=== PATIENT | female | born 1940 | race Caucasian/White ===

== ENCOUNTER → 2017-01-28 | Outpatient (REF) | payer OTHER ==
[~2017-01-28] MED LIST: ASPI1TAB PO; ATOR1TAB19 PO; BACT800T5 PO; BUSP5TA PO; COUM2.5T17 PO; DIFL150T PO; DULO1CAP3 PO; LORA1TAB12 PO; METF500T13 PO; NEXI40CA PO; PRAV80TA PO; RANI150C PO; RELAFEN PO; TRAM50TA2 PO; TRAZ50TA11 PO; TYLE167L PO; VITA1CAP40 PO; VITA20008 PO
[2017-01-28 16:56] LABS: ANION GAP 9 MEQ/L (8-16); BLOOD UREA NITROGEN 16 MG/DL (7-18); CALCIUM LEVEL 8.7 MG/DL (8.8-10.2); CARBON DIOXIDE LEVEL 26 MEQ/L (21-32); CHLORIDE LEVEL 104 MEQ/L (98-107); CREATININE FOR GFR 0.72 MG/DL (0.55-1.02); GLOMERULAR FILTRATION RATE > 60.0 (>39); GLUCOSE, FASTING 104 MG/DL (83-110); POTASSIUM SERUM 4.1 MEQ/L (3.5-5.1); SODIUM LEVEL 139 MEQ/L (136-145); TOTAL PROTEIN 7.3 GM/DL (6.4-8.2)
[2017-01-29 11:57] LABS: ALBUMIN % 53.4 % (55.8-66.1); GAMMA GLOBULIN % 15.8 % (11.1-18.8)
== END ==
LOC: M SFHCPLAZ 13:42
DX: M54.42 Lumbago with sciatica, left side (principal); E11.9 Type 2 diabetes mellitus without complications
CPT/HCPCS: 36415; 80048; 82043; 83036; 84165; 84166; 85652; 86140; G0463

== ENCOUNTER → 2017-05-05 | Outpatient (REF) | payer OTHER | LOC: M SFHCPLAZ 10:57 | DX: Z00.00 Encounter for general adult medical examination without abnormal findings (principal); B02.9 Zoster without complications; Z79.899 Other long term (current) drug therapy | CPT/HCPCS: 36415; 80061; 82043; 83036; G0463 ==

== ENCOUNTER → 2017-06-01 | Outpatient (CLI) | payer OTHER ==
[2017-06-01 11:03] LABS: MEAN CORPUSCULAR HGB CONC 32.5 g/dl (32.0-36.5); MEAN CORPUSCULAR VOLUME 92.3 fl (80.0-96.0); RED CELL DISTRIBUTION WIDTH 13.6 % (11.5-14.5); WHITE BLOOD COUNT 9.9 10^3/uL (4.0-10.0)
[2017-06-01 11:06] LABS: CALCIUM OXALATE CRYSTALS SMALL
[2017-06-01 11:32] LABS: ALBUMIN 3.8 GM/DL (3.2-5.2); ALBUMIN/GLOBULIN RATIO 0.97 (1.00-1.93); ALKALINE PHOSPHATASE 53 U/L (45-117); ALT/SGPT 19 U/L (12-78); ANION GAP 7 MEQ/L (8-16); AST/SGOT 17 U/L (15-37); BILIRUBIN,TOTAL 0.2 MG/DL (0.2-1.0); BLOOD UREA NITROGEN 17 MG/DL (7-18); CALCIUM LEVEL 10.2 MG/DL (8.8-10.2); CARBON DIOXIDE LEVEL 28 MEQ/L (21-32); CHLORIDE LEVEL 104 MEQ/L (98-107); CREATININE FOR GFR 0.68 MG/DL (0.55-1.02); GLOMERULAR FILTRATION RATE > 60.0 (>39); GLUCOSE, FASTING 108 MG/DL (83-110); POTASSIUM SERUM 4.4 MEQ/L (3.5-5.1); SODIUM LEVEL 139 MEQ/L (136-145); TOTAL PROTEIN 7.7 GM/DL (6.4-8.2)
[2017-06-01 11:33] LABS: INR 0.93
--- NOTE | 2017-06-01 13:46 | ECGEPIP ---
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
--- NOTE | 2017-06-01 14:23 | REP ---
Chest two views HISTORY: Left hip arthritis Comparison: 02/01/2014 A calcified granuloma is present in the left lower lobe. The right lung is clear. The heart is normal in size. The pulmonary vasculature is normal in appearance. The bony structure is intact. IMPRESSION: No acute disease. Signed by Miles Wilson MD 06/01/2017 02:14 P
== END ==
LOC: M ADMPAT 09:20
PROVIDERS: ATTEND Orthopaedic Surgery
DX: M16.12 Unilateral primary osteoarthritis, left hip (principal); Z79.01 Long term (current) use of anticoagulants

== ENCOUNTER 2017-06-14 05:45 | Inpatient (IN) | payer OTHER ==
[2017-06-01 09:45] VITALS: BP 156/74
--- NOTE | 2017-06-09 12:38 | HPE ---
DATE OF ADMISSION: 06/14/2017 HISTORY OF PRESENT ILLNESS: This is a pleasant female with continuing symptomatic left hip osteoarthritis. The patient has consented for a left total hip arthroplasty per Dr. Arnold Scanlon. Medical optimization per Dr. Costa. I did review her note with optimization, and x-rays showed advanced osteoarthritis. ALLERGIES: SURGICAL TAPE causes some sort of skin excoriation. CURRENT MEDICATION LIST: - Cymbalta 20 mg - cyclobenzaprine HCl 5 mg MEDICAL PROBLEM LIST: Includes left hip osteoarthritis. Obesity. Anxiety. Recent diagnosis of hypertension, which is going to be followed up by Dr. Costa, noted in her note. SURGICAL HISTORY: Tubal ligation. FAMILY HISTORY: Is pertinent for arthritis, hypertension. SOCIAL HISTORY: She is a former smoker. Denies ethanol intake or illicit drugs. REVIEW OF SYSTEMS: She denies chest pain, shortness of breath, dyspnea on exertion, fever, chills, malaise, upper respiratory or urinary tract symptoms. PHYSICAL EXAMINATION: Height 5 feet 5 inches, weight 252, temperature 98.6, blood pressure 120/70, pulse 64, respiration 16. She is a pleasant obese female, in no acute distress. She is alert and oriented times three. Mood and affect are appropriate. She arrives in a wheelchair with her helping. Left hip range of motion is limited and irritable through internal and external range of motion. Bilateral lower extremities are benign, noninfectious-looking, with no breaks. Bowel soft, nontender times four. Chest rises symmetrically. Regular rate and rhythm. Lungs clear to auscultation. Neck supple. Negative jugular venous distention (JVD) or bruits. Normocephalic. LABORATORIES: Were reviewed. She had heavy susceptible Staphylococcus aureus and, therefore, was provided a bactroban ointment and Hibiclens wash prescription with instructions. Urine culture negative. Remaining laboratories look grossly within normal limits. Anion gap 7, albumin-globulin ratio 0.97, ESR 62, GFR greater than 60. I did not have access to her chest x-ray and electrocardiogram (EKG) today, but once again her clearance note was reviewed, and she was deemed to be moderate risk for procedure, per Dr. Georgette Muro, with a planned followup in 1 week for elevated blood pressure (BP). Consent is updated. IMPRESSION: 1. Symptomatic left hip osteoarthritis. 2. The patient consented for a left total hip arthroplasty per Dr. Arnold Scanlon. 3. Medical optimization per Dr. Georgette Muro. 4. On-call to operating room (OR), 2 grams intravenous (IV) Kefzol in OR. 5. Sequential compression device (SCD) and thromboembolic deterrents (TEDs) in OR. 6. The patient is prescribed bactroban and Hibiclens prophylaxis per heavy susceptible Staphylococcus aureus on nasal culture. MTDD
[2017-06-14] VITALS (8 sets, daily range): BP systolic 147–176; BP diastolic 79–98; O2SAT 96
[~2017-06-14] VITALS: Ht 165.1 cm; Wt 96.2 kg
[~2017-06-14 05:45] MED LIST changes: -COUM2.5T17 PO; -TRAM50TA2 PO
[2017-06-14] MEDS ORDERED: LR 1,000 ML IV SCH ×2 (06:00→10:45)
[2017-06-14] MEDS ORDERED: LIDOCAINE 1% MDV 20ML VIAL SQ PRN (06:15)
[2017-06-14] MEDS ORDERED: LR 1,000 ML IV ONE (06:15)
[2017-06-14] MEDS ORDERED: TRANEXAMIC ACID 100 MG/ML 10ML VIAL As Ordered ONE (06:18)
[2017-06-14] MEDS ORDERED: BUPIVACAINE HCL 0.25% 30 ML VIAL As Ordered ONE (06:19)
[2017-06-14] MEDS ORDERED: ceFAZolin 1GM INJ (J0690) As Ordered ONE (06:19)
[2017-06-14] MEDS ORDERED: EPINEPHrine INJ 1 MG/ML 1ML AMP As Ordered ONE (06:19)
[2017-06-14] MEDS ORDERED: fentaNYL 100 MCG/2 ML INJECTION (J3010) As Ordered ONE (07:04)
[2017-06-14] MEDS ORDERED: ONDANSETRON 4MG/2ML VIAL (J2405) As Ordered ONE (07:04)
[2017-06-14] MEDS ORDERED: LIDOCAINE 2% INJ 100 MG/5 ML SDV (FOR ANES.) As Ordered ONE (07:04)
[2017-06-14] MEDS ORDERED: ROCURONIUM BROMIDE 50 MG/5 ML VIAL/SYRINGE As Ordered ONE (07:04)
[2017-06-14] MEDS ORDERED: PROPOFOL 200 MG/20 ML VIAL As Ordered ONE (07:04)
[2017-06-14] MEDS ORDERED: dexameTHASONE 4 MG/ML 1ML VIAL (J1100) As Ordered ONE (07:04)
[2017-06-14] MEDS ORDERED: PHENYLephrine HCL 500 MCG/5 ML (100MCG/ML) SYRINGE (J2370) As Ordered ONE ×2 (07:04→09:16)
[2017-06-14] MEDS ORDERED: MIDAZOLAM INJ 2 MG/2 ML VIAL (J2250) As Ordered ONE (07:05)
--- NOTE | 2017-06-14 08:28 | IPN ---
DATE: 06/14/2017 The patient is seen and examined. She wished to go ahead with a left total hip arthroplasty. She understands the nature of this, the risks of bleeding, infection, damage to nerves, vessels, persistent pain, wear loosening, dislocation, leg length inequality, blood clots, medical problems, among others.
[2017-06-14] MEDS: DULoxetine 30 MG CAP (CYMBALTA) PO SCH (09:00)
--- NOTE | 2017-06-14 10:27 | RO ---
DATE OF PROCEDURE: 06/14/2017 PREOPERATIVE DIAGNOSIS: Left hip osteoarthritis. POSTOPERATIVE DIAGNOSIS: Left hip osteoarthritis. PROCEDURE: Left total hip arthroplasty using a Theodosia standard size 5 stem and a +5 36 ball and a 52 cup. SURGEON: Arnold Scanlon MD MANAGER ACADEMIC: Mike Stapleton PA-C ANESTHESIA: Spinal ESTIMATED BLOOD LOSS (EBL): Less than 200. COMPLICATION: None. INDICATION: A 76-year-old morbidly obese woman with severe left hip arthritis that has been refractory to conservative management. She wished to go ahead with surgical treatment. She understood the nature of the procedure, the risks of bleeding, infection, damage to nerves, vessels, persistent pain, wear loosening, dislocation, leg length inequality, blood clots, medical problems, , among others. DESCRIPTION OF PROCEDURE: The patient taken to the operating room and placed in supine position after spinal anesthesia was induced. We then turned her in the right lateral decubitus position and placed her on the Girish positioner. All areas were padded appropriately. The left hip was prepped and draped in the usual sterile fashion. Time-out was performed. I then created a longitudinal incision over the lateral aspect of the hip. She had significant subcutaneous fatty tissue until I was able to get down to the fascia vanna. The incision was a little longer than typical because of her obesity. I then incised the fascia vanna and exposed the abductors. The anterior 40% or so of the abductors were dissected off the anterior aspect of the femur as I dissected along the femoral neck, splitting the labrum. I gradually externally rotated the femur as I dissected around until it was freed up down to the lesser trochanter. After two or three attempts, we were able to get the hip dislocated, but this was fairly challenging. She did have severe arthritis. I then used the canal initiating reamer followed by the intramedullary canal finding reamer followed by the lateralizing reamer and then cut the neck off about three-quarters of a fingerbreadth up from the lesser trochanter. The head was removed. I then prepared the acetabulum, removing any soft tissue from around the acetabulum. It was noted that she had significant anterior inferior osteophytes. I then sequentially reamed up to a size 51, which had good bleeding bone. I was able to medialized it down to about the floor. Good bleeding bone was noted. I then irrigated copiously and then selected the 52 cup, which was impacted in place in the appropriate amount of anteversion and horizontal tilt. Excellent position and excellent seating was noted. Mcleod hole eliminator was placed, and this was done after I confirmed that the cup was well seated. The polyethylene was then inserted. impacted in place, size 52 x 36, and the osteophytes were then removed with an osteotome and a rongeur. I then prepared the femur with broaches and sequentially broached up to a size 5, which I was able to countersink slightly, so I used the calcar planer. I then trialed off this, and it felt like the +5 was the most appropriate for stability and soft tissue tension. I put the hip through a range of motion, and excellent stability was noted. There was minimal shuck in full extension. I had irrigated multiple times and again irrigated at this point I had irrigated prior to cup placement. I irrigated the canal after removing the trial components and then inserted the size 5 Theodosia stem, impacted it down. Excellent fit was noted, and it was very solid. I dried the taper, placed the +5 36 ball, impacted this in place, and then reduced the hip with the marketing assistant's help, and put the hip through a range of motion. Again, excellent stability and soft tissue tension was noted. There was no dislocation with extension, external rotation, flexion, internal rotation, although her thigh did impinge on her pannus so I was not able to flex her up to fully 90 degrees due to her obesity. I irrigated again, used the tranexamic acid (TXA) solution, and repaired the minimus with #1 Vicryl suture, the abductor with #1 Vicryl suture with several good purchases and a couple through the bone. Irrigated. Repaired the fascia vanna with interrupted #1 Vicryl sutures, followed by running Stratafix suture starting in the midportion, and we each worked in opposite directions. I also placed a Stratafix #0 in the subcutaneous tissue to close down some of the space. and this help reapproximate the fatty tissue. The subcutaneous was closed with #2-0 Vicryl, the skin with sean, and a sterile dressing was applied. She was taken to the recovery room in stable condition. There were no known complications. The plan will be routine postoperative for hip replacement. The marketing assistant was instrumental in holding retractors and reducing and dislocating the hip and assisting in wound closure. This was coded as an unusually difficult procedure because the patient had morbid obesity, had significant subcutaneous fat which made the exposure much more difficult and made it much more difficult to reduce and dislocate the hip, and overall placing the acetabulum, wound closure, etc. was more time consuming and more challenging.
[2017-06-14] MEDS ORDERED: MORPHINE 1MG/ML IN 0.9% NACL 100ML IV BAG As Ordered ONE (10:29)
[2017-06-14] MEDS ORDERED: ONDANSETRON 4MG/2ML VIAL (J2405) IV PRN ×2 (10:45)
[2017-06-14] MEDS ORDERED: NALBUPHINE HCL 10 MG/ML AMP (J2300) IV PRN (10:45)
[2017-06-14] MEDS ORDERED: MORPHINE 1MG/ML IN 0.9% NACL 100ML IV BAG IV PRN (10:45)
[2017-06-14] MEDS ORDERED: PERCOCET 5MG/325MG TAB PO PRN (10:45)
[2017-06-14] MEDS ORDERED: NALOXONE INJ 0.4 MG/1 ML VIAL (J2310) IV PRN (10:45)
[2017-06-14] MEDS ORDERED: FLEET ENEMA PR PRN (10:45)
[2017-06-14] MEDS ORDERED: EPIDURAL/PCA KEYS XX PRN (10:45)
[2017-06-14] MEDS ORDERED: diphenhydrAMINE INJ 50MG/ML VIAL (J1200) IV PRN (10:45)
[2017-06-14] MEDS ORDERED: fentaNYL 100 MCG/2 ML INJECTION (J3010) IV PRN (10:45)
[2017-06-14] MEDS ORDERED: ACETAMINOPHEN TAB 650MG DOSE (2X325MG) PO PRN (10:45)
[2017-06-14] MEDS: LR 1,000 ML IV SCH ×2 (13:05→17:04)
[2017-06-14] MEDS ORDERED: WARFARIN SOD 5 MG TAB PO ONE (17:00)
[2017-06-14] MEDS ORDERED: DEXTROSE 50% 50 ML SYRINGE IV PRN (20:45)
[2017-06-14] MEDS ORDERED: GLUCAGON FOR INJ 1 MG VIAL (J1610) SC PRN (20:45)
[2017-06-14] MEDS ORDERED: GLUCOSE 4 GM CHEW TABLET PO PRN (20:45)
[2017-06-14] MEDS: HumaLOG INSULIN (NovoLOG) PER UNIT SC SCH (21:00)
[2017-06-14] MEDS: RAMELTEON 8 MG TAB (ROZEREM) PO SCH (21:00)
[2017-06-14] MEDS: PRAVASTATIN 20 MG TAB PO SCH (21:31)
[2017-06-15 02:00] VITALS: BP 141/81
[2017-06-15 06:00] VITALS: BP 143/80
[2017-06-15 06:50] LABS: MEAN CORPUSCULAR HEMOGLOBIN 30.1 pg (27.0-33.0); MEAN CORPUSCULAR VOLUME 94.1 fl (80.0-96.0); PLATELET COUNT, AUTOMATED 288 10^3/uL (150-450); RED CELL DISTRIBUTION WIDTH 13.1 % (11.5-14.5); WHITE BLOOD COUNT 13.9 10^3/uL (4.0-10.0)
[2017-06-15 07:09] LABS: INR 1.13
[2017-06-15] MEDS: MIRALAX *UNIT DOSE* 17GM PACKET PO SCH (08:06)
[2017-06-15] MEDS: SENOKOT S TAB PO SCH ×2 (08:06→20:53)
[2017-06-15] MEDS: HumaLOG INSULIN (NovoLOG) PER UNIT SC SCH ×4 (08:06→20:56)
[2017-06-15] MEDS: MOM 30ML SUSPENSION UDC PO SCH (08:06)
[2017-06-15] MEDS: DULoxetine 30 MG CAP (CYMBALTA) PO SCH (08:06)
[2017-06-15] MEDS: PERCOCET 5MG/325MG TAB PO PRN ×3 (08:07→20:55)
[2017-06-15] MEDS: ONDANSETRON 4 MG TAB (S0181) PO PRN ×2 (08:19→12:30)
--- NOTE | 2017-06-15 10:46 | REP ---
LEFT HIP, TWO VIEWS: Two views of the left hip are performed. Total hip prosthesis is noted in good position. Structures are well aligned and intact. Signed by Clifton Cummings MD 06/16/2017 04:24 P
[2017-06-15 13:32] VITALS: O2SAT 95
--- NOTE | 2017-06-15 13:49 | IPN ---
DATE OF SERVICE: 06/15/2017 Ms. Youssef is feeling well this morning. She has a number of visitors. She is not complaining of any chest pain, shortness of breath. Is tolerating a diet. Has been nauseous but did receive Zofran with good effect. Temperature is 97.3, pulse 94, respiratory rate 13, blood pressure 143/80, 97% on 2 liters. Intake and output (I and O) notable for a positive fluid balance of 2000. Body mass index 35.3. Is awake, appropriately interactive, pleasantly conversant. Neck supple. Breathing is symmetrical. I-E ratio is 1:3. Heart is distant sounding. Normal S1, S2. Abdomen soft, doughy, nontender. White cell count 13.9, hemoglobin 10.7, fasting glucose of 145. My assessment is as follows: This is a 76-year-old status post left total hip replacement. The plan is as follows: 1. Orthopedic. Diet, activity, deep venous thrombosis (DVT) prophylaxis, discharge pain medications per orthopedics. 2. The patient has a history of hypertension, which is reasonably well controlled for the current setting. 3. The patient has a history of anxiety. Continued on duloxetine. 4. The patient has a history of hyperlipidemia. On statins. 5. The patient has a history of diabetes. On metformin. During the course of her hospital stay, will be placed on insulin.
[2017-06-15] MEDS ORDERED: WARFARIN SOD 5 MG TAB PO ONE (17:00)
[2017-06-15] MEDS: PRAVASTATIN 20 MG TAB PO SCH (20:53)
[2017-06-15] MEDS: RAMELTEON 8 MG TAB (ROZEREM) PO SCH (20:56)
[2017-06-15 22:00] VITALS: BP 94/58
[2017-06-16] MEDS: PERCOCET 5MG/325MG TAB PO PRN ×4 (01:11→14:07)
[2017-06-16 06:00] VITALS: BP 101/71
[2017-06-16 06:56] LABS: MEAN CORPUSCULAR HEMOGLOBIN 29.7 pg (27.0-33.0); MEAN CORPUSCULAR HGB CONC 31.1 g/dl (32.0-36.5); MEAN CORPUSCULAR VOLUME 95.5 fl (80.0-96.0); PLATELET COUNT, AUTOMATED 235 10^3/uL (150-450); RED CELL DISTRIBUTION WIDTH 13.2 % (11.5-14.5)
[2017-06-16 07:10] LABS: INR 1.34
[2017-06-16 07:15] LABS: ANION GAP 2 MEQ/L (8-16); BLOOD UREA NITROGEN 12 MG/DL (7-18); CALCIUM LEVEL 8.5 MG/DL (8.8-10.2); CARBON DIOXIDE LEVEL 35 MEQ/L (21-32); CHLORIDE LEVEL 99 MEQ/L (98-107); CREATININE FOR GFR 0.68 MG/DL (0.55-1.02); GLOMERULAR FILTRATION RATE > 60.0 (>39); GLUCOSE, FASTING 149 MG/DL (83-110); SODIUM LEVEL 136 MEQ/L (136-145)
[2017-06-16] MEDS: DULoxetine 30 MG CAP (CYMBALTA) PO SCH (08:59)
[2017-06-16] MEDS: MOM 30ML SUSPENSION UDC PO SCH (08:59)
[2017-06-16] MEDS: MIRALAX *UNIT DOSE* 17GM PACKET PO SCH (08:59)
[2017-06-16] MEDS: SENOKOT S TAB PO SCH ×2 (08:59→19:46)
[2017-06-16] MEDS: HumaLOG INSULIN (NovoLOG) PER UNIT SC SCH ×4 (09:00→22:00)
[2017-06-16] MEDS ORDERED: WARFARIN SOD 4 MG TAB PO ONE (17:00)
[2017-06-16] MEDS ORDERED: traMADol 50 MG TAB PO ONE (17:15)
[2017-06-16] MEDS ORDERED: traMADol 50 MG TAB PO SCH ×2 (17:30→21:00)
--- NOTE | 2017-06-16 19:43 | IPN ---
DATE: 06/16/2017 Ms. Youssef has had some uncontrolled pain overnight. This morning she is somewhat somnolent. Her family is concerned that with the use of two Percocet pills she becomes too tired and will not be able to do physical therapy today. Temperature is 98.4, pulse 82, respirations 18, blood pressure 101/71, 95% on 2 liters. Intake and output notable for positive fluid status of 400. No bowel movements noted. She is awake when aroused easily. Mucous membranes moist. Neck supple, thick, Breathing is symmetrical. Inspiratory to expiratory (I-to-E) ratio is 1:3. No wheezes, rales, or rhonchi. Heart is distant sounding. Normal S1, S2. Radial pulses 2+. Abdomen soft. Hypoactive bowel sounds. Nontender. White cell count 12, hemoglobin 9.8, platelets of 235. BUN 12, creatinine 0.68. ASSESSMENT: This is a 76-year-old status post left total hip replacement. PLAN: 1. Orthopedic. Diet, activity, deep vein thrombosis (DVT) prophylaxis, discharge, gastrointestinal (GI) regimen, and pain medications per orthopedics. In this instance though, I discussed the use of two Percocets with the orthopedic team, and I have decreased on the patient to a maximum of one Percocet at a time, which hopefully will accomplish dual goals of pain management and limiting sedation. 2. Patient has hypertension, which is reasonably well controlled for the setting. 3. Patient has history of anxiety, on duloxetine. 4. Patient has hyperlipidemia, on statins, which are continued in the perioperative period. 5. Patient has a history of diabetes and is on insulin. Can be returned to metformin at the time of discharge.
[2017-06-16] MEDS: RAMELTEON 8 MG TAB (ROZEREM) PO SCH (19:46)
[2017-06-16] MEDS: PRAVASTATIN 20 MG TAB PO SCH (19:46)
[2017-06-16] MEDS: traMADol 50 MG TAB PO PRN (19:48)
[2017-06-16 21:00] VITALS: O2SAT 95
[2017-06-16 22:00] VITALS: BP 121/63
[2017-06-17] MEDS: traMADol 50 MG TAB PO PRN ×3 (00:27→12:17)
[2017-06-17 06:00] VITALS: BP 139/94
[2017-06-17 07:04] LABS: INR 1.26
[2017-06-17] MEDS: MOM 30ML SUSPENSION UDC PO SCH (08:16)
[2017-06-17] MEDS: MIRALAX *UNIT DOSE* 17GM PACKET PO SCH (08:16)
[2017-06-17] MEDS: HumaLOG INSULIN (NovoLOG) PER UNIT SC SCH ×4 (08:16→21:00)
[2017-06-17] MEDS: DULoxetine 30 MG CAP (CYMBALTA) PO SCH (08:17)
[2017-06-17] MEDS: SENOKOT S TAB PO SCH ×2 (08:17→22:32)
[2017-06-17] MEDS ORDERED: COUM2.5T17 PO (09:15)
[2017-06-17] MEDS ORDERED: TRAM50TA2 PO (09:15)
[2017-06-17 14:00] VITALS: BP 145/70
[2017-06-17] MEDS: ACETAMINOPHEN 500 MG TAB PO SCH ×3 (16:32→22:32)
[2017-06-17] MEDS ORDERED: WARFARIN SOD 7.5 MG TAB PO ONE (17:00)
[2017-06-17] MEDS: RAMELTEON 8 MG TAB (ROZEREM) PO SCH (21:00)
[2017-06-17 22:00] VITALS: BP 147/66
[2017-06-17] MEDS: PRAVASTATIN 20 MG TAB PO SCH (22:30)
--- NOTE | 2017-06-18 05:44 | IPN ---
DATE: 06/17/2017 SUBJECTIVE: Ms. Youssef is much more awake and interactive today. When I come in to evaluate her, she is sitting in a chair and her daughter is in the bed. No complaints of chest pain. No shortness of breath. OBJECTIVE: VITAL SIGNS: Temperature is 96.7, pulse 94, respiratory rate 18, blood pressure 139/94, 91% on two liters. INTAKE AND OUTPUT: Notable for negative fluid status of minus 660. GENERAL: She is awake, appropriately interactive. LUNGS: Breathing is symmetrical. I to E ratio is 1:3. No wheezes, rales, or rhonchi. No accessory muscle use. Speaking in complete sentences. HEART: Regular rate and rhythm. Radial pulses 2+. Capillary refill is less than two seconds. ABDOMEN: Soft, somewhat distended. Hypoactive bowel sounds. LABORATORY DATA: White cell count 12, hemoglobin 9.8, platelets 235. BUN 12, creatinine 0.68. ASSESSMENT: This is a 76-year-old status post left total hip replacement. PLAN: 1. Orthopedic, diet, deep venous thrombosis (DVT) prophylaxis, pain management and gastrointestinal (GI) regimen per orthopedics. 2. The patient has hypertension which is reasonably well controlled in the current setting. 3. The patient has anxiety on duloxetine. 4. The patient has hyperlipidemia on statin. 5. The patient has diabetes, currently on insulin. Fingersticks are reasonably well controlled for the current setting. Will be transitioned to metformin at the time of discharge.
[2017-06-18 06:00] VITALS: BP 138/99
[2017-06-18 07:42] LABS: INR 1.45
[2017-06-18] MEDS: SENOKOT S TAB PO SCH (08:35)
[2017-06-18] MEDS: DULoxetine 30 MG CAP (CYMBALTA) PO SCH (08:35)
[2017-06-18] MEDS: ACETAMINOPHEN 500 MG TAB PO SCH (08:35)
[2017-06-18] MEDS: MOM 30ML SUSPENSION UDC PO SCH (08:35)
[2017-06-18] MEDS: MIRALAX *UNIT DOSE* 17GM PACKET PO SCH (08:35)
[2017-06-18] MEDS: HumaLOG INSULIN (NovoLOG) PER UNIT SC SCH ×2 (08:35→12:00)
--- NOTE | 2017-06-21 08:22 | DSES ---
DATE OF ADMISSION: 06/14/2017 DATE OF DISCHARGE: 06/18/2017 HISTORY OF PRESENT ILLNESS: Is a pleasant female with continuing symptomatic left knee osteoarthritis. She consented for a left total knee arthroplasty per Dr. Arnold Sacnlon. Medical optimization was performed by Dr. Costa. X-rays were consistent with advanced osteoarthritis. OPERATION PERFORMED: Left total hip arthroplasty. HOSPITAL COURSE: The patient uneventfully underwent left total hip arthroplasty on under spinal anesthesia and was returned to recovery comfortable. Hospital team felt the patient ready to be discharged on 06/18/2017 with the following instructions: Weightbearing as tolerated left lower extremity with a walker, Coumadin and PATIENCE stockings times 30 days, diet is regular, Percocet as needed for pain, Optifoam dressing change in 4 days time. Followup in clinic for wound check, staple removal 12-14 days. The patient is encouraged to contact the office sooner with increased pain, redness, drainage, bleeding, numbness down his lower extremity, fever greater than 101 or further concerns. NAMITA
== END 2017-06-18 13:30 | disposition home health service (06) | DRG 470 ==
LOC: M OR 05:45 → M MS5PR 13:05
PROVIDERS: ADMIT Orthopaedic Surgery; ATTEND Orthopaedic Surgery
PROC: 0SRB0JA Replacement of Left Hip Joint with Synthetic Substitute, Uncemented, Open Approach (ICD-10-PCS; principal; 2017-06-14 07:30)
DX: M16.12 Unilateral primary osteoarthritis, left hip (principal); I10 Essential (primary) hypertension; Z79.899 Other long term (current) drug therapy; E66.9 Obesity, unspecified; F41.9 Anxiety disorder, unspecified; Z87.891 Personal history of nicotine dependence; E78.5 Hyperlipidemia, unspecified; E11.9 Type 2 diabetes mellitus without complications; Z79.4 Long term (current) use of insulin

== ENCOUNTER → 2017-06-21 | Outpatient (REF) | payer OTHER ==
[~2017-06-21] MED LIST changes: +COUM2.5T17 PO; +TRAM50TA2 PO
[2017-06-21 14:00] LABS: INR 1.68
== END ==
LOC: M SHH 13:24
PROVIDERS: ATTEND Nurse Practitioner Family
DX: Z51.81 Encounter for therapeutic drug level monitoring (principal); Z79.01 Long term (current) use of anticoagulants

== ENCOUNTER → 2017-07-01 | Outpatient (REF) | payer OTHER ==
[2017-07-01 15:29] LABS: INR 1.67
== END ==
LOC: M SHH 15:08
PROVIDERS: ATTEND Nurse Practitioner Family
DX: Z51.81 Encounter for therapeutic drug level monitoring (principal); Z79.01 Long term (current) use of anticoagulants

== ENCOUNTER → 2017-07-08 | Outpatient (REF) | payer OTHER ==
[2017-07-08 16:24] LABS: INR 1.96
== END ==
LOC: M SHH 15:49
PROVIDERS: ATTEND Nurse Practitioner Family
DX: Z51.81 Encounter for therapeutic drug level monitoring (principal); Z79.01 Long term (current) use of anticoagulants

== ENCOUNTER → 2017-07-12 | Outpatient (REF) | payer OTHER ==
[2017-07-12 12:54] LABS: INR 1.7
== END ==
LOC: M SHH 12:03
PROVIDERS: ATTEND Nurse Practitioner Family
DX: Z79.01 Long term (current) use of anticoagulants (principal)

== ENCOUNTER → 2017-12-25 | Outpatient (REF) | payer OTHER ==
[2017-12-25 20:02] LABS: APPEARANCE, URINE CLOUDY (CLEAR); BACTERIA, URINE AUTO 2+ (NEGATIVE); BILIRUBIN, URINE AUTO NEGATIVE (NEGATIVE); BLOOD, URINE BLOOD 1+ (NEGATIVE); COLOR, URINE AMBER (YELLOW); GLUCOSE, URINE (UA) AUTO NEGATIVE (NEGATIVE); KETONE, URINE AUTO NEGATIVE (NEGATIVE); LEUKOCYTE ESTERASE, URINE AUTO 2+ (NEGATIVE); MUCUS, URINE SMALL (NEGATIVE); NITRITE, URINE AUTO POSITIVE (NEGATIVE); PROTEIN, URINE AUTO NEGATIVE (NEGATIVE); RBC, URINE AUTO 2 /HPF (0-3); SPECIFIC GRAVITY URINE AUTO 1.025 (1.002-1.035); SQUAMOUS EPITHELIAL CELL UR AU 6 /HPF (0-6); UROBILINOGEN, URINE AUTO 0.2 mg/dL (0.0-2.0); WBC, URINE AUTO 44 /HPF (0-3)
== END ==
LOC: M LAB REF 15:23
DX: R30.0 Dysuria (principal)
CPT/HCPCS: 81001

== ENCOUNTER → 2018-06-23 | Outpatient (REF) | payer OTHER | LOC: M SFHCPLAZ 14:47 | DX: Z00.00 Encounter for general adult medical examination without abnormal findings (principal); L74.9 Eccrine sweat disorder, unspecified ==

== ENCOUNTER → 2018-07-04 | Outpatient (REF) | payer OTHER ==
[2018-07-04 12:04] LABS: BASO # 0.1 10^3/uL (0.0-0.2); BASO % 0.8 % (0.0-1.0); EOS # 0.4 10^3/uL (0.0-0.50); EOS % 4.5 % (0.0-3.0); HEMATOCRIT 41.1 % (36.0-47.0); HEMOGLOBIN 13.2 g/dl (12.0-15.5); IMMATURE GRANULOCYTE % 0.2 % (0-3.0); LYMPH # 2.4 10^3/uL (1.5-4.5); LYMPH % 27.5 % (24.0-44.0); MEAN CORPUSCULAR HEMOGLOBIN 29.1 pg (27.0-33.0); MEAN CORPUSCULAR HGB CONC 32.1 g/dl (32.0-36.5); MEAN CORPUSCULAR VOLUME 90.5 fl (80.0-96.0); MONO # 0.8 10^3/uL (0.0-0.8); MONO % 8.7 % (0.0-5.0); NEUTROPHILS # 5.1 10^3/uL (1.8-7.7); NEUTROPHILS % 58.3 % (36.0-66.0); PLATELET COUNT, AUTOMATED 338 10^3/uL (150-450); RED BLOOD COUNT 4.54 10^6/uL (4.00-5.40); RED CELL DISTRIBUTION WIDTH 12.9 % (11.5-14.5); WHITE BLOOD COUNT 8.8 10^3/uL (4.0-10.0)
[2018-07-04 12:52] LABS: MALB URINE SIEMENS 58.4 MG/L; MAU/CREAT RATIO 24.4 MCG/MG (0.0-30.0)
[2018-07-04 13:14] LABS: ALBUMIN 3.6 GM/DL (3.2-5.2); ALBUMIN/GLOBULIN RATIO 0.92 (1.00-1.93); ALKALINE PHOSPHATASE 61 U/L (45-117); ALT/SGPT 26 U/L (12-78); ANION GAP 10 MEQ/L (8-16); AST/SGOT 20 U/L (7-37); BILIRUBIN,TOTAL 0.3 MG/DL (0.2-1.0); BLOOD UREA NITROGEN 14 MG/DL (7-18); CARBON DIOXIDE LEVEL 27 MEQ/L (21-32); CHLORIDE LEVEL 105 MEQ/L (98-107); CHOLESTEROL LEVEL 165 MG/DL (<200); CHOLESTEROL RISK RATIO 2.619 (<5); CREATININE FOR GFR 0.76 MG/DL (0.55-1.30); GLOMERULAR FILTRATION RATE > 60.0 (>39); GLUCOSE, FASTING 111 MG/DL (70-100); HDL CHOLESTEROL 63 MG/DL (>40); LDL CHOLESTEROL 74 MG/DL (<100); NON-HDL-C 102 MG/DL; POTASSIUM SERUM 4.2 MEQ/L (3.5-5.1); SODIUM LEVEL 142 MEQ/L (136-145); TOTAL PROTEIN 7.5 GM/DL (6.4-8.2); TRIGLYCERIDES LEVEL 139 MG/DL (<150)
[2018-07-04 14:33] LABS: ESTIMATED AVERAGE GLUCOSE 146 MG/DL (60-110); HEMOGLOBIN A1c 6.7 %
== END ==
LOC: M SFHCPLAZ 09:51
DX: Z00.00 Encounter for general adult medical examination without abnormal findings (principal); L74.9 Eccrine sweat disorder, unspecified; E11.9 Type 2 diabetes mellitus without complications; E66.01 Morbid (severe) obesity due to excess calories; Z68.39 Body mass index [BMI] 39.0-39.9, adult
CPT/HCPCS: 84443

== ENCOUNTER → 2018-07-11 | Outpatient (CLI) | payer OTHER | LOC: M WHC 13:36 | DX: Z12.31 Encounter for screening mammogram for malignant neoplasm of breast (principal) | CPT/HCPCS: 77067 ==

== ENCOUNTER → 2018-09-22 | Outpatient (REF) | payer OTHER ==
[~2018-09-22] MED LIST changes: +TRAZ-160 PO; -TRAZ50TA11 PO; -VITA1CAP40 PO; +VITA50005 PO
[2018-09-22 15:45] LABS: APPEARANCE, URINE CLOUDY (CLEAR); BACTERIA, URINE AUTO 1+ (NEGATIVE); BILIRUBIN, URINE AUTO NEGATIVE (NEGATIVE); BLOOD, URINE BLOOD 3+ (NEGATIVE); CALCIUM OXALATE CRYSTALS MODERATE; COLOR, URINE YELLOW (YELLOW); GLUCOSE, URINE (UA) AUTO NEGATIVE (NEGATIVE); KETONE, URINE AUTO NEGATIVE (NEGATIVE); LEUKOCYTE ESTERASE, URINE AUTO 3+ (NEGATIVE); MUCUS, URINE SMALL (NEGATIVE); NITRITE, URINE AUTO POSITIVE (NEGATIVE); PROTEIN, URINE AUTO 1+ mg/dL (NEGATIVE); RBC, URINE AUTO 167 /HPF (0-3); SPECIFIC GRAVITY URINE AUTO 1.024 (1.002-1.035); SQUAMOUS EPITHELIAL CELL UR AU 9 /HPF (0-6); UROBILINOGEN, URINE AUTO 0.2 mg/dL (0.0-2.0); WBC, URINE AUTO TNTC /HPF (0-3)
== END ==
LOC: M LAB REF 15:12
PROVIDERS: ATTEND Physician Assistant
DX: N39.0 Urinary tract infection, site not specified (principal)

== ENCOUNTER 2019-06-08 13:18 | Inpatient (IN) | payer MEDICARE, OTHER ==
[~2019-06-08] VITALS: Ht 167.6 cm; Wt 110.7 kg
[~2019-06-08 13:18] MED LIST changes: -ASPI1TAB PO; +ASPI81TA26 PO; -DULO1CAP3 PO; +DULO1CAP6 PO; -TRAZ-160 PO; +TRAZ-252 PO
[2019-06-08] MEDS ORDERED: CYCL5TAB PO (13:45)
[2019-06-08] MEDS ORDERED: IPRATROPIUM 0.5MG/ALBUTEROL 2.5MG INH SOL UD 3ML (DUONEB)(J7620) NEB ONE (14:15)
[2019-06-08 14:42] LABS: HEMATOCRIT 35.5 % (36.0-47.0); HEMOGLOBIN 11.5 g/dl (12.0-15.5); MEAN CORPUSCULAR HGB CONC 32.4 g/dl (32.0-36.5); MEAN CORPUSCULAR VOLUME 89.6 fl (80.0-96.0); PLATELET COUNT, AUTOMATED 203 10^3/uL (150-450); RED BLOOD COUNT 3.96 10^6/uL (4.00-5.40); WHITE BLOOD COUNT 12.2 10^3/uL (4.0-10.0)
[2019-06-08 15:01] LABS: ALBUMIN 2.6 GM/DL (3.2-5.2); ALT/SGPT 22 U/L (12-78); BILIRUBIN,DIRECT 0.2 MG/DL (0.0-0.2); BILIRUBIN,TOTAL 0.5 MG/DL (0.2-1.0); BLOOD UREA NITROGEN 49 MG/DL (7-18); CALCIUM LEVEL 8.8 MG/DL (8.8-10.2); CARBON DIOXIDE LEVEL 25 MEQ/L (21-32); CHLORIDE LEVEL 99 MEQ/L (98-107); CREATININE FOR GFR 2.41 MG/DL (0.55-1.30); GLOMERULAR FILTRATION RATE 20.8 (>39); GLUCOSE, FASTING 115 MG/DL (70-100); SODIUM LEVEL 131 MEQ/L (136-145); TOTAL PROTEIN 6.8 GM/DL (6.4-8.2)
[2019-06-08] MEDS ORDERED: NS 1,000 ML IV SCH ×2 (15:11→17:00)
[2019-06-08] MEDS ORDERED: methylPREDNISolone INJ 125 MG/2 ML VIAL (J2930) IV ONE (15:15)
[2019-06-08 15:25] LABS: ATYPICAL LYMPH 2 % (0-5); EOSINOPHILS 4 % (0-3); LYMPHOCYTES 11 % (16-44); MONOCYTES 5 % (0-5); NEUTROPHILS 74 % (28-66)
[2019-06-08 15:27] LABS: PLATELET ESTIMATE NORMAL (NORMAL)
[2019-06-08] MEDS ORDERED: ONDANSETRON 4MG/2ML VIAL (J2405) IV ONE (15:30)
[2019-06-08] MEDS ORDERED: MORPHINE 2 MG/ML 1ML VIAL (J2270) IV ONE (15:30)
[2019-06-08 15:31] LABS: INR 1.23; PROTHROMBIN TIME 15.2 SECONDS (11.8-14.0)
[2019-06-08 15:45] LABS: CK-MB VALUE MASS 1.5 NG/ML (<3.6); CPK CREATINE PHOSPHOKINASE 66 U/L (26-192); MB/CK RELATIVE INDEX 2.27 (< OR =4); TROPONIN I < 0.02 NG/ML (< 0.10)
[2019-06-08 15:52] LABS: ABG BASE EXCESS -2.2 (-2.0-2.0); ABG HCO3 21.6 MEQ/L (22.0-26.0); ABG O2 SATURATION 94.1 % (95.0-99.0); ABG PARTIAL PRESSURE CO2 34.2 mmHg (35.0-45.0); ABG PARTIAL PRESSURE O2 68.6 mmHg (75.0-100.0); ABG STANDARD HCO3 22.6 MEQ/L (22.0-26.0); ABG TOTAL CO2 22.7 MEQ/L (23.0-31.0); ABG pH (ARTERIAL) 7.419 UNITS (7.350-7.450)
--- NOTE | 2019-06-08 15:53 | REP ---
CT lumbar spine: 06/08/2019. Indication: Lumbar spine trauma. Comparison: None. Technique: Unenhanced axial CT images of the lumbar spine were obtained with coronal and sagittal reconstructions provided. Findings: There is no acute fracture, subluxation or dislocation. There is settling of the lumbar discs with vacuum disc phenomenon throughout. There is minimal anterolisthesis of L4 on L5 secondary to facet arthrosis. Please see dedicated CT of the abdomen pelvis for description of paraspinal soft tissue findings. Impression: No acute post traumatic injuries of the osseous lumbar spine. Multilevel degenerative sequelae. Grade 1 anterolisthesis of L4 on L5. Electronically Signed by Thanh Urrutia DO 06/08/2019 03:44 P
--- NOTE | 2019-06-08 16:22 | REP ---
CT abdomen and pelvis without IV or oral contrast: History: Injury in a fall. No comparison CT study. CT findings: Digital preliminary negative turner apprentice radiograph shows a normal bowel gas pattern. The lung bases show a granulomatous calcification in the left lower lobe and some minimal bibasilar fibrosis. There is another granulomatous calcification in the right middle lobe. The liver and the spleen are normal in size and homogeneous in texture. No definite abnormality in the gallbladder. No abnormality in the pancreas. No adrenal lesion is seen. There is a spherical lesion projecting anteriorly from the lower pole of the left kidney measuring 2.7 cm in greatest diameter. This shows relatively high attenuation and I cannot exclude a renal mass. No hydronephrosis or intrarenal calculus is noted on the left. On the right, however, the kidney shows moderate swelling and there is a obstructive calculus in the proximal ureter. The calculus measures 12 mm in greatest diameter and there is moderate hydronephrosis above this. There are two intrarenal calculi in the lower pole collecting system of the right kidney which are fairly large as well measuring 10 and 7 mm respectively. There is perinephric and amadou ureteral stranding. No distal ureteral calculus is observed. Urinary bladder is completely empty at the time of scanning but intact. No uterine or ovarian abnormality is seen. No left-sided hydronephrosis. There is left colonic diverticulosis without CT evidence of diverticulitis. No abdominal wall defect is seen. No bowel obstruction is seen. Impression: Acute obstructive uropathy right kidney with moderate hydronephrosis due to a 12 mm obstructive calculus in the proximal ureter. There are two large calculi within the right kidney collecting system as well. Perinephric and periureteral stranding and right renal enlargement are seen associated with this. Also noted is a 2.7 cm possible mass versus complex cyst in the lower pole left kidney. Recommend renal sonography or CT scanning post contrast for further evaluation. There is left colonic diverticulosis. Electronically Signed by Narinder Briones MD 06/08/2019 06:29 P
[2019-06-08 16:36] LABS: INFLUENZA A AMPLIFICATION NEGATIVE (NEGATIVE); INFLUENZA B AMPLIFICATION NEGATIVE (NEGATIVE)
[2019-06-08] MEDS ORDERED: CEFEPIME HCL 2 GM in D5W MINI-BAG PLUS 50 ML IV SCH (17:00)
[2019-06-08] MEDS ORDERED: VITA50005 PO (17:11)
[2019-06-08] MEDS ORDERED: ASPI81TA85 PO (17:11)
[2019-06-08] MEDS ORDERED: ACET-683 PO (17:11)
[2019-06-08] MEDS ORDERED: COQ1200C3 PO (17:11)
[2019-06-08] MEDS ORDERED: CYCL10TA PO (17:11)
[2019-06-08] MEDS ORDERED: D 101000 PO (17:11)
--- NOTE | 2019-06-08 17:17 | HPEPDOC ---
[facility] Medical History & Physical Date of Admission Jun 08, 2019 Date of Service: Jun 08, 2019 Attending Physician: MARYANNE VELAZQUEZ MD History and Physical CHIEF COMPLAINT: Dyspnea, back pain HISTORY OF PRESENT ILLNESS: 78-year-old female with past medical history of diabetes, hyperlipidemia, chronic back pain due to spinal stenosis presents to the emergency room for worsening back pain radiating to her abdomen on the right side. He reports pain started about 4-5 days ago, no inciting factors, no alleviating or aggravating factors. Patient has been taking jvsh-pmj-boorxmo pain medication for about 2 years now since her issue began with the spinal stenosis. She reportedly takes Tylenol and ibuprofen, doesn't know how much of each, but takes 3 tabs of pain medication 3 times a day; she has been doing that for almost 2 years now. She reports her pain was at baseline up until 4 days ago when this started. She also reports associated dyspnea along with fatigue and malaise. She has polyuria at baseline, is incontinent, uses depends. She denies any change to her urinary habits. In the ED, she is found to have acute obstructive uropathy with a 12 mm stone in the proximal ureter causing moderate hydronephrosis in the right kidney along with elevated creatinine of 2.3. She denies any chest pain, vomiting or diarrhea. 10 point review of system was negative except for above PAST MEDICAL HISTORY: 1. Diabetes mellitus. 2. , Hyperlipidemia. 3. Spinal stenosis. PAST SURGICAL HISTORY: 1. Tubal ligation. 2. Left hip replacement. SOCIAL HISTORY: Ex-smoker, smoked 0.5-1 pack per day for over 30 years. Rarely drank alcohol, none for many years FAMILY HISTORY: Father with severe heart disease Mother with brain cancer ALLERGIES: Please see below. HOME MEDICATIONS: Please see below. PHYSICAL EXAMINATION: VITAL SIGNS: Please see below. GENERAL: No distress HEENT: Normocephalic, atraumatic, moist mucous membranes NECK: Supple CARDIOVASCULAR EXAMINATION: S1, S2, no murmurs RESPIRATORY EXAMINATION: Diminished, poor air movement, distant, scattered wheezing appreciated ABDOMINAL EXAMINATION: Soft, mild tenderness to palpation, nondistended, positive bowel sounds EXTREMITIES: Range of motion intact, trace lower extremity edema bilaterally SKIN: No rash NEUROLOGICAL EXAMINATION: Alert and oriented 3, no focal deficits PSYCHIATRIC EXAMINATION: Calm and cooperative LABORATORY DATA: See below. IMAGING: CT abdomen with acute obstructive uropathy, 12 mm stone in the proximal ureter causing moderate hydronephrosis of the right kidney. MICROBIOLOGY: Please see below. ASSESSMENT: 78-year-old female with past. No history of diabetes and chronic back pain who takes Tylenol and ibuprofen [id number]-gsw-lutiurc, presents with acutely worsening back pain radiating to the right flank, found to have acute obstructive uropathy and acute renal failure. . PLAN: 1. Acute renal failure. Likely multifactorial from acute obstructive uropathy, Tylenol use, poor by mouth intake, medications Continue IV hydration with normal saline 125 mL per hour. Urine studies ordered. Obstructive uropathy: Urology consulted Dr. French. 2. UTI UA concerning, patient incontinent at baseline, wears depends. Urine and blood cultures pending. Start cefepime 3. Diabetes mellitus. Hold metformin, slightly slow insulin with finger sticks every before meals and at bedtime 4. Hyperlipidemia. Continue pravastatin. Patient likely has undiagnosed COPD, given history of smoking and current clinical examination, reports having a rescue inhaler at home. Based on current clinical examination will start patient on IV steroids, DuoNeb's and supplemental oxygen as needed to maintain O2 sats of 90%. DVT prophylaxis: Subcutaneous heparin. GI prophylaxis: Not needed Vital Signs Vital Signs Date Time Temp Pulse Resp B/P (MAP) Pulse Ox O2 Delivery O2 Flow Rate FiO2 06/08/19 16:30 103 135/63 (87) 06/08/19 16:15 93 06/08/19 16:00 Room Air 06/08/19 15:55 22 06/08/19 13:23 98.5 Laboratory Data Labs 24H Laboratory Tests 2 06/08/19 14:03: Nucleated Red Blood Cells % (auto) 0.0, Neutrophils 74H, Band Neutrophils 4, Lymphocytes (Manual) 11L, Monocytes (Manual) 5, Eosinophils (Manual) 4H, Atypical Lymphocytes 2, Platelet Estimate NORMAL, Anion Gap 7L, Glomerular Filtration Rate 20.8L, Calcium Level 8.8, Total Bilirubin 0.5, Direct Bilirubin 0.2, Aspartate Amino Transf (AST/SGOT) 20, Alanine Aminotransferase (ALT/SGPT) 22, Alkaline Phosphatase 113, Total Creatine Kinase 66, Creatine Kinase MB 1.5, Creatine Kinase MB Relative Index 2.27, Troponin I < 0.02, Total Protein 6.8, Albumin 2.6L, Albumin/Globulin Ratio 0.62L 06/08/19 14:06: Prothrombin Time 15.2H, Prothromb Time International Ratio 1.23, Urine Color YE LLOW, Urine Appearance CLOUDYH, Urine pH 5.0, Urine Specific [place] 1.017, Urine Protein 2+H, Urine Glucose (UA) NEGATIVE, Urine Ketones NEGATIVE, Urine Blood 3+H, Urine Nitrite NEGATIVE, Urine Bilirubin NEGATIVE, Urine Urobilinogen 0.2, Urine Leukocyte Esterase 2+H, Urine WBC (Auto) 159H, Urine RBC (Auto) 152H, Urine Hyaline Casts (Auto) 0, Urine Bacteria (Auto) 2+H, Urine Squamous Epithelial Cells 1, Urine Amorphous Sediment SMALLH, Urine Sperm (Auto) , Lactic Acid Level 1.8 06/08/19 15:42: Blood Gas Bicarbonate Standard 22.6, Arterial Blood pH 7.419, Arterial Blood Pa rtial Pressure CO2 34.2L, Arterial Blood Partial Pressure O2 68.6L, Arterial Blood Total CO2 22.7L, Arterial Blood HCO3 21.6L, Arterial Blood Base Excess - 2.2L, Arterial Blood Oxygen Saturation 94.1L 06/08/19 15:59: Influenza Type A (RT-PCR) NEGATIVE, Influenza Type B (RT-PCR) NEGATIVE CBC/BMP Laboratory Tests 06/08/19 14:03 Microbiology Microbiology 06/08/19 Blood Culture, Received Pending 06/08/19 Urine Culture, Received Pending 06/08/19 Blood Culture, Received Pending Home Medications Scheduled Cholecalciferol (Vitamin D3) 2,000 Unit Tab, 50,000 UNIT PO QWEEK WEDNESDAY Duloxetine Hcl (Duloxetine HCl) 60 Mg Cap, 60 MG PO DAILY Metformin HCl (Metformin HCl) 500 Mg Tab, 500 MG PO BID Pravastatin Sodium (Pravachol) 80 Mg Tab, 80 MG PO QHS Scheduled PRN Acetaminophen (Tylenol) 500 Mg/15 Ml Liq, 650 MG PO Q4HP PRN for PAIN OR FEVER Cyclobenzaprine HCl (Cyclobenzaprine HCl) 5 Mg Tablet, 5 MG PO for PAIN Allergies Coded Allergies: No Known Allergies (Unverified , 06/01/17) A-FIB/CHADSVASC A-FIB History Current/History of A-Fib/PAF?: No MARYANNE VELAZQUEZ MD Jun 08, 2019 17:17
[2019-06-08] MEDS ORDERED: CEFEPIME HCL 1 GM in D5W MINI-BAG PLUS 50 ML IV SCH (19:00)
--- NOTE | 2019-06-08 19:14 | CR.PDOC ---
General Date of Consultation: Jun 08, 2019 Consultation REASON FOR CONSULTATION/CHIEF COMPLAINT: Right ureteral calculus HISTORY OF PRESENT ILLNESS: 78-year-old female with a 5 day history of right lower quadrant abdominal pain and right flank pain. Patient describes the pain as severe. She denies nausea or vomiting. She denies fever or chills. She denies a history of stone disease. She denies dysuria. She denies gross hematuria. She does report a history of urinary tract infections in the past. CT scan was reviewed and patient had a 12 mm right proximal ureteral stone with hydronephrosis. 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 ALLERGIES: Please see below. HOME MEDICATIONS: Please see below. PAST MEDICAL HISTORY: 1. Diabetes mellitus. 2. COPD. 3. Spinal stenosis PAST SURGICAL HISTORY: 1. Left hip replacement 2. Tubal ligation SOCIAL HISTORY: Tobacco use: Nonsmoker REVIEW OF SYSTEMS: CONSTITUTIONAL: Denies recent weight loss. HEENT: Denies headache. CARDIOVASCULAR: Denies chest pain. RESPIRATORY: Denies shortness of breath. GENITOURINARY: See HPI. MUSCULOSKELETAL: Denies joint pain. GASTROINTESTINAL: Denies nausea or vomiting, diarrhea. SKIN: Denies rashes. NEUROLOGICAL: Denies neurological symptoms. ENDOCRINE: History diabetes. HEMATOLOGIC/LYMPHATIC: Denies bleeding disorders. PHYSICAL EXAMINATION: VITAL SIGNS: Please see below. GENERAL APPEARANCE: Patient is lying comfortably on a stretcher in no apparent distress. HEENT: Unremarkable. RESPIRATORY: No respiratory distress. CARDIOVASCULAR: Minimal peripheral edema. ABDOMEN: Obese nontender with no CVA tenderness. LABORATORY DATA: Please see below. WBC 12.2 Creatinine 2.4 Urinalysis positive for pyuria ASSESSMENT/PLAN: 1. Patient likely has a urinary tract infection with a large right proximal ureteral stone. 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 Patient has an elevated creatinine which may be secondary to dehydration and her urinary tract infection as well as her obstructed right kidney. Patient is currently afebrile and does not appear to be septic. Suggest IV hydration with IV antibiotics. Patient will be reassessed in the morning for possible right stent placement. Vital Signs/I&O Vital Signs Date Time Temp Pulse Resp B/P (MAP) Pulse Ox O2 Delivery O2 Flow Rate FiO2 06/08/19 17:15 99 134/93 (107) 94 Room Air 06/08/19 15:55 22 06/08/19 13:23 98.5 Laboratory Data Labs 24H Laboratory Tests 2 06/08/19 14:03: Nucleated Red Blood Cells % (auto) 0.0, Neutrophils 74H, Band Neutrophils 4, Lymphocytes (Manual) 11L, Monocytes (Manual) 5, Eosinophils (Manual) 4H, Atypical Lymphocytes 2, Platelet Estimate NORMAL, Anion Gap 7L, Glomerular Filtration Rate 20.8L, Calcium Level 8.8, Total Bilirubin 0.5, Direct Bilirubin 0.2, Aspartate Amino Transf (AST/SGOT) 20, Alanine Aminotransferase (ALT/SGPT) 22, Alkaline Phosphatase 113, Total Creatine Kinase 66, Creatine Kinase MB 1.5, Creatine Kinase MB Relative Index 2.27, Troponin I < 0.02, Total Protein 6.8, Albumin 2.6L, Albumin/Globulin Ratio 0.62L 06/08/19 14:06: Prothrombin Time 15.2H, Prothromb Time International Ratio 1.23, Urine Color YELLOW, Urine Appearance CLOUDYH, Urine pH 5.0, Urine Specific [place] 1.017, Urine Protein 2+H, Urine Glucose (UA) NEGATIVE, Urine Ketones NEGATIVE, Urine Blood 3+H, Urine Nitrite NEGATIVE, Urine Bilirubin NEGATIVE, Urine Urobilinogen 0.2, Urine Leukocyte Esterase 2+H, Urine WBC (Auto) 159H, Urine RBC (Auto) 152H, Urine Hyaline Casts (Auto) 0, Urine Bacteria (Auto) 2+H, Urine Squamous Epithelial Cells 1, Urine Amorphous Sediment SMALLH, Urine Sperm (Auto) , Lactic Acid Level 1.8 06/08/19 15:42: Blood Gas Bicarbonate Standard 22.6, Arterial Blood pH 7.419, Arterial Blood Partial Pressure CO2 34.2L, Arterial Blood Partial Pressure O2 68.6L, Arterial Blood Total CO2 22.7L, Arterial Blood HCO3 21.6L, Arterial Blood Base Excess - 2.2L, Arterial Blood Oxygen Saturation 94.1L 06/08/19 15:59: Influenza Type A (RT-PCR) NEGATIVE, Influenza Type B (RT-PCR) NEGATIVE 06/08/19 18:34: Bedside Glucose (Misc Panel) 161H CBC/BMP Laboratory Tests 06/08/19 14:03 Microbiology Microbiology 06/08/19 Blood Culture, Received Pending 06/08/19 Urine Culture, Received Pending 06/08/19 Blood Culture, Received Pending Allergies Coded Allergies: No Known Allergies (Unverified , 06/01/17) Home Medications Scheduled Aspirin (Aspir 81) 81 Mg Tablet.dr, 81 MG PO DAILY, (Reported) Cholecalciferol (Vitamin D3) (Vitamin D3) 1,000 Unit Capsule, 1,000 UNIT PO DAILY, (Reported) Duloxetine Hcl (Duloxetine HCl) 60 Mg Cap, 60 MG PO DAILY, (Reported) Ergocalciferol (Vitamin D2) (Vitamin D2) 50,000 Unit Capsule, 50,000 UNIT PO 1XWK, (Reported) Wednesday Metformin HCl (Metformin HCl) 500 Mg Tab, 500 MG PO BID, (Reported) TOLD BY PCP TO STOP TAKING Pravastatin Sodium (Pravachol) 80 Mg Tab, 80 MG PO QHS, (Reported) Ubidecarenone (Co Q10) 200 Mg Capsule, 200 MG PO DAILY, (Reported) Scheduled PRN Acetaminophen (Acetaminophen) 500 Mg Tablet, 1,500 MG PO Q8H PRN for PAIN, (Reported) Cyclobenzaprine HCl (Cyclobenzaprine HCl) 10 Mg Tablet, 10 MG PO BID PRN for MUSCLE SPASMS, (Reported) Priyank French MD Jun 08, 2019 19:14
[2019-06-08] MEDS: CEFEPIME HCL 2 GM in D5W MINI-BAG PLUS 50 ML IV SCH (19:15)
[2019-06-08] MEDS ORDERED: DEXTROSE 50% 50 ML SYRINGE IV PRN (20:15)
[2019-06-08] MEDS ORDERED: GLUCAGON FOR INJ 1 MG VIAL (J1610) SC PRN (20:15)
[2019-06-08] MEDS ORDERED: GLUCOSE 4 GM CHEW TABLET PO PRN (20:15)
[2019-06-08] MEDS: IPRATROPIUM 0.5MG/ALBUTEROL 2.5MG INH SOL UD 3ML (DUONEB)(J7620) NEB SCH (20:36)
[2019-06-08] MEDS: MORPHINE 4 MG/ML 1ML VIAL/SYRINGE (J2270) IV PRN (20:55)
[2019-06-08] MEDS ORDERED: HumaLOG INSULIN (NovoLOG) PER UNIT SC SCH (21:00)
[2019-06-08 21:20] VITALS: BP 165/79
--- NOTE | 2019-06-08 21:58 | REP ---
Portable chest x-ray: Single view. History: Dyspnea and cough. Comparison study: June 01, 2017. Findings: Monitoring electrodes are seen. The lungs are well inflated and clear. There is a granulomatous calcification in the left base and there appear to be granulomas calcific residuals in the infrahilar region on the right. These are unchanged from the 2014 prior study. No new infiltrate is seen. Pleural angles are sharp. Impression: Old granulomatous calcifications. No acute disease. Electronically Signed by Narinder Briones MD 06/09/2019 07:48 A
[2019-06-08] MEDS: HEPARIN SOD (PORCINE) 5000 UNITS/ML VIAL SC SCH (22:50)
[2019-06-09] MEDS: methylPREDNISolone INJ 40 MG/1 ML VIAL (J2920) IV SCH ×2 (00:04→08:01)
[2019-06-09] MEDS: IPRATROPIUM 0.5MG/ALBUTEROL 2.5MG INH SOL UD 3ML (DUONEB)(J7620) NEB SCH ×4 (02:06→20:00)
[2019-06-09 06:00] VITALS: BP 137/67
[2019-06-09] MEDS: HEPARIN SOD (PORCINE) 5000 UNITS/ML VIAL SC SCH ×3 (06:07→21:19)
[2019-06-09] MEDS: HumaLOG INSULIN (NovoLOG) PER UNIT SC SCH ×4 (06:07→22:50)
[2019-06-09 06:38] LABS: HEMATOCRIT 33.6 % (36.0-47.0); HEMOGLOBIN 10.9 g/dl (12.0-15.5); MEAN CORPUSCULAR HEMOGLOBIN 29.7 pg (27.0-33.0); MEAN CORPUSCULAR HGB CONC 32.4 g/dl (32.0-36.5); MEAN CORPUSCULAR VOLUME 91.6 fl (80.0-96.0); PLATELET COUNT, AUTOMATED 206 10^3/uL (150-450); RED BLOOD COUNT 3.67 10^6/uL (4.00-5.40); WHITE BLOOD COUNT 7.9 10^3/uL (4.0-10.0)
[2019-06-09 07:12] LABS: ALBUMIN 2.2 GM/DL (3.2-5.2); BILIRUBIN,TOTAL 0.6 MG/DL (0.2-1.0); CALCIUM LEVEL 8.5 MG/DL (8.8-10.2); CREATININE FOR GFR 2.23 MG/DL (0.55-1.30); GLOMERULAR FILTRATION RATE 22.7 (>39); MAGNESIUM LEVEL 2.1 MG/DL (1.8-2.4); POTASSIUM SERUM 4.3 MEQ/L (3.5-5.1); TOTAL PROTEIN 7.1 GM/DL (6.4-8.2)
[2019-06-09] MEDS ORDERED: HumaLOG INSULIN (NovoLOG) PER UNIT SC SCH (07:30)
--- NOTE | 2019-06-09 07:33 | IPNPDOC ---
Date Seen The patient was seen on 06/09/19. Progress Note SUBJECTIVE: Patient without complaints. Denies pain or colic. OBJECTIVE PHYSICAL EXAMINATION: Abdomen: soft non tender, no CVA-tenderness LABORATORY DATA, IMAGING STUDIES, MICROBIOLOGY: Please see below. WBC 7.9 creatinine 2.23 ASSESSMENT AND PLAN: Patient with large right proximal ureteral stone. Pain under control, creatinine remains elevated from baseline. Will schedule for right double J stent. Please clear patient medically for procedure. Informed consent obtained. Material risks and complications discussed. VS, I&O, 24H, Fishbone Vital Signs/I&O Vital Signs Date Time Temp Pulse Resp B/P (MAP) Pulse Ox O2 Delivery O2 Flow Rate FiO2 06/09/19 06:00 96.8 77 18 137/67 (90) 98 Room Air I&O- Last 24 Hours up to 6 AM 06/09/19 06:00 Intake Total 510 ml Output Total 500 ml Balance 10 ml Laboratory Data 24H LABS Laboratory Tests 2 06/08/19 14:03: Nucleated Red Blood Cells % (auto) 0.0, Neutrophils 74H, Band Neutrophils 4, Lymphocytes (Manual) 11L, Monocytes (Manual) 5, Eosinophils (Manual) 4H, Atypical Lymphocytes 2, Platelet Estimate NORMAL, Anion Gap 7L, Glomerular Filtration Rate 20.8L, Calcium Level 8.8, Total Bilirubin 0.5, Direct Bilirubin 0.2, Aspartate Amino Transf (AST/SGOT) 20, Alanine Aminotransferase (ALT/SGPT) 22, Alkaline Phosphatase 113, Total Creatine Kinase 66, Creatine Kinase MB 1.5, Creatine Kinase MB Relative Index 2.27, Troponin I < 0.02, Total Protein 6.8, Albumin 2.6L, Albumin/Globulin Ratio 0.62L 06/08/19 14:06: Prothrombin Time 15.2H, Prothromb Time International Ratio 1.23, Urine Color YELLOW, Urine Appearance CLOUDYH, Urine pH 5.0, Urine Specific [place] 1.017, Urine Protein 2+H, Urine Glucose (UA) NEGATIVE, Urine Ketones NEGATIVE, Urine Blood 3+H, Urine Nitrite NEGATIVE, Urine Bilirubin NEGATIVE, Urine Urobilinogen 0.2, Urine Leukocyte Esterase 2+H, Urine WBC (Auto) 159H, Urine RBC (Auto) 152H, Urine Hyaline Casts (Auto) 0, Urine Bacteria (Auto) 2+H, Urine Squamous Epithelial Cells 1, Urine Amorphous Sediment SMALLH, Urine Sperm (Auto) , Lactic Acid Level 1.8 06/08/19 15:42: Blood Gas Bicarbonate Standard 22.6, Arterial Blood pH 7.419, Arterial Blood Partial Pressure CO2 34.2L, Arterial Blood Partial Pressure O2 68.6L, Arterial Blood Total CO2 22.7L, Arterial Blood HCO3 21.6L, Arterial Blood Base Excess - 2.2L, Arterial Blood Oxygen Saturation 94.1L 06/08/19 15:59: Influenza Type A (RT-PCR) NEGATIVE, Influenza Type B (RT-PCR) NEGATIVE 06/08/19 18:34: Bedside Glucose (Misc Panel) 161H 06/08/19 21:37: Bedside Glucose (Misc Panel) 258H 06/09/19 05:49: Bedside Glucose (Misc Panel) 234H 06/09/19 05:58: Nucleated Red Blood Cells % (auto) 0.0, Anion Gap 7L, Glomerular Filtration Rate 22.7L, Calcium Level 8.5L, Magnesium Level 2.1, Total Bilirubin 0.6, Aspartate Amino Transf (AST/SGOT) 14, Alanine Aminotransferase (ALT/SGPT) 18, Alkaline Phosphatase 95, Total Protein 7.1, Albumin 2.2L, Albumin/Globulin Ratio 0.45L CBC/BMP Laboratory Tests 06/08/19 14:03 06/09/19 05:58 Microbiology Microbiology 06/08/19 Blood Culture, Received Pending 06/08/19 Urine Culture, Received Pending 06/08/19 Blood Culture, Received Pending Priyank French MD Jun 09, 2019 07:33
[2019-06-09] MEDS: NS 1,000 ML IV SCH ×3 (09:25→21:19)
--- NOTE | 2019-06-09 12:29 | IPNPDOC ---
Date Seen The patient was seen on 06/09/19. Progress Note HISTORY OF PRESENT ILLNESS: 78-year-old female with past medical history of diabetes, hyperlipidemia, chronic back pain due to spinal stenosis presents to the emergency room for worsening back pain radiating to her abdomen on the right side. He reports pain started about 4-5 days ago, no inciting factors, no alleviating or aggravating factors. Patient has been taking iels-udi-nagcait pain medication for about 2 years now since her issue began with the spinal stenosis. She reportedly takes Tylenol and ibuprofen, doesn't know how much of each, but takes 3 tabs of pain medication 3 times a day; she has been doing that for almost 2 years now. She reports her pain was at baseline up until 4 days ago when this started. She also reports associated dyspnea along with fatigue and malaise. She has polyuria at baseline, is incontinent, uses depends. She denies any change to her urinary habits. In the ED, she is found to have acute obstructive uropathy with a 12 mm stone in the proximal ureter causing moderate hydronephrosis in the right kidney along with elevated creatinine of 2.3. She denies any chest pain, vomiting or diarrhea. 06/09/2019 Patient reports significant improvement in dyspnea and pain, currently without any complaints. Patient denies any history of [place] or significant cardiac disease, has never had a stress test in the past, can't recall if ever had an echocardiogram in the past. She denies any shortness of breath, chest pain, vomiting, diarrhea or constipation at this time. Long discussion with family and patient regarding risks and benefits of the procedure along with postop complications, especially cardiac; explained to the patient and family that she is out of her to high risk for this procedure due to her medical history and current physical condition. Patient and family understand and are willing to proceed with the procedure. 10 point review of system was negative except for above PHYSICAL EXAMINATION: VITAL SIGNS: Please see below. GENERAL: No distress HEENT: Normocephalic, atraumatic, moist mucous membranes NECK: Supple CARDIOVASCULAR EXAMINATION: S1, S2, no murmurs RESPIRATORY EXAMINATION: Clear to auscultation, no wheezing ABDOMINAL EXAMINATION: Soft, mild tenderness to palpation of right flank, nondistended, positive bowel sounds EXTREMITIES: Range of motion intact, trace lower extremity edema bilaterally SKIN: No rash NEUROLOGICAL EXAMINATION: Alert and oriented 3, no focal deficits PSYCHIATRIC EXAMINATION: Calm and cooperative LABORATORY DATA: See below. IMAGING: CT abdomen with acute obstructive uropathy, 12 mm stone in the proximal ureter causing moderate hydronephrosis of the right kidney. MICROBIOLOGY: Please see below. ASSESSMENT: 78-year-old female with past. No history of diabetes and chronic back pain who takes Tylenol and ibuprofen [id number]-[id number], presents with acutely worsening back pain radiating to the right flank, found to have acute obstructive uropathy and acute renal failure. . PLAN: 1. Acute renal failure. Likely multifactorial from acute obstructive uropathy, Motrin use, poor by mouth intake, medications Continue IV hydration with normal saline 125 mL per hour. Urology evaluation appreciated, plan for double-J stent placement today, preop workup including BNP, EKG, and TTE ordered. BNP elevated, EKG without acute abnormalities, discussed echocardiogram results with caregivers non medical, normal EF, grade 1 diastolic dysfunction, no valvular abnormalities. No wall motion abnormalities were noted. Patient is at moderate risk for this intermediate risk procedure for postoperative complications, will check EKG in PACU and daily troponins for the next 3 days. Patient and family aware of risks and benefits of the procedure and are willing to proceed. 2. UTI UA concerning, patient incontinent at baseline, wears depends. Urine and blood cultures pending. Continue cefepime 3. Diabetes mellitus. Hold metformin, sliding scale insulin with finger sticks every before meals and at bedtime 4. Hyperlipidemia. Continue pravastatin. DVT prophylaxis: Subcutaneous heparin. GI prophylaxis: Not needed VS, I&O, 24H, Fishbone Vital Signs/I&O Vital Signs Date Time Temp Pulse Resp B/P (MAP) Pulse Ox O2 Delivery O2 Flow Rate FiO2 06/09/19 06:00 96.8 77 18 137/67 (90) 98 Room Air I&O- Last 24 Hours up to 6 AM 06/09/19 05:59 Intake Total 510 ml Output Total 500 ml Balance 10 ml Laboratory Data 24H LABS Laboratory Tests 2 06/08/19 14:03: Nucleated Red Blood Cells % (auto) 0.0, Neutrophils 74H, Band Neutrophils 4, Lym phocytes (Manual) 11L, Monocytes (Manual) 5, Eosinophils (Manual) 4H, Atypical Lymphocytes 2, Platelet Estimate NORMAL, Anion Gap 7L, Glomerular Filtration Rate 20.8L, Calcium Level 8.8, Total Bilirubin 0.5, Direct Bilirubin 0.2, Aspartate Amino Transf (AST/SGOT) 20, Alanine Aminotransferase (ALT/SGPT) 22, Alkaline Phosphatase 113, Total Creatine Kinase 66, Creatine Kinase MB 1.5, Creatine Kinase MB Relative Index 2.27, Troponin I < 0.02, Total Protein 6.8, Albumin 2.6L, Albumin/Globulin Ratio 0.62L 06/08/19 14:06: Prothrombin Time 15.2H, Prothromb Time International Ratio 1.23, Urine Color YELLOW, Urine Appearance CLOUDYH, Urine pH 5.0, Urine Specific [place] 1.017, Ur ine Protein 2+H, Urine Glucose (UA) NEGATIVE, Urine Ketones NEGATIVE, Urine Blood 3+H, Urine Nitrite NEGATIVE, Urine Bilirubin NEGATIVE, Urine Urobilinogen 0.2, Urine Leukocyte Esterase 2+H, Urine WBC (Auto) 159H, Urine RBC (Auto) 152H, Urine Hyaline Casts (Auto) 0, Urine Bacteria (Auto) 2+H, Urine Squamous Epithelial Cells 1, Urine Amorphous Sediment SMALLH, Urine Sperm (Auto) , Lactic Acid Level 1.8 06/08/19 15:42: Blood Gas Bicarbonate Standard 22.6, Arterial Blood pH 7.419, Arterial Blood Partial Pressure CO2 34.2L, Arterial Blood Partial Pressure O2 68.6L, Arterial B lood Total CO2 22.7L, Arterial Blood HCO3 21.6L, Arterial Blood Base Excess - 2.2L, Arterial Blood Oxygen Saturation 94.1L 06/08/19 15:59: Influenza Type A (RT-PCR) NEGATIVE, Influenza Type B (RT-PCR) NEGATIVE 06/08/19 18:34: Bedside Glucose (Misc Panel) 161H 06/08/19 21:37: Bedside Glucose (Misc Panel) 258H 06/09/19 05:49: Bedside Glucose (Misc Panel) 234H 06/09/19 05:58: Nucleated Red Blood Cells % (auto) 0.0, Anion Gap 7L, Glomerular Filtration Rate 22.7L, Calcium Level 8.5L, Magnesium Level 2.1, Total Bilirubin 0.6, Aspartate Amino Transf (AST/SGOT) 14, Alanine Aminotransferase (ALT/SGPT) 18, Alkaline Phosphatase 95, VI-Atu-H-Type Natriuretic Peptide 967H, Total Protein 7.1, Albumin 2.2L, Albumin/Globulin Ratio 0.45L 06/09/19 11:23: Bedside Glucose (Misc Panel) 203H CBC/BMP Laboratory Tests 06/08/19 14:03 06/09/19 05:58 Microbiology Microbiology 06/08/19 Blood Culture, Received Pending 06/08/19 Urine Culture, Received Pending 06/08/19 Blood Culture, Received Pending MARYANNE VELAZQUEZ MD Jun 09, 2019 12:29
[2019-06-09] MEDS ORDERED: PROPOFOL 200 MG/20 ML VIAL As Ordered ONE ×2 (12:42→14:30)
[2019-06-09] MEDS ORDERED: ONDANSETRON 4MG/2ML VIAL (J2405) As Ordered ONE (12:42)
[2019-06-09] MEDS ORDERED: LIDOCAINE 2% INJ 100 MG/5 ML SDV (FOR ANES.) As Ordered ONE (12:42)
[2019-06-09] MEDS ORDERED: fentaNYL 100 MCG/2 ML INJECTION (J3010) As Ordered ONE (12:43)
--- NOTE | 2019-06-09 12:49 | ECGEPIP ---
[facility] Test Date: 2019-06-09 Pat Name: CANDIE CHIANG Department: Room: [place] [address] Gender: Female [facility] Manager: KERRY : 1940 Requested By: MARYANNE Arevalo Order Number: [id number] Reading MD: Halie Candelaria Measurements Intervals [place] Rate: 85 P: 42 SD: 139 QRS: 23 QRSD: 102 T: 15 QT: 342 QTc: 407 Interpretive Statements SINUS RHYTHM NONSPECIFIC T-WAVE ABNORMALITY SIMILAR TO 06/08/19 Electronically Signed on 06-09-2019 12:49:22 EDT by Halie Candelaria
[2019-06-09 13:20] VITALS: BP 133/65
[2019-06-09] MEDS ORDERED: CONRAY-60 60% 50ML VIAL (Q9961) As Ordered ONE (13:31)
[2019-06-09] MEDS ORDERED: KETAMINE HCL 200 MG/20 ML VIAL As Ordered ONE (14:19)
--- NOTE | 2019-06-09 14:49 | ROOPDOC ---
[facility] Report Of Operation Report of Operation DATE OF PROCEDURE: 06/09/19 PREPROCEDURE DIAGNOSES: Right ureteral calculus. POSTPROCEDURE DIAGNOSES: Same, right pyelonephritis. PROCEDURE: Cystoscopy, right retrograde pyelogram, right double-J stent. SURGEON: Priyank French MD ANESTHESIA: MAC. ESTIMATED BLOOD LOSS: Approximately less than 20 mL. COMPLICATIONS: None. REMARKS: Drains: 6 Turkmen double-J stent, right renal urine culture. PROCEDURE NOTE: Patient was brought to the operating room and following administration of IV sedation was placed in the dorsal lithotomy position prepped and draped in usual sterile fashion. A 22 Turkmen cystoscope was inserted. Bladder showed evidence of cystitis. The right ureteral orifice was normal. A 0.038 guidewire was inserted into right ureteral orifice. A open-ended catheter was inserted over the wire to the mid ureter. The wires removed and retrograde pyelogram was performed. An obstructing stone was present in the proximal ureter and no dye could be seen proximal to the stone. The right kidney was ptotic. The wire was inserted into the catheter and manipulated beyond the stone into the renal pelvis. The open-ended catheter was advanced to the renal pelvis and the wire was removed. A purulent hydronephrotic drip was present. Urine was obtained for culture. Retrograde pyelogram was performed confirming a hydronephrotic ptotic kidney. The wire was replaced and the open-ended catheter was removed. A 6 Turkmen double-J stent was inserted under direct vision using fluoroscopy guidance. Once good position was confirmed the wires removed leaving the stent in place. Cystoscope was removed. A 16 Turkmen Gomes catheter was placed. Patient tolerated procedure well returned to recovery room in [employer] condition. Priyank French MD Jun 09, 2019 14:49
[2019-06-09] MEDS ORDERED: LR 1,000 ML IV SCH (15:00)
[2019-06-09] MEDS ORDERED: ONDANSETRON 4MG/2ML VIAL (J2405) IV PRN (15:00)
[2019-06-09] MEDS ORDERED: fentaNYL 100 MCG/2 ML INJECTION (J3010) IV PRN (15:00)
--- NOTE | 2019-06-09 15:13 | REP ---
Retrograde pyelogram: History: Cystoscopy, right stent. Fluoroscopy time is 81 seconds. Findings: A single last image hold fluoroscopically obtained spot radiograph of the abdomen shows an irregular area of contrast injection associated with the ureteral cannulation. No laterality markers are visible. Electronically Signed by Narinder Briones MD 06/09/2019 07:46 P
[2019-06-09 15:30] VITALS: BP 145/68
[2019-06-09] MEDS: MORPHINE 4 MG/ML 1ML VIAL/SYRINGE (J2270) IV PRN (16:11)
--- NOTE | 2019-06-09 17:18 | ECHO ---
DATE OF PROCEDURE: 06/09/2019 REFERRING PHYSICIAN: Sabrina Garrison MD INDICATION: Dyspnea. HEIGHT: 66 inches WEIGHT: 111 kg 2D MEASUREMENTS: Left atrium: 4.5 cm Aortic root: 2.8 cm Ventricular septum: 1.12 cm Posterior wall: 1.09 cm Left ventricle diastole: 5.0 cm Inferior vena cava: 2.2 cm DOPPLER MEASUREMENTS: Aortic valve velocity: 182 cm/s LVOT velocity: 113 cm/s LVOT VTI: 27.0 cm Mitral E velocity: 73.5 cm/s Mitral A velocity: 110 cm/s Mitral deceleration time: 197 ms Very mild tricuspid regurgitation. Estimated right ventricle systolic pressure 33 - 38 mmHg assuming a right atrial pressure of 5 - 10 mmHg. Pulmonary acceleration time 148 ms. MITRAL ANNULAR TISSUE DOPPLER: E prime septal: 5.55 cm/s E prime lateral: 9.46 cm/s DESCRIPTION: Rhythm was sinus. Image quality was fair. No pericardial effusion. This is a 2D, M-mode, color flow Doppler and pulse wave Doppler examination that included mitral annular tissue Doppler. CONCLUSIONS: 1. Normal left ventricle internal dimensions and wall thickness. Normal regional left ventricle (LV) wall motion and wall thickening. Normal LV systolic function. Left ventricular ejection fraction (LVEF) 60% by visual estimate. Grade 1 LV diastolic dysfunction. 2. Mild left atrial dilatation. 3. Suggestive of mild elevation of estimated right ventricle systolic pressure. Normal right ventricle size and systolic function. 4. Otherwise normal appearing echocardiogram Doppler findings.
[2019-06-09] MEDS: CEFEPIME HCL 2 GM in D5W MINI-BAG PLUS 50 ML IV SCH (17:48)
--- NOTE | 2019-06-09 19:34 | ECGEPIP ---
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
[2019-06-09 22:00] VITALS: BP 168/74
[2019-06-10] MEDS: IPRATROPIUM 0.5MG/ALBUTEROL 2.5MG INH SOL UD 3ML (DUONEB)(J7620) NEB SCH ×4 (01:30→19:32)
[2019-06-10 06:00] VITALS: BP 176/73
[2019-06-10] MEDS: HEPARIN SOD (PORCINE) 5000 UNITS/ML VIAL SC SCH ×3 (06:52→21:32)
--- NOTE | 2019-06-10 06:56 | ECGEPIP ---
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
[2019-06-10 07:23] LABS: HEMATOCRIT 32.1 % (36.0-47.0); HEMOGLOBIN 10.2 g/dl (12.0-15.5); MEAN CORPUSCULAR HEMOGLOBIN 29.7 pg (27.0-33.0); MEAN CORPUSCULAR HGB CONC 31.8 g/dl (32.0-36.5); MEAN CORPUSCULAR VOLUME 93.3 fl (80.0-96.0); PLATELET COUNT, AUTOMATED 201 10^3/uL (150-450); RED BLOOD COUNT 3.44 10^6/uL (4.00-5.40); WHITE BLOOD COUNT 7.9 10^3/uL (4.0-10.0)
[2019-06-10 08:05] LABS: ALBUMIN 2.1 GM/DL (3.2-5.2); ALT/SGPT 22 U/L (12-78); BILIRUBIN,TOTAL 0.2 MG/DL (0.2-1.0); BLOOD UREA NITROGEN 66 MG/DL (7-18); CALCIUM LEVEL 8.3 MG/DL (8.8-10.2); CARBON DIOXIDE LEVEL 20 MEQ/L (21-32); CHLORIDE LEVEL 108 MEQ/L (98-107); CREATININE FOR GFR 2.13 MG/DL (0.55-1.30); GLUCOSE, FASTING 204 MG/DL (70-100); MAGNESIUM LEVEL 2.4 MG/DL (1.8-2.4); PHOSPHORUS LEVEL 3.8 MG/DL (2.5-4.9); POTASSIUM SERUM 4.4 MEQ/L (3.5-5.1); SODIUM LEVEL 136 MEQ/L (136-145); TOTAL PROTEIN 6.6 GM/DL (6.4-8.2); TROPONIN I < 0.02 NG/ML (< 0.10)
[2019-06-10] MEDS: HumaLOG INSULIN (NovoLOG) PER UNIT SC SCH ×4 (09:52→21:00)
--- NOTE | 2019-06-10 10:06 | REP ---
Portable chest x-ray: AP semi-erect view. History: Concern for pulmonary congestion. Comparison chest x-ray: June 08, 2019. Findings: EKG monitoring electrodes are seen. The lungs are symmetrically aerated and free of infiltrate. There is a granulomatous calcification in the left base. Pleural angles are sharp. Pulmonary vasculature is slightly cephalized on this semiupright AP view. There is no evidence of interstitial edema. Impression: Slight cephalization of the vasculature, AP semi-erect chest. Otherwise no acute disease. Electronically Signed by Narinder Briones MD 06/10/2019 09:57 A
--- NOTE | 2019-06-10 12:01 | IPNPDOC ---
Subjective Review oF Systems Chief Complaint The patient is a 78-year-old female admitted with a reason for visit of Diabetes Mellitus. Events since Last Encounter Feeling better. No temps General: Denies: ROS Unobtainable, Chills, Night Sweats, Fatigue, Malaise, Normal Appetite, Other Symptoms Constitutional: Denies: Fever, Chills, Sweats, Weakness, Malaise, Other Cardiovascular: Denies Chest Pain, Denies Palpitations, Denies Orthopnea, Denies Paroxysmal Noc. Dyspnea, Denies Edema, Denies Lt Headedness, Denies Other Symptoms Objective Physical Examination General Exam: Alert, Cooperative, No Acute Distress Chest Exam: Normal air movement ABDOMEN EXAM: Soft Vital Signs/I&O Vital Signs Date Time Temp Pulse Resp B/P (MAP) Pulse Ox O2 Delivery O2 Flow Rate FiO2 06/10/19 06:00 97.7 60 17 176/73 (107) 90 Nasal Cannula 2.0 I&O- Last 24 Hours up to 6 AM 06/10/19 06:00 Intake Total 2644 ml Output Total 1225 ml Balance 1419 ml Laboratory Data Labs 24H Laboratory Tests 2 06/09/19 16:54: Bedside Glucose (Misc Panel) 171H 06/09/19 20:45: Bedside Glucose (Misc Panel) 191H 06/10/19 00:28: Bedside Glucose (Misc Panel) 186H 06/10/19 06:57: Bedside Glucose (Misc Panel) 199H 06/10/19 07:02: Nucleated Red Blood Cells % (auto) 0.3H, Anion Gap 8, Glomerular Filtration Rate 24.0L, Calcium Level 8.3L, Phosphorus Level 3.8, Magnesium Level 2.4, Total Bilirubin 0.2#, Aspartate Amino Transf (AST/SGOT) 17, Alanine Aminotransferase (ALT/SGPT) 22, Alkaline Phosphatase 77, Troponin I < 0.02, Total Protein 6.6, Albumin 2.1L, Albumin/Globulin Ratio 0.47L 06/10/19 11:14: Bedside Glucose (Misc Panel) 204H CBC/BMP Laboratory Tests 06/10/19 07:02 FSBS Laboratory Tests Test 06/09/19 16:54 06/09/19 20:45 06/10/19 00:28 06/10/19 06:57 Range/Units Bedside Glucose (Misc Panel) 171 191 186 199 83-110 MG/DL Test 06/10/19 11:14 Range/Units Bedside Glucose (Misc Panel) 204 83-110 MG/DL Microbiology Microbiology 06/10/19 Blood Culture, Received Pending 06/09/19 Urine Culture, Received Pending 06/08/19 Blood Culture - Preliminary, Resulted 06/08/19 Urine Culture - Final, Complete Escherichia Coli 06/08/19 Blood Culture - Preliminary, Resulted No growth after 24 hours . All specim... Assessment/Plan Date Seen The patient was seen on 06/10/19. Patient Summary A: R ureteral stone with blum-sensitive e.coli sepsis - improving post stenting P: Cont IV abx. Eventual outpt management of stone when infection treated. Following Plan/VTE VTE Prophylaxis Ordered?: Yes VTE Exclusion Mechanical Proph: N/A:VTE Prophy Ordered Plan Diet: Continue Current Activity: Continue Current Anticipated Discharge: Home ASTER RODRIGUEZ MD Jun 10, 2019 12:01
[2019-06-10 14:00] VITALS: BP 152/71
[2019-06-10] MEDS ORDERED: CYCLOBENZAPRINE 10 MG TAB PO PRN (15:15)
[2019-06-10] MEDS: DULoxetine 30 MG CAP (CYMBALTA) PO SCH (16:16)
--- NOTE | 2019-06-10 16:45 | IPNPDOC ---
Date Seen The patient was seen on 06/10/19. Progress Note HISTORY OF PRESENT ILLNESS: 78-year-old female with past medical history of diabetes, hyperlipidemia, chronic back pain due to spinal stenosis presents to the emergency room for worsening back pain radiating to her abdomen on the right side. He reports pain started about 4-5 days ago, no inciting factors, no alleviating or aggravating factors. Patient has been taking [id number] pain medication for about 2 years now since her issue began with the spinal stenosis. She reportedly takes Tylenol and ibuprofen, doesn't know how much of each, but takes 3 tabs of pain medication 3 times a day; she has been doing that for almost 2 years now. She reports her pain was at baseline up until 4 days ago when this started. She also reports associated dyspnea along with fatigue and malaise. She has polyuria at baseline, is incontinent, uses depends. She denies any change to her urinary habits. In the ED, she is found to have acute obstructive uropathy with a 12 mm stone in the proximal ureter causing moderate hydronephrosis in the right kidney along with elevated creatinine of 2.3. She denies any chest pain, vomiting or diarrhea. 06/09/2019 Patient reports significant improvement in dyspnea and pain, currently without any complaints. Patient denies any history of [place] or significant cardiac disease, has never had a stress test in the past, can't recall if ever had an echocardiogram in the past. She denies any shortness of breath, chest pain, vomiting, diarrhea or constipation at this time. Long discussion with family and patient regarding risks and benefits of the procedure along with postop complications, especially cardiac; explained to the patient and family that she is out of her to high risk for this procedure due to her medical history and current physical condition. Patient and family understand and are willing to proceed with the procedure. 06/10/2019 Status post double-J stent placement yesterday. She reports significant improvement in abdominal/flank pain, Gomes draining urine with pus. She continues to have cough with clear sputum production; she has no additional complaints at this time. She is tolerating her diet, has not been evaluated by physical therapy. She denies any chest pain, vomiting, abdominal pain or diarrhea. 10 point review of system was negative except for above PHYSICAL EXAMINATION: VITAL SIGNS: Please see below. GENERAL: No distress HEENT: Normocephalic, atraumatic, moist mucous membranes NECK: Supple CARDIOVASCULAR EXAMINATION: S1, S2, no murmurs RESPIRATORY EXAMINATION: Clear to auscultation, no wheezing ABDOMINAL EXAMINATION: Soft, mild tenderness to palpation of right flank, nondistended, positive bowel sounds EXTREMITIES: Range of motion intact, trace lower extremity edema bilaterally SKIN: No rash NEUROLOGICAL EXAMINATION: Alert and oriented 3, no focal deficits PSYCHIATRIC EXAMINATION: Calm and cooperative LABORATORY DATA: See below. IMAGING: CT abdomen with acute obstructive uropathy, 12 mm stone in the proximal ureter causing moderate hydronephrosis of the right kidney. MICROBIOLOGY: Please see below. ASSESSMENT: 78-year-old female with past. No history of diabetes and chronic back pain who takes Tylenol and ibuprofen [id number], presents with acutely worsening back pain radiating to the right flank, found to have acute obstructive uropathy and acute renal failure. . PLAN: 1. Acute renal failure. Due to acute obstructive uropathy, status post double-J stent placement, possible ATN. Discontinue IV fluids, will continue to monitor renal function. Stone management in the outpatient setting as per urology, continue Gomes. PT eval 2. Pyelonephritis Urine cultures growing Escherichia coli, blood cultures growing gram-negative rods, sensitivities pending. Repeat blood cultures ordered, continue cefepime for now. 3. Diabetes mellitus. Hold metformin, sliding scale insulin with finger sticks every before meals and at bedtime 4. Hyperlipidemia. Continue pravastatin. DVT prophylaxis: Subcutaneous heparin. GI prophylaxis: Not needed VS, I&O, 24H, Fishbone Vital Signs/I&O Vital Signs Date Time Temp Pulse Resp B/P (MAP) Pulse Ox O2 Delivery O2 Flow Rate FiO2 06/10/19 14:00 97.7 68 18 152/71 (98) 94 Nasal Cannula 2.0 I&O- Last 24 Hours up to 6 AM 06/10/19 06:00 Intake Total 2644 ml Output Total 1225 ml Balance 1419 ml Laboratory Data 24H LABS Laboratory Tests 2 06/09/19 16:54: Bedside Glucose (Misc Panel) 171H 06/09/19 20:45: Bedside Glucose (Misc Panel) 191H 06/10/19 00:28: Bedside Glucose (Misc Panel) 186H 06/10/19 06:57: Bedside Glucose (Misc Panel) 199H 06/10/19 07:02: Nucleated Red Blood Cells % (auto) 0.3H, Anion Gap 8, Glomerular Filtration Rate 24.0L, Calcium Level 8.3L, Phosphorus Level 3.8, Magnesium Level 2.4, Total Bilirubin 0.2#, Aspartate Amino Transf (AST/SGOT) 17, Alanine Aminotransferase (ALT/SGPT) 22, Alkaline Phosphatase 77, Troponin I < 0.02, Total Protein 6.6, Albumin 2.1L, Albumin/Globulin Ratio 0.47L 06/10/19 11:14: Bedside Glucose (Misc Panel) 204H CBC/BMP Laboratory Tests 06/10/19 07:02 Microbiology Microbiology 06/10/19 Blood Culture, Received Pending 06/09/19 Urine Culture, Received Pending 06/08/19 Blood Culture - Preliminary, Resulted 06/08/19 Urine Culture - Final, Complete Escherichia Coli 06/08/19 Blood Culture - Preliminary, Resulted No Growth after 48 hours. All Specime... MARYANNE VELAZQUEZ MD Jun 10, 2019 16:45
[2019-06-10] MEDS: CEFEPIME HCL 2 GM in D5W MINI-BAG PLUS 50 ML IV SCH (18:32)
[2019-06-10] MEDS: MORPHINE 4 MG/ML 1ML VIAL/SYRINGE (J2270) IV PRN (20:17)
[2019-06-10] MEDS: PRAVASTATIN 20 MG TAB PO SCH (21:29)
[2019-06-10 22:00] VITALS: BP 122/73
[2019-06-11] MEDS: IPRATROPIUM 0.5MG/ALBUTEROL 2.5MG INH SOL UD 3ML (DUONEB)(J7620) NEB SCH ×3 (02:00→20:46)
[2019-06-11] MEDS: HEPARIN SOD (PORCINE) 5000 UNITS/ML VIAL SC SCH ×3 (06:21→22:00)
[2019-06-11 06:22] LABS: HEMATOCRIT 34.1 % (36.0-47.0); MEAN CORPUSCULAR HEMOGLOBIN 29.7 pg (27.0-33.0); MEAN CORPUSCULAR HGB CONC 32.3 g/dl (32.0-36.5); MEAN CORPUSCULAR VOLUME 92.2 fl (80.0-96.0); PLATELET COUNT, AUTOMATED 238 10^3/uL (150-450); WHITE BLOOD COUNT 10.4 10^3/uL (4.0-10.0)
[2019-06-11 06:55] LABS: ALBUMIN 2.2 GM/DL (3.2-5.2); ALT/SGPT 23 U/L (12-78); BILIRUBIN,TOTAL 0.3 MG/DL (0.2-1.0); BLOOD UREA NITROGEN 64 MG/DL (7-18); CALCIUM LEVEL 8.7 MG/DL (8.8-10.2); CARBON DIOXIDE LEVEL 24 MEQ/L (21-32); CHLORIDE LEVEL 109 MEQ/L (98-107); CREATININE FOR GFR 1.96 MG/DL (0.55-1.30); GLOMERULAR FILTRATION RATE 26.4 (>39); GLUCOSE, FASTING 142 MG/DL (70-100); MAGNESIUM LEVEL 2.3 MG/DL (1.8-2.4); PHOSPHORUS LEVEL 3.1 MG/DL (2.5-4.9); POTASSIUM SERUM 4.1 MEQ/L (3.5-5.1); SODIUM LEVEL 140 MEQ/L (136-145); TOTAL PROTEIN 6.9 GM/DL (6.4-8.2); TROPONIN I < 0.02 NG/ML (< 0.10)
[2019-06-11] MEDS: HumaLOG INSULIN (NovoLOG) PER UNIT SC SCH ×4 (07:30→21:00)
[2019-06-11] MEDS: DULoxetine 30 MG CAP (CYMBALTA) PO SCH (10:08)
[2019-06-11] MEDS: CO-ENZYME Q10 50 MG CAP PO SCH (10:09)
[2019-06-11] MEDS: ASPIRIN 81 MG ENTERIC TAB PO SCH (10:09)
[2019-06-11] MEDS: LR 1,000 ML IV SCH ×2 (10:42→23:18)
[2019-06-11] MEDS: ceFAZolin SOD 1 GM in D5W MINI-BAG PLUS 50 ML IV SCH ×2 (10:42→17:20)
--- NOTE | 2019-06-11 10:53 | IPNPDOC ---
Date Seen The patient was seen on 06/11/19. Progress Note HISTORY OF PRESENT ILLNESS: 78-year-old female with past medical history of diabetes, hyperlipidemia, chronic back pain due to spinal stenosis presents to the emergency room for worsening back pain radiating to her abdomen on the right side. He reports pain started about 4-5 days ago, no inciting factors, no alleviating or aggravating factors. Patient has been taking [id number] pain medication for about 2 years now since her issue began with the spinal stenosis. She reportedly takes Tylenol and ibuprofen, doesn't know how much of each, but takes 3 tabs of pain medication 3 times a day; she has been doing that for almost 2 years now. She reports her pain was at baseline up until 4 days ago when this started. She also reports associated dyspnea along with fatigue and malaise. She has polyuria at baseline, is incontinent, uses depends. She denies any change to her urinary habits. In the ED, she is found to have acute obstructive uropathy with a 12 mm stone in the proximal ureter causing moderate hydronephrosis in the right kidney along with elevated creatinine of 2.3. She denies any chest pain, vomiting or diarrhea. 06/09/2019 Patient reports significant improvement in dyspnea and pain, currently without any complaints. Patient denies any history of [place] or significant cardiac disease, has never had a stress test in the past, can't recall if ever had an echocardiogram in the past. She denies any shortness of breath, chest pain, vomiting, diarrhea or constipation at this time. Long discussion with family and patient regarding risks and benefits of the procedure along with postop complications, especially cardiac; explained to the patient and family that she is out of her to high risk for this procedure due to her medical history and current physical condition. Patient and family understand and are willing to proceed with the procedure. 06/10/2019 Status post double-J stent placement yesterday. She reports significant improvement in abdominal/flank pain, Gomes draining urine with pus. She continues to have cough with clear sputum production; she has no additional complaints at this time. She is tolerating her diet, has not been evaluated by physical therapy. She denies any chest pain, vomiting, abdominal pain or diarrhea. 06/11/2019 Patient doing well, postop day 2, resting comfortably in bed, tolerating physical therapy evaluation. She reports significant improvement in right flank pain, no other complaints at this time. She denies any chest breath, chest pain, vomiting, abdominal pain, diarrhea. 10 point review of system was negative except for above PHYSICAL EXAMINATION: VITAL SIGNS: Please see below. GENERAL: No distress HEENT: Normocephalic, atraumatic, moist mucous membranes NECK: Supple CARDIOVASCULAR EXAMINATION: S1, S2, no murmurs RESPIRATORY EXAMINATION: Clear to auscultation, no wheezing ABDOMINAL EXAMINATION: Soft, mild tenderness to palpation of right flank, nondistended, positive bowel sounds EXTREMITIES: Range of motion intact, trace lower extremity edema bilaterally SKIN: No rash NEUROLOGICAL EXAMINATION: Alert and oriented 3, no focal deficits PSYCHIATRIC EXAMINATION: Calm and cooperative LABORATORY DATA: See below. IMAGING: CT abdomen with acute obstructive uropathy, 12 mm stone in the proximal ureter causing moderate hydronephrosis of the right kidney. MICROBIOLOGY: Please see below. ASSESSMENT: 78-year-old female with past. No history of diabetes and chronic back pain who takes Tylenol and ibuprofen [id number], presents with acutely worsening back pain radiating to the right flank, found to have acute obstructive uropathy and acute renal failure. . PLAN: 1. Acute renal failure. Due to acute obstructive uropathy, status post double-J stent placement, possible ATN. Start LR at 70 mL per hour, Gomes with good urine output, will monitor renal function. Stone management in the outpatient setting as per urology, continue Gomes. PT/OT eval pending, may require rehabilitation prior to discharge. 2. Pyelonephritis Intraoperative & blood cultures growing sensitive Escherichia coli, downgrade antibiotics to Ancef. Patient is medically stable, no signs of disseminated infection. 3. Diabetes mellitus. Hold metformin, sliding scale insulin with finger sticks every before meals and at bedtime 4. Hyperlipidemia. Continue pravastatin. DVT prophylaxis: Subcutaneous heparin. GI prophylaxis: Not needed VS, I&O, 24H, [place] Vital Signs/I&O Vital Signs Date Time Temp Pulse Resp B/P (MAP) Pulse Ox O2 Delivery O2 Flow Rate FiO2 06/10/19 22:00 97.1 78 18 122/73 (89) 96 Nasal Cannula 2.0 I&O- Last 24 Hours up to 6 AM 06/11/19 05:59 Intake Total 1774 ml Output Total 2100 ml Balance -326 ml Laboratory Data 24H LABS Laboratory Tests 2 06/10/19 11:14: Bedside Glucose (Misc Panel) 204H 06/10/19 16:51: Bedside Glucose (Misc Panel) 189H 06/10/19 21:16: Bedside Glucose (Misc Panel) 147H 06/11/19 05:58: Nucleated Red Blood Cells % (auto) 0.0, Anion Gap 7L, Glomerular Filtration Rate 26.4L, Calcium Level 8.7L, Phosphorus Level 3.1, Magnesium Level 2.3, Total Bilirubin 0.3, Aspartate Amino Transf (AST/SGOT) 19, Alanine Aminotransferase (ALT/SGPT) 23, Alkaline Phosphatase 79, Troponin I < 0.02, Total Protein 6.9, Albumin 2.2L, Albumin/Globulin Ratio 0.47L 06/11/19 06:19: Bedside Glucose (Misc Panel) 195H CBC/BMP Laboratory Tests 06/11/19 05:58 Microbiology Microbiology 06/10/19 Blood Culture - Preliminary, Resulted No growth after 24 hours . All specim... 06/09/19 Urine Culture - Final, Complete Escherichia Coli 06/08/19 Blood Culture - Final, Complete Escherichia Coli 06/08/19 Urine Culture - Final, Complete Escherichia Coli 06/08/19 Blood Culture - Preliminary, Resulted No Growth after 48 hours. All Specime... MARYANNE VELAZQUEZ MD Jun 11, 2019 10:53
--- NOTE | 2019-06-11 11:47 | IPNPDOC ---
Subjective Review oF Systems Chief Complaint The patient is a 78-year-old female admitted with a reason for visit of Diabetes Mellitus. Events since Last Encounter S: "I feel much better" General: Denies: ROS Unobtainable, Chills, Night Sweats, Fatigue, Malaise, Normal Appetite, Other Symptoms Constitutional: Denies: Fever, Chills, Sweats, Weakness, Malaise, Other Objective Physical Examination General Exam: Alert, Cooperative, No Acute Distress Chest Exam: Normal air movement Heart Exam: Positive: Rate Normal ABDOMEN EXAM: Normal bowel sounds, Soft Vital Signs/I&O Vital Signs Date Time Temp Pulse Resp B/P (MAP) Pulse Ox O2 Delivery O2 Flow Rate FiO2 06/10/19 22:00 97.1 78 18 122/73 (89) 96 Nasal Cannula 2.0 l I&O- Last 24 Hours up to 6 AM 06/11/19 06:00 Intake Total 910 ml Output Total 1750 ml Balance -840 ml Laboratory Data Labs 24H Laboratory Tests 2 06/10/19 16:51: Bedside Glucose (Misc Panel) 189H 06/10/19 21:16: Bedside Glucose (Misc Panel) 147H 06/11/19 05:58: Nucleated Red Blood Cells % (auto) 0.0, Anion Gap 7L, Glomerular Filtration Rate 26.4L, Calcium Level 8.7L, Phosphorus Level 3.1, Magnesium Level 2.3, Total Bilirubin 0.3, Aspartate Amino Transf (AST/SGOT) 19, Alanine Aminotransferase (ALT/SGPT) 23, Alkaline Phosphatase 79, Troponin I < 0.02, Total Protein 6.9, Albumin 2.2L, Albumin/Globulin Ratio 0.47L 06/11/19 06:19: Bedside Glucose (Misc Panel) 195H CBC/BMP Laboratory Tests 06/11/19 05:58 FSBS Laboratory Tests Test 06/10/19 16:51 06/10/19 21:16 06/11/19 06:19 Range/Units Bedside Glucose (Misc Panel) 189 147 195 83-110 MG/DL Microbiology Microbiology 06/10/19 Blood Culture - Preliminary, Resulted No growth after 24 hours . All specim... 06/09/19 Urine Culture - Final, Complete Escherichia Coli 06/08/19 Blood Culture - Final, Complete Escherichia Coli 06/08/19 Urine Culture - Final, Complete Escherichia Coli 06/08/19 Blood Culture - Preliminary, Resulted No Growth after 48 hours. All Specime... Assessment/Plan Date Seen The patient was seen on 06/11/19. Patient Summary A: E coli sepsis, s/p B stent placements; improving post renal azotemia Plan/VTE VTE Prophylaxis Ordered?: Yes VTE Exclusion Mechanical Proph: N/A:VTE Prophy Ordered Plan P: D/C tanner. Plan outpt ureteroscopic stone management after recovery from sepsis. Will need 1 week f/u in Urology clinic to arrange. Diet: Continue Current Activity: Continue Current Anticipated Discharge: Home ASTER RODRIGUEZ MD Jun 11, 2019 11:47
[2019-06-11 14:00] VITALS: BP 137/71
[2019-06-11] MEDS ORDERED: ONDANSETRON 4MG/2ML VIAL (J2405) IV PRN (19:45)
[2019-06-11] MEDS: PRAVASTATIN 20 MG TAB PO SCH (20:17)
[2019-06-11 22:00] VITALS: BP 135/85
[2019-06-12] MEDS: IPRATROPIUM 0.5MG/ALBUTEROL 2.5MG INH SOL UD 3ML (DUONEB)(J7620) NEB SCH ×4 (00:21→20:24)
[2019-06-12] MEDS: ceFAZolin SOD 1 GM in D5W MINI-BAG PLUS 50 ML IV SCH ×3 (00:30→18:03)
[2019-06-12] MEDS: LR 1,000 ML IV SCH (02:50)
[2019-06-12] MEDS: HEPARIN SOD (PORCINE) 5000 UNITS/ML VIAL SC SCH ×3 (05:57→21:25)
[2019-06-12 06:00] VITALS: BP 137/60
[2019-06-12 06:43] LABS: HEMATOCRIT 34.1 % (36.0-47.0); HEMOGLOBIN 10.9 g/dl (12.0-15.5); MEAN CORPUSCULAR HEMOGLOBIN 28.9 pg (27.0-33.0); MEAN CORPUSCULAR VOLUME 90.5 fl (80.0-96.0); PLATELET COUNT, AUTOMATED 282 10^3/uL (150-450); RED BLOOD COUNT 3.77 10^6/uL (4.00-5.40); WHITE BLOOD COUNT 11.5 10^3/uL (4.0-10.0)
[2019-06-12 07:06] LABS: BLOOD UREA NITROGEN 47 MG/DL (7-18); CALCIUM LEVEL 8.7 MG/DL (8.8-10.2); CARBON DIOXIDE LEVEL 25 MEQ/L (21-32); CHLORIDE LEVEL 109 MEQ/L (98-107); GLOMERULAR FILTRATION RATE 33.4 (>39); GLUCOSE, FASTING 107 MG/DL (70-100); PHOSPHORUS LEVEL 3.4 MG/DL (2.5-4.9); POTASSIUM SERUM 3.9 MEQ/L (3.5-5.1); SODIUM LEVEL 140 MEQ/L (136-145); TROPONIN I < 0.02 NG/ML (< 0.10)
[2019-06-12] MEDS: HumaLOG INSULIN (NovoLOG) PER UNIT SC SCH ×4 (10:28→21:00)
[2019-06-12] MEDS: DULoxetine 30 MG CAP (CYMBALTA) PO SCH (10:28)
[2019-06-12] MEDS: CO-ENZYME Q10 50 MG CAP PO SCH (10:29)
[2019-06-12] MEDS: ASPIRIN 81 MG ENTERIC TAB PO SCH (10:29)
[2019-06-12 14:00] VITALS: BP 128/83
--- NOTE | 2019-06-12 14:29 | IPNPDOC ---
Subjective Review oF Systems Chief Complaint The patient is a 78-year-old female admitted with a reason for visit of Diabetes Mellitus. Events since Last Encounter "I'm feeling better." General: Denies: ROS Unobtainable, Chills, Night Sweats, Fatigue, Malaise, Normal Appetite, Other Symptoms Constitutional: Denies: Fever, Chills, Sweats, Weakness, Malaise, Other Eyes: Denies: Pain, Vision change, Conjunctivae inflammation, Eyelid inflammation, Redness, Other Genitourinary: Reports: Other Symptoms (some back pain while voiding. This is on the right side); Denies: Dysuria, Frequency, Incontinence, Hematuria, Retention Objective Physical Examination General Exam: Alert, Cooperative, No Acute Distress Eye Exam: PERRLA ENT EXAM: Atraumatic Chest Exam: Normal air movement Heart Exam: Positive: Rate Normal ABDOMEN EXAM: Normal bowel sounds, Soft Vital Signs/I&O Vital Signs Date Time Temp Pulse Resp B/P (MAP) Pulse Ox O2 Delivery O2 Flow Rate FiO2 06/12/19 06:00 97.2 67 18 137/60 (85) 92 Room Air 06/10/19 22:00 2.0 I&O- Last 24 Hours up to 6 AM 06/12/19 05:59 Intake Total 1540 ml Output Total 1450 ml Balance 90 ml Laboratory Data Labs 24H Laboratory Tests 2 06/11/19 16:43: Bedside Glucose (Misc Panel) 109 06/11/19 19:17: Bedside Glucose (Misc Panel) 111H 06/11/19 20:19: Bedside Glucose (Misc Panel) 109 06/12/19 06:13: Nucleated Red Blood Cells % (auto) 0.0, Anion Gap 6L, Glomerular Filtration Rate 33.4L, Calcium Level 8.7L, Phosphorus Level 3.4, Magnesium Level 2.0, Troponin I < 0.02 06/12/19 11:32: Bedside Glucose (Misc Panel) 145H CBC/BMP Laboratory Tests 06/12/19 06:13 FSBS Laboratory Tests Test 06/11/19 16:43 06/11/19 19:17 06/11/19 20:19 06/12/19 11:32 Range/Units Bedside Glucose (Misc Panel) 109 111 109 145 83-110 MG/DL Microbiology Microbiology 06/10/19 Blood Culture - Preliminary, Resulted No Growth after 48 hours. All Specime... 06/09/19 Urine Culture - Final, Complete Escherichia Coli 06/08/19 Blood Culture - Final, Complete Escherichia Coli 06/08/19 Urine Culture - Final, Complete Escherichia Coli 06/08/19 Blood Culture - Preliminary, Resulted No Growth after 72 hours. All specime... Assessment/Plan Date Seen The patient was seen on 06/12/19. Patient Summary Cultures growing pansensitive Escherichia coli. Impression: Bilateral ureteral stones with Escherichia coli sepsis. Improving. Plan/VTE VTE Prophylaxis Ordered?: Yes VTE Exclusion Mechanical Proph: N/A:VTE Prophy Ordered Plan Plan: Home soon on appropriate antibiotic therapy with follow-up in one week to arrange ureteroscopic stone extractions. She is agreeable to this plan and her questions are answered. Diet: Continue Current Activity: Continue Current Anticipated Discharge: Home ASTER RODRIGUEZ MD Jun 12, 2019 14:29
--- NOTE | 2019-06-12 15:28 | IPNPDOC ---
Date Seen The patient was seen on 06/12/19. Progress Note HISTORY OF PRESENT ILLNESS: 78-year-old female with past medical history of diabetes, hyperlipidemia, chronic back pain due to spinal stenosis presents to the emergency room for worsening back pain radiating to her abdomen on the right side. He reports pain started about 4-5 days ago, no inciting factors, no alleviating or aggravating factors. Patient has been taking gdns-afr-khbjowi pain medication for about 2 years now since her issue began with the spinal stenosis. She reportedly takes Tylenol and ibuprofen, doesn't know how much of each, but takes 3 tabs of pain medication 3 times a day; she has been doing that for almost 2 years now. She reports her pain was at baseline up until 4 days ago when this started. She also reports associated dyspnea along with fatigue and malaise. She has polyuria at baseline, is incontinent, uses depends. She denies any change to her urinary habits. In the ED, she is found to have acute obstructive uropathy with a 12 mm stone in the proximal ureter causing moderate hydronephrosis in the right kidney along with elevated creatinine of 2.3. She denies any chest pain, vomiting or diarrhea. 06/09/2019 Patient reports significant improvement in dyspnea and pain, currently without any complaints. Patient denies any history of [place] or significant cardiac disease, has never had a stress test in the past, can't recall if ever had an echocardiogram in the past. She denies any shortness of breath, chest pain, vomiting, diarrhea or constipation at this time. Long discussion with family and patient regarding risks and benefits of the procedure along with postop complications, especially cardiac; explained to the patient and family that she is out of her to high risk for this procedure due to her medical history and current physical condition. Patient and family understand and are willing to proceed with the procedure. 06/10/2019 Status post double-J stent placement yesterday. She reports significant improvement in abdominal/flank pain, Gomes draining urine with pus. She continues to have cough with clear sputum production; she has no additional complaints at this time. She is tolerating her diet, has not been evaluated by physical therapy. She denies any chest pain, vomiting, abdominal pain or diarrhea. 06/11/2019 Patient doing well, postop day 2, resting comfortably in bed, tolerating physical therapy evaluation. She reports significant improvement in right flank pain, no other complaints at this time. She denies any chest breath, chest pain, vomiting, abdominal pain, diarrhea. 06/12/2019 No acute events overnight, reports significant improvement and flank pain, ambulating around the room without difficulty, tolerating diet. She denies any shortness of breath, chest pain, vomiting, abdominal pain, diarrhea. Gomes catheter was removed yesterday, no difficulties with urination. 10 point review of system was negative except for above PHYSICAL EXAMINATION: VITAL SIGNS: Please see below. GENERAL: No distress HEENT: Normocephalic, atraumatic, moist mucous membranes NECK: Supple CARDIOVASCULAR EXAMINATION: S1, S2, no murmurs RESPIRATORY EXAMINATION: Clear to auscultation, no wheezing ABDOMINAL EXAMINATION: Soft, mild tenderness to palpation of right flank, nondistended, positive bowel sounds EXTREMITIES: Range of motion intact, trace lower extremity edema bilaterally SKIN: No rash NEUROLOGICAL EXAMINATION: Alert and oriented 3, no focal deficits PSYCHIATRIC EXAMINATION: Calm and cooperative LABORATORY DATA: See below. IMAGING: CT abdomen with acute obstructive uropathy, 12 mm stone in the proximal ureter causing moderate hydronephrosis of the right kidney. MICROBIOLOGY: Please see below. ASSESSMENT: 78-year-old female with past. No history of diabetes and chronic back pain who takes Tylenol and ibuprofen [id number], presents with acutely worsening back pain radiating to the right flank, found to have acute obstructive uropathy and acute renal failure. . PLAN: 1. Acute renal failure. Due to acute obstructive uropathy, status post double-J stent placement, possible ATN. Ogmes catheter removed, renal function improving, discontinue IV fluids. Stone management in the outpatient setting as per urology, continue Gomes. PT/OT eval 2. Pyelonephritis Intraoperative & blood cultures growing sensitive Escherichia coli, downgrade antibiotics to Ancef. Patient is medically stable, no signs of disseminated infection. 3. Diabetes mellitus. Hold metformin, sliding scale insulin with finger sticks every before meals and at bedtime 4. Hyperlipidemia. Continue pravastatin. DVT prophylaxis: Subcutaneous heparin. GI prophylaxis: Not needed VS, I&O, 24H, Fishbone Vital Signs/I&O Vital Signs Date Time Temp Pulse Resp B/P (MAP) Pulse Ox O2 Delivery O2 Flow Rate FiO2 06/12/19 14:00 98.0 77 18 128/83 (98) 99 Room Air 06/10/19 22:00 2.0 I&O- Last 24 Hours up to 6 AM 06/12/19 05:59 Intake Total 1540 ml Output Total 1450 ml Balance 90 ml Laboratory Data 24H LABS Laboratory Tests 2 06/11/19 16:43: Bedside Glucose (Misc Panel) 109 06/11/19 19:17: Bedside Glucose (Misc Panel) 111H 06/11/19 20:19: Bedside Glucose (Misc Panel) 109 06/12/19 06:13: Nucleated Red Blood Cells % (auto) 0.0, Anion Gap 6L, Glomerular Filtration Rate 33.4L, Calcium Level 8.7L, Phosphorus Level 3.4, Magnesium Level 2.0, Troponin I < 0.02 06/12/19 11:32: Bedside Glucose (Misc Panel) 145H CBC/BMP Laboratory Tests 06/12/19 06:13 Microbiology Microbiology 06/10/19 Blood Culture - Preliminary, Resulted No Growth after 48 hours. All Specime... 06/09/19 Urine Culture - Final, Complete Escherichia Coli 06/08/19 Blood Culture - Final, Complete Escherichia Coli 06/08/19 Urine Culture - Final, Complete Escherichia Coli 06/08/19 Blood Culture - Preliminary, Resulted No Growth after 72 hours. All specime... MARYANNE VELAZQUEZ MD Jun 12, 2019 15:28
[2019-06-12 16:50] LABS: MAGNESIUM LEVEL 1.9 MG/DL (1.8-2.4); PHOSPHORUS LEVEL 3.2 MG/DL (2.5-4.9)
[2019-06-12] MEDS: PRAVASTATIN 20 MG TAB PO SCH (21:24)
[2019-06-12] MEDS: ACETAMINOPHEN 500 MG TAB PO PRN (21:24)
[2019-06-12 22:00] VITALS: BP 147/72
[2019-06-13] MEDS: ceFAZolin SOD 1 GM in D5W MINI-BAG PLUS 50 ML IV SCH ×2 (00:32→09:32)
[2019-06-13] MEDS: IPRATROPIUM 0.5MG/ALBUTEROL 2.5MG INH SOL UD 3ML (DUONEB)(J7620) NEB SCH ×2 (01:11→08:00)
[2019-06-13] MEDS: HEPARIN SOD (PORCINE) 5000 UNITS/ML VIAL SC SCH (05:11)
[2019-06-13 06:00] VITALS: BP 159/74
[2019-06-13 06:15] LABS: HEMATOCRIT 35.9 % (36.0-47.0); HEMOGLOBIN 11.5 g/dl (12.0-15.5); MEAN CORPUSCULAR HEMOGLOBIN 28.9 pg (27.0-33.0); MEAN CORPUSCULAR VOLUME 90.2 fl (80.0-96.0); PLATELET COUNT, AUTOMATED 338 10^3/uL (150-450); RED BLOOD COUNT 3.98 10^6/uL (4.00-5.40); WHITE BLOOD COUNT 13.6 10^3/uL (4.0-10.0)
[2019-06-13 06:36] LABS: CALCIUM LEVEL 8.9 MG/DL (8.8-10.2); CREATININE FOR GFR 1.43 MG/DL (0.55-1.30); POTASSIUM SERUM 3.8 MEQ/L (3.5-5.1)
[2019-06-13] MEDS: HumaLOG INSULIN (NovoLOG) PER UNIT SC SCH ×2 (07:30→13:39)
[2019-06-13] MEDS: ASPIRIN 81 MG ENTERIC TAB PO SCH (09:31)
[2019-06-13] MEDS: CO-ENZYME Q10 50 MG CAP PO SCH (09:31)
[2019-06-13] MEDS: DULoxetine 30 MG CAP (CYMBALTA) PO SCH (09:31)
[2019-06-13] MEDS: ACETAMINOPHEN 500 MG TAB PO PRN (09:32)
[2019-06-13] MEDS ORDERED: LEVO750T13 PO ×2 (12:16→12:17)
[2019-06-13] MEDS ORDERED: VENTAER INH (12:16)
--- NOTE | 2019-06-13 21:10 | DS.PDOC ---
Discharge Summary General Date of Admission Jun 08, 2019 at 16:52 Date of Discharge 06/13/19 Discharge Summary PROCEDURES PERFORMED DURING STAY: None ADMITTING DIAGNOSES: Acute renal failure. Pyelonephritis Diabetes mellitus Hyperlipidemia DISCHARGE DIAGNOSES: Acute renal failure. Pyelonephritis Diabetes mellitus Hyperlipidemia COMPLICATIONS/CHIEF COMPLAINT: Diabetes Mellitus. HISTORY OF PRESENT ILLNESS: Progress Note HISTORY OF PRESENT ILLNESS: 78-year-old female with past medical history of diab etes, hyperlipidemia, chronic back pain due to spinal stenosis presents to the emergency room for worsening back pain radiating to her abdomen on the right side. He reports pain started about 4-5 days ago, no inciting factors, no alleviating or aggravating factors. Patient has been taking tycu-nyd-okhfoon pain medication for about 2 years now since her issue began with the spinal stenosis. She reportedly takes Tylenol and ibuprofen, doesn't know how much of each, but takes 3 tabs of pain medication 3 times a day; she has been doing that for almost 2 years now. She reports her pain was at baseline up until 4 days ago when this started. She also reports associated dyspnea along with fatigue and malaise. She has polyuria at baseline, is incontinent, uses depends. She denies any change to her urinary habits. In the ED, she is found to have acute obstructive uropathy with a 12 mm stone in the proximal ureter causing moderate hydronephrosis in the right kidney along with elevated creatinine of 2.3. She denies any chest pain, vomiting or diarrhea. 06/09/2019 Patient reports significant improvement in dyspnea and pain, currently without any complaints. Patient denies any history of [place] or significant cardiac disease, has never had a stress test in the past, can't recall if ever had an ec hocardiogram in the past. She denies any shortness of breath, chest pain, vomiting, diarrhea or constipation at this time. Long discussion with family and patient regarding risks and benefits of the procedure along with postop complications, especially cardiac; explained to the patient and family that she is out of her to high risk for this procedure due to her medical history and current physical condition. Patient and family understand and are willing to proceed with the procedure. 06/10/2019 Status post double-J stent placement yesterday. She reports significant improvement in abdominal/flank pain, Gomes draining urine with pus. She continues to have cough with clear sputum production; she has no additional complaints at this time. She is tolerating her diet, has not been evaluated by physical therapy. She denies any chest pain, vomiting, abdominal pain or diarrhea. 06/11/2019 Patient doing well, postop day 2, resting comfortably in bed, tolerating physical therapy evaluation. She reports significant improvement in right flank pain, no other complaints at this time. She denies any chest breath, chest pain, vomiting, abdominal pain, diarrhea. 06/12/2019 No acute events overnight, reports significant improvement and flank pain, ambulating around the room without difficulty, tolerating diet. She denies any shortness of breath, chest pain, vomiting, abdominal pain, diarrhea. Gomes catheter was removed yesterday, no difficulties with urination. HOSPITAL COURSE:see above DISCHARGE MEDICATIONS: Please see below. ALLERGIES: Please see below. PHYSICAL EXAMINATION ON DISCHARGE: VITAL SIGNS: Please see below. GENERAL: No distress HEENT: Normocephalic, atraumatic, moist mucous membranes NECK: Supple CARDIOVASCULAR EXAMINATION: S1, S2, no murmurs RESPIRATORY EXAMINATION: Clear to auscultation, no wheezing ABDOMINAL EXAMINATION: Soft, mild tenderness to palpation of right flank, nondistended, positive bowel sounds EXTREMITIES: Range of motion intact, trace lower extremity edema bilaterally SKIN: No rash NEUROLOGICAL EXAMINATION: Alert and oriented 3, no focal deficits PSYCHIATRIC EXAMINATION: Calm and cooperative LABORATORY DATA: Please see below. IMAGING: CT abdomen and pelvis without IV or oral contrast: History: Injury in a fall. No comparison CT study. 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 The lung bases show a granulomatous calcification in the left lower lobe and some minimal bibasilar fibrosis. There is another granulomatous calcification in the right middle lobe. The liver and the spleen are normal in size and homogeneous in texture. No definite abnormality in the gallbladder. No abnormality in the pancreas. No adrenal lesion is seen. There is a spherical lesion projecting anteriorly from the lower pole of the left kidney measuring 2.7 cm in greatest diameter. This shows relatively high attenuation and I cannot exclude a renal mass. No hydronephrosis or intrarenal calculus is noted on the left. On the right, however, the kidney shows moderate swelling and there is a obstructive calculus in the proximal ureter. The calculus measures 12 mm in greatest diameter and there is moderate hydronephrosis above this. There are two intrarenal calculi in the lower pole collecting system of the right kidney which are fairly large as well measuring 10 and 7 mm respectively. There is perinephric and amadou ureteral stranding. No distal ureteral calculus is observed. Urinary bladder is completely empty at the time of scanning but intact. No uterine or ovarian abnormality is seen. No left-sided hydronephrosis. There is left colonic diverticulosis without CT evidence of diverticulitis. No abdominal wall defect is seen. No bowel obstruction is seen. Impression: Acute obstructive uropathy right kidney with moderate hydronephrosis due to a 12 mm obstructive calculus in the proximal ureter. There are two large calculi within the right kidney collecting system as well. Perinephric and periureteral stranding and right renal enlargement are seen associated with this. Also noted is a 2.7 cm possible mass versus complex cyst in the lower pole left kidney. Recommend renal sonography or CT scanning post contrast for further evaluation. There is left colonic diverticulosis. PROGNOSIS: favorable ACTIVITY: As tolerated DIET: Cardiac DISCHARGE PLAN: Follow-up with PCP and urologist DISPOSITION: 01 Home, Self-Care. DISCHARGE INSTRUCTIONS: Take prescribed medication. ITEMS TO FOLLOWUP ON ON OUTPATIENT: Take plenty of fluid DISCHARGE CONDITION: Stable TIME SPENT ON DISCHARGE: Greater than 20 minutes. Vital Signs/I&Os Vital Signs Date Time Temp Pulse Resp B/P (MAP) Pulse Ox O2 Delivery O2 Flow Rate FiO2 06/13/19 06:00 98.0 78 18 159/74 (102) 95 06/12/19 14:00 Room Air 06/10/19 22:00 2.0 I&O- Last 24 Hours up to 6 AM 06/13/19 06:00 Intake Total 1900 ml Output Total 1200 ml Balance 700 ml Laboratory Data Labs 24H Laboratory Tests 2 06/13/19 05:45: Nucleated Red Blood Cells % (auto) 0.0, Anion Gap 6L, Glomerular Filtration Rate 38.0L, Calcium Level 8.9 06/13/19 11:28: Bedside Glucose (Misc Panel) 162H CBC/BMP Laboratory Tests 06/13/19 05:45 FSBS Laboratory Tests Test 06/13/19 11:28 Range/Units Bedside Glucose (Misc Panel) 162 83-110 MG/DL Microbiology Microbiology 06/10/19 Blood Culture - Preliminary, Resulted No Growth after 72 hours. All specime... 06/09/19 Urine Culture - Final, Complete Escherichia Coli 06/08/19 Blood Culture - Final, Complete Escherichia Coli 06/08/19 Urine Culture - Final, Complete Escherichia Coli 06/08/19 Blood Culture - Final, Complete NO GROWTH AFTER 5 DAYS Discharge Medications Scheduled Aspirin (Aspir 81) 81 Mg Tablet.dr, 81 MG PO DAILY, (Reported) Cholecalciferol (Vitamin D3) (Vitamin D3) 1,000 Unit Capsule, 1,000 UNIT PO DAILY, (Reported) Duloxetine Hcl (Duloxetine HCl) 60 Mg Cap, 60 MG PO DAILY, (Reported) Ergocalciferol (Vitamin D2) (Vitamin D2) 50,000 Unit Capsule, 50,000 UNIT PO 1XWK, (Reported) Wednesday Levofloxacin (Levofloxacin) 750 Mg Tablet, 1 TAB PO DAILY Metformin HCl (Metformin HCl) 500 Mg Tab, 500 MG PO BID, (Reported) TOLD BY PCP TO STOP TAKING Pravastatin Sodium (Pravachol) 80 Mg Tab, 80 MG PO QHS, (Reported) Ubidecarenone (Co Q10) 200 Mg Capsule, 200 MG PO DAILY, (Reported) Scheduled PRN Acetaminophen (Acetaminophen) 500 Mg Tablet, 1,500 MG PO Q8H PRN for PAIN, (Reported) Albuterol Sulfate (Ventolin Hfa) 18 Gm Hfa.aer.ad, 2 PUFF INH Q4-6HP PRN for wheezing Cyclobenzaprine HCl (Cyclobenzaprine HCl) 10 Mg Tablet, 10 MG PO BID PRN for MUSCLE SPASMS, (Reported) Allergies Coded Allergies: No Known Allergies (Unverified , 06/09/19) ROHITH WILKINS DO Jun 13, 2019 21:10
== END 2019-06-13 12:49 | disposition home health service (06) | DRG 660 ==
LOC: M ED 13:18 → M ED INP 16:52 → M MSPAV 21:18
PROVIDERS: ADMIT Internal Medicine; ATTEND Internal Medicine
PROC: 0T738DZ Dilation of Right Kidney Pelvis with Intraluminal Device, Via Natural or Artificial Opening Endoscopic (ICD-10-PCS; principal; 2019-06-09 14:20)
DX: N10 Acute pyelonephritis (principal); N20.1 Calculus of ureter; N17.9 Acute kidney failure, unspecified; E11.9 Type 2 diabetes mellitus without complications; E78.5 Hyperlipidemia, unspecified; Z79.82 Long term (current) use of aspirin; Z79.899 Other long term (current) drug therapy; Z96.642 Presence of left artificial hip joint; Z87.891 Personal history of nicotine dependence; N30.90 Cystitis, unspecified without hematuria; I10 Essential (primary) hypertension; M19.90 Unspecified osteoarthritis, unspecified site; G47.00 Insomnia, unspecified; F32.9 Major depressive disorder, single episode, unspecified; E55.9 Vitamin D deficiency, unspecified

== ENCOUNTER → 2019-06-15 | Outpatient (REF) | payer MEDICARE ==
[~2019-06-15] MED LIST changes: +ACET-683 PO; +ASPI81TA85 PO; +COQ1200C3 PO; +CYCL10TA PO; +CYCL5TAB PO; +D 101000 PO; +LEVO750T13 PO; +VENTAER INH
[2019-06-15 17:07] LABS: ALBUMIN 2.8 GM/DL (3.2-5.2); BILIRUBIN,TOTAL 0.4 MG/DL (0.2-1.0); CALCIUM LEVEL 8.9 MG/DL (8.8-10.2); CREATININE FOR GFR 1.28 MG/DL (0.55-1.30); GLOMERULAR FILTRATION RATE 43.2 (>39); POTASSIUM SERUM 4.4 MEQ/L (3.5-5.1); TOTAL PROTEIN 6.9 GM/DL (6.4-8.2)
[2019-06-15 17:15] LABS: HEMATOCRIT 37.6 % (36.0-47.0); MEAN CORPUSCULAR HEMOGLOBIN 29.7 pg (27.0-33.0); MEAN CORPUSCULAR HGB CONC 31.9 g/dl (32.0-36.5); MEAN CORPUSCULAR VOLUME 93.1 fl (80.0-96.0); PLATELET COUNT, AUTOMATED 444 10^3/uL (150-450); RED BLOOD COUNT 4.04 10^6/uL (4.00-5.40); WHITE BLOOD COUNT 12.5 10^3/uL (4.0-10.0)
[2019-06-15 19:32] LABS: EOSINOPHILS 3 % (0-3); LYMPHOCYTES 19 % (16-44); METAMYELOCYTES 1 % (0-0); MONOCYTES 4 % (0-5); NEUTROPHILS 73 % (28-66)
[2019-06-15 19:33] LABS: PLATELET ESTIMATE NORMAL (NORMAL)
== END ==
LOC: M SFHCLERA 12:03
PROVIDERS: ATTEND Family Medicine
DX: N18.9 Chronic kidney disease, unspecified (principal)
CPT/HCPCS: 80053; 85025; 99496; G0463

== ENCOUNTER → 2019-06-22 | Outpatient (REF) | payer MEDICARE ==
[2019-06-22 17:03] LABS: ALBUMIN 3.4 GM/DL (3.2-5.2); BLOOD UREA NITROGEN 13 MG/DL (7-18); CALCIUM LEVEL 9.1 MG/DL (8.8-10.2); CARBON DIOXIDE LEVEL 33 MEQ/L (21-32); CHLORIDE LEVEL 103 MEQ/L (98-107); CREATININE FOR GFR 0.94 MG/DL (0.55-1.30); GLOMERULAR FILTRATION RATE > 60.0 (>39); GLUCOSE, FASTING 92 MG/DL (70-100); PHOSPHORUS LEVEL 3.5 MG/DL (2.5-4.9); POTASSIUM SERUM 4.4 MEQ/L (3.5-5.1); SODIUM LEVEL 141 MEQ/L (136-145)
[2019-06-22 17:46] LABS: HEMOGLOBIN A1c 6.6 %
== END ==
LOC: M SFHCLERA 11:30
PROVIDERS: ATTEND Family Medicine
DX: E11.9 Type 2 diabetes mellitus without complications (principal)
CPT/HCPCS: 80069; 83036; G0463

== ENCOUNTER → 2019-06-23 | Outpatient (CLI) | payer MEDICARE ==
[~2019-06-23] MED LIST changes: +ISOVUE-370 76% 100ML VIAL (Q9967) As Ordered ONE
--- NOTE | 2019-06-23 19:25 | REP ---
Clinical: Hydronephrosis and renal mass. Technique: Axial contrast enhanced images of the abdomen and pelvis using 100 ml Isovue 370 intravenous contrast material with images obtained in the corticomedullary phase of renal enhancement. Precontrast, arterial phase, and 5-minute delayed phase images of the abdomen were obtained along with coronal and sagittal re-formations. Findings: Right kidney demonstrates a ureteral stent in satisfactory position extending from the renal pelvis to the bladder and the previously noted hydronephrosis has resolved. Mild residual perinephric stranding is appreciated along with a 9 mm residual calculus at the level of the ureteropelvic junction (images 401:77 - 79). Left kidney includes a 2.4 cm round lesion along the anterior lower pole which demonstrates enhancement and is concerning for renal cell carcinoma unless proven otherwise. 2 mm nonobstructing left renal calculus is also identified without hydroureternephrosis or obstructing ureteral calculus. Liver, spleen, pancreas, gallbladder, and bilateral adrenal glands are normal. The enteric system demonstrates colonic and sigmoid diverticulosis without acute diverticulitis. Pelvis demonstrates normal bladder and age-appropriate uterus/adnexa. 1 cm fat containing periumbilical hernia identified. No ascites. No free air. No significant adenopathy. Abdominal aorta demonstrates atherosclerotic changes without aneurysm or dissection. Musculoskeletal structures demonstrate degenerative changes without focal abnormality. Left hip replacement noted. Small calcified granulomata at the lung bases. Impression: 1. Right kidney demonstrates ureteral stent in satisfactory position with decreased perinephric stranding and no residual hydronephrosis. A 9 mm calculus is identified at the ureteropelvic junction adjacent to the stent. 2. 2.4 cm left renal mass demonstrating enhancement should be considered as renal cell carcinoma unless proven otherwise. Consider ultrasound and/or MRI for further investigation if necessary. 2 mm nonobstructing left renal calculus also identified. 3. Sigmoid diverticulosis. Electronically Signed by Kristopher Marion MD 06/23/2019 07:16 P
== END ==
LOC: M RAD 16:24
PROVIDERS: ATTEND Nurse Practitioner Women's Health
DX: N13.2 Hydronephrosis with renal and ureteral calculous obstruction (principal)
CPT/HCPCS: 74178; Q9967

== ENCOUNTER → 2019-06-26 | Outpatient (REF) | payer MEDICARE ==
[~2019-06-26] MED LIST changes: -ISOVUE-370 76% 100ML VIAL (Q9967) As Ordered ONE
[2019-06-26 13:03] LABS: CHOLESTEROL RISK RATIO 3.087 (<5)
== END ==
LOC: M SFHCLERA 09:32
PROVIDERS: ATTEND Family Medicine
DX: E11.9 Type 2 diabetes mellitus without complications (principal)

== ENCOUNTER → 2019-07-03 | Outpatient (REF) | payer MEDICARE ==
[2019-07-03 17:38] LABS: APPEARANCE, URINE CLEAR (CLEAR); BACTERIA, URINE AUTO NEGATIVE (NEGATIVE); BILIRUBIN, URINE AUTO NEGATIVE (NEGATIVE); BLOOD, URINE BLOOD 2+ (NEGATIVE); COLOR, URINE YELLOW (YELLOW); GLUCOSE, URINE (UA) AUTO NEGATIVE (NEGATIVE); KETONE, URINE AUTO NEGATIVE (NEGATIVE); LEUKOCYTE ESTERASE, URINE AUTO 3+ (NEGATIVE); NITRITE, URINE AUTO NEGATIVE (NEGATIVE); PROTEIN, URINE AUTO 1+ mg/dL (NEGATIVE); RBC, URINE AUTO 2 /HPF (0-3); SQUAMOUS EPITHELIAL CELL UR AU 2 /HPF (0-6); UROBILINOGEN, URINE AUTO 0.2 mg/dL (0.0-2.0); WBC, URINE AUTO 28 /HPF (0-3)
== END ==
LOC: M SMT 16:39
PROVIDERS: ATTEND Nurse Practitioner Women's Health
DX: N39.0 Urinary tract infection, site not specified (principal)

== ENCOUNTER → 2019-07-05 | Outpatient (CLI) | payer MEDICARE ==
--- NOTE | 2019-07-05 14:47 | REP ---
Two-view chest: 07/05/2019. Indication: Cough. Dyspnea. Comparison: 06/10/2019. Findings: The lungs are clear. There is no pleural effusion or pneumothorax. Cardiac silhouette is unremarkable. Small left lower lobe nodule likely representing granuloma is stable. Impression: There is no evidence of acute cardiopulmonary process. Electronically Signed by Thanh Urrutia DO 07/05/2019 02:39 P
== END ==
LOC: M LRY 13:47
PROVIDERS: ATTEND Physician Assistant
DX: R91.8 Other nonspecific abnormal finding of lung field (principal); R05 Cough
CPT/HCPCS: 71046; 87804; 87880; G0463

== ENCOUNTER → 2019-07-16 | Outpatient (CLI) | payer MEDICARE ==
--- NOTE | 2019-07-20 09:45 | SLEEPCENT ---
DATE OF STUDY: 07/16/2019 ORDERED BY: Dr. Werner Nocturnal polysomnography was performed due to concern for the obstructive sleep apnea syndrome in this patient with a history of snoring and mood disorders. 8 hours and 42 minutes of data were reviewed. There were 336.5 minutes of sleep identified. Sleep latency was prolonged at 67.5 minutes. Rapid eye movement (REM) sleep was delayed at 131 minutes. Sleep architecture was fragmented. There was one REM cycle. Overall sleep efficiency was 65.6%. The patient's electrocardiogram showed a sinus rhythm with an average heart rate of 66 beats per minute. EEG showed normal waveforms for awake and sleep. There were 167 respiratory events identified of 10 seconds in duration or greater for an apnea-hypopnea index of 29.8. The events were obstructive, not exclusive to sleep stage nor body posture. Arousals from respiratory events occurred 15.2 times per hour, and oxygen desaturations were seen into the low 70s. There was also significant activity in the limb leads. Limb movement arousal index was 28.7. IMPRESSION: 1. Obstructive sleep apnea syndrome (G47.33). Apnea-hypopnea index 29.8. 2. Periodic limb movement disorder (G47.61). Limb movement arousal index of 28.7. RECOMMENDATIONS: The patient should be encouraged to return to the sleep disorder center for pressure therapy. In the interim, alcohol and sedative avoidance should be practiced and caution exercised during the operation of motor vehicles. Pending response pressure therapy, interventions to reduce the frequency arousal from limb activity may also be helpful.
== END ==
LOC: M SLEEP 20:00
PROVIDERS: ATTEND Internal Medicine Pulmonary Disease
DX: G47.33 Obstructive sleep apnea (adult) (pediatric) (principal); G47.61 Periodic limb movement disorder

== ENCOUNTER → 2019-07-27 | Outpatient (REF) | payer MEDICARE | LOC: M SMT 13:07 | PROVIDERS: ATTEND Nurse Practitioner Women's Health | DX: N39.0 Urinary tract infection, site not specified (principal) ==

== ENCOUNTER 2019-08-10 12:39 | Day surgery (SDC) | payer MEDICARE ==
[~2019-08-10] VITALS: Ht 167.6 cm; Wt 105.7 kg
[~2019-08-10 12:39] MED LIST changes: +IPRA0.00 INH; +LR 1,000 ML IV ONE; +LevoFLOXacin IV 500 MG in IV 1 EA IV ONE; +PRAV80TA2 PO; +VITA100066 PO
[2019-08-10] MEDS ORDERED: BREO1INH INH (14:08)
[2019-08-10] MEDS ORDERED: ONDANSETRON 4MG/2ML VIAL (J2405) As Ordered ONE ×2 (16:46→20:28)
[2019-08-10] MEDS ORDERED: fentaNYL 100 MCG/2 ML INJECTION (J3010) As Ordered ONE ×2 (16:46→19:23)
[2019-08-10] MEDS ORDERED: METOCLOPRAMIDE INJ 10MG/2ML VIAL (J2765) As Ordered ONE (16:46)
[2019-08-10] MEDS ORDERED: PROPOFOL 200 MG/20 ML VIAL As Ordered ONE (16:46)
[2019-08-10] MEDS ORDERED: LIDOCAINE 2% INJ 100 MG/5 ML SDV (FOR ANES.) As Ordered ONE (16:46)
[2019-08-10] MEDS ORDERED: dexameTHASONE 4 MG/ML 1ML VIAL (J1100) As Ordered ONE (16:46)
[2019-08-10] MEDS ORDERED: MIDAZOLAM INJ 2 MG/2 ML VIAL (J2250) As Ordered ONE (16:47)
[2019-08-10] MEDS ORDERED: CONRAY-60 60% 50ML VIAL (Q9961) As Ordered ONE (18:09)
[2019-08-10] MEDS ORDERED: ACETAMINOPHEN 1000MG 100ML IV BTL (OFIRMEV) (J0131 PER 10MG) As Ordered ONE (18:41)
[2019-08-10] MEDS ORDERED: fentaNYL 100 MCG/2 ML INJECTION (J3010) IV PRN (20:30)
[2019-08-10] MEDS ORDERED: LR 1,000 ML IV SCH (20:30)
[2019-08-10] MEDS ORDERED: ONDANSETRON 4MG/2ML VIAL (J2405) IV PRN (20:30)
[2019-08-10] MEDS ORDERED: METOCLOPRAMIDE INJ 10MG/2ML VIAL (J2765) IV PRN (20:30)
[2019-08-10] MEDS ORDERED: NORCO, ANEXSIA 5/325MG TABLET (HYDROcodone/ACETAMINOPHEN) PO PRN (20:30)
[2019-08-10] MEDS ORDERED: PERCOCET 5MG/325MG TAB PO PRN (20:45)
[2019-08-10 21:39] VITALS: BP 176/74
--- NOTE | 2019-08-11 08:24 | REP ---
Retrograde pyelogram: Two views. History: Nephrolithiasis. Comparison study June 09, 2019. Findings: A sequence of two last image hold fluoroscopically obtained spot radiographs of the abdomen document right ureteral cannulation, contrast injection, and double pigtail stent placement. 40 seconds of fluoroscopy time is reported. Electronically Signed by Narinder Briones MD 08/11/2019 08:15 A
--- NOTE | 2019-08-14 14:59 | RO ---
DATE OF PROCEDURE: 08/10/2019 PREPROCEDURE DIAGNOSES: Right kidney and ureteral stones. POSTPROCEDURE DIAGNOSES: Right kidney and ureteral stones, right ureteral stricture. PROCEDURE: Cystoscopy, Right Ureteroscopy with Laser Lithotripsy and Basket Extraction of Stones, Balloon Dilation of Right Ureteral Stricture, Right Retrograde Pyelogram with Intraoperative Interpretation of Images, Right Ureteral Stent Exchange. SURGEON: Dr. Qamar Stovall ELECTRICIAN YARD: None. ANESTHESIA: General. OPERATIVE INDICATIONS: This is a 79-year-old female who on recent CAT scan was found to have an obstructing approximately 1-cm proximal right ureteral stone, as well as a large stone inside the kidney. She had a right ureteral stent placed a few weeks ago. She is brought to the operating room today for treatment of her stones. DESCRIPTION OF PROCEDURE: The patient brought to the operating room, and general anesthesia was induced. Prophylactic antibiotics were infused. She was then placed in the dorsal lithotomy position and prepped and draped in the usual sterile fashion. There was a cystoscope inserted into the urethral meatus and advanced into the bladder. The previously-placed right ureteral stent was seen. It was grasped and withdrawn until the distal end was seen protruding from the urethral meatus. I advanced a guidewire up the right stent and then removed the stent intact. I then advanced the ureteral access sheath over the wire into the right collecting system. I went up the access sheath with a flexible ureteroscope, and within the proximal ureter, the 1-cm stone was seen. The stone was fragmented into smaller pieces using the 200 micron laser fiber, and then all the fragments were removed using a basket. I then tried to advance the ureteroscope into the right kidney; and of note, there appeared to be a stricture at the ureteropelvic junction (UPJ). A retrograde pyelogram was performed and was notable for moderate right hydronephrosis with no extravasation. I then advanced another wire into the kidney and then advanced a balloon over the wire. The balloon was then utilized to dilate the stricture. When I inflated the balloon, I left it inflated for at least a minute each time. Once I was done dilating the stricture, the balloon and the wire were removed, and I went back in with the ureteroscope, and the UPJ appeared to be more patent. I then advanced the ureteroscope into the kidney, and it was thoroughly examined. There appeared to be an approximately 8-9-mm stone inside the right kidney. The stone was fragmented into smaller pieces using a 200 micron laser fiber. I then examined the kidney thoroughly, and any large fragments were removed using a basket. Once satisfied that all of the stones had been removed, the retrograde pyelogram was performed. It was notable for moderate right hydronephrosis with no extravasation. I then retrieved the ureteroscope along with the access sheath and then utilized the previously-placed wire to advance a 7-Chinese x 22-32-cm double J ureteral stent up into the right collecting system. The wire was removed, and there were adequate curls of the stent in the right renal pelvis and in the bladder. The bladder was then emptied of all fluids. This marked the conclusion of the procedure. The patient was taken out of the dorsal lithotomy position, awakened from anesthesia, and transported to the recovery room in stable condition. ESTIMATED BLOOD LOSS: 5 mL. COMPLICATIONS: None. SPECIMENS: Kidney stone fragments. PLAN: The patient, of note, also has an enhancing mass on her left kidney. She will be undergoing a left robotic partial nephrectomy for that within a few weeks. Will likely remove her right ureteral stent at the time of that procedure. NAMITA
== END 2019-08-10 21:58 | disposition home or self-care (01) ==
LOC: M SDC 12:39
PROVIDERS: ATTEND Urology
DX: N20.2 Calculus of kidney with calculus of ureter (principal); N13.5 Crossing vessel and stricture of ureter without hydronephrosis; N28.89 Other specified disorders of kidney and ureter; E11.9 Type 2 diabetes mellitus without complications; F32.9 Major depressive disorder, single episode, unspecified; E78.5 Hyperlipidemia, unspecified; G47.9 Sleep disorder, unspecified; Z79.899 Other long term (current) drug therapy; Z79.51 Long term (current) use of inhaled steroids; Z96.642 Presence of left artificial hip joint; Z87.891 Personal history of nicotine dependence; Z91.048 Other nonmedicinal substance allergy status
CPT/HCPCS: 52345; 52356; 74420; 82360; 88300; C1769; C2617; J0131; J1100; J1956; J2250; J2405; J2765; J3010; Q9961

== ENCOUNTER → 2019-08-28 | Outpatient (REF) | payer MEDICARE ==
[~2019-08-28] MED LIST changes: +BREO1INH INH; -LR 1,000 ML IV ONE; -LevoFLOXacin IV 500 MG in IV 1 EA IV ONE
[2019-08-28 12:13] LABS: HEMATOCRIT 39.4 % (36.0-47.0); HEMOGLOBIN 12.7 g/dl (12.0-15.5); MEAN CORPUSCULAR HGB CONC 32.2 g/dl (32.0-36.5); PLATELET COUNT, AUTOMATED 322 10^3/uL (150-450); RED BLOOD COUNT 4.38 10^6/uL (4.00-5.40)
[2019-08-28 12:24] LABS: BLOOD UREA NITROGEN 12 MG/DL (7-18); CALCIUM LEVEL 9.5 MG/DL (8.8-10.2); CARBON DIOXIDE LEVEL 28 MEQ/L (21-32); CHLORIDE LEVEL 105 MEQ/L (98-107); GLOMERULAR FILTRATION RATE > 60.0 (>39); GLUCOSE, FASTING 118 MG/DL (70-100); POTASSIUM SERUM 3.8 MEQ/L (3.5-5.1); SODIUM LEVEL 142 MEQ/L (136-145)
[2019-08-28 12:39] LABS: INR 1.05; PROTHROMBIN TIME 13.4 SECONDS (11.8-14.0)
[2019-08-28 12:40] LABS: PARTIAL THROMBOPLASTIN TIME 29.5 SECONDS (25.0-38.4)
== END ==
LOC: M LABSMT 10:54
PROVIDERS: ATTEND Urology
DX: Z01.818 Encounter for other preprocedural examination (principal); N28.89 Other specified disorders of kidney and ureter

== ENCOUNTER 2019-09-05 05:55 | Inpatient (IN) | payer MEDICARE ==
[2019-09-05] VITALS (7 sets, daily range): BP systolic 117–176; BP diastolic 69–86
[~2019-09-05] VITALS: Ht 167.6 cm; Wt 104.8 kg
[~2019-09-05 05:55] MED LIST changes: -LORA1TAB12 PO; +LORA1TAB4 PO
[2019-09-05] MEDS ORDERED: ceFAZolin SOD 2 GM in IV 1 EA IV ONE (06:00)
[2019-09-05] MEDS ORDERED: LR 1,000 ML IV ONE (06:00)
[2019-09-05] MEDS ORDERED: ONDANSETRON 4MG/2ML VIAL (J2405) As Ordered ONE (07:01)
[2019-09-05] MEDS ORDERED: LIDOCAINE 2% INJ 100 MG/5 ML SDV (FOR ANES.) As Ordered ONE (07:01)
[2019-09-05] MEDS ORDERED: dexameTHASONE 4 MG/ML 1ML VIAL (J1100) As Ordered ONE (07:01)
[2019-09-05] MEDS ORDERED: propofoL 200 MG/20 ML VIAL As Ordered ONE ×2 (07:01→08:31)
[2019-09-05] MEDS ORDERED: ROCURONIUM BROMIDE 50 MG/5 ML VIAL As Ordered ONE ×3 (07:01→10:26)
[2019-09-05] MEDS ORDERED: fentaNYL 250 MCG/5 ML INJECTION (J3010) As Ordered ONE (07:06)
[2019-09-05] MEDS ORDERED: MIDAZOLAM INJ 2 MG/2 ML VIAL (J2250) As Ordered ONE (07:06)
[2019-09-05] MEDS ORDERED: LIDOCAINE 1% SDV INJ 30 ML VIAL As Ordered ONE (07:10)
[2019-09-05] MEDS ORDERED: BUPIVACAINE HCL 0.25% 30 ML VIAL As Ordered ONE (07:10)
[2019-09-05] MEDS ORDERED: ACETAMINOPHEN 1000MG 100ML IV BTL (OFIRMEV) (J0131 PER 10MG) As Ordered ONE (07:11)
[2019-09-05] MEDS ORDERED: LACRILUBE (AKWA TEARS) OPHTH OINT 3.5 GM As Ordered ONE (07:11)
[2019-09-05] MEDS ORDERED: NS 1,000 ML IV SCH (07:33)
[2019-09-05] MEDS ORDERED: ALBUTEROL 90 MCG/ACT 8GM HFA INHALER INH PRN (07:45)
[2019-09-05] MEDS ORDERED: LABETALOL HCL 100 MG/20 ML VIAL As Ordered ONE (08:31)
[2019-09-05] MEDS ORDERED: GLYCOPYRROLATE INJ 0.2 MG/ML 2 ML VIAL As Ordered ONE (08:39)
[2019-09-05] MEDS ORDERED: MANNITOL 25% 12.5 GM/50 ML VIAL (J2150) As Ordered ONE (08:44)
[2019-09-05] MEDS ORDERED: hydrALAZINE INJ 20 MG/ML VIAL As Ordered ONE (09:00)
[2019-09-05] MEDS ORDERED: SUGAMMADEX SODIUM 500 MG/5 ML VIAL (BRIDION) As Ordered ONE (09:50)
[2019-09-05] MEDS ORDERED: fentaNYL 100 MCG/2 ML INJECTION (J3010) As Ordered ONE (09:56)
[2019-09-05] MEDS ORDERED: PERCOCET 5MG/325MG TAB PO PRN (11:30)
[2019-09-05] MEDS ORDERED: METOCLOPRAMIDE INJ 10MG/2ML VIAL (J2765) IV PRN (11:30)
[2019-09-05] MEDS ORDERED: fentaNYL 100 MCG/2 ML INJECTION (J3010) IV PRN (11:30)
[2019-09-05] MEDS ORDERED: ONDANSETRON 4MG/2ML VIAL (J2405) IV PRN (11:30)
[2019-09-05] MEDS ORDERED: LR 1,000 ML IV SCH (11:30)
--- NOTE | 2019-09-05 12:09 | ROOPDOC ---
[facility] Report Of Operation Report of Operation DATE OF PROCEDURE: 09/05/19 PREPROCEDURE DIAGNOSES: Left Renal Neoplasm, Kidney Stones. POSTPROCEDURE DIAGNOSES: Left Renal Neoplasm, Kidney Stones. PROCEDURE: Left Robotic-assisted Laparoscopic Partial Nephrectomy with Intraoperative Ultrasound for Tumor Mapping, Cystoscopy, Removal of Right Ureteral Stent. SURGEON: Mellissa Gutierrez MD FILM TOUCH UP INSPECTOR: Aide Vigil NP ANESTHESIA: General OPERATIVE INDICATIONS: This is a 79 year old female with a 4cm enhancing solid left renal neoplasm concerning for malignancy. She also recently had a right ureteroscopy with laser lithotripsy for treatment of kidney stones. She was brought to the operating room today for removal of her left renal neoplasm and her right ureteral stent. DESCRIPTION OF PROCEDURE: The patient was brought to the operating room and general anesthesia was induced. Prophylactic antibiotics were infused. She was the prepped and draped in the usual sterile fashion in the supine position. A flexible cystoscope was inserted into the bladder and the previously placed right ureteral stent was seen. It was then grasped and withdrawn from the right collecting system intact. A Gomes catheter was then placed under sterile conditions. The patient was then placed in the right lateral decubitus position. All pressure points were appropriately padded and an axillary roll was placed. She was secured to the table with tape. The patient was then prepped and draped in the usual sterile fashion. The initial incision was for an 8mm port in line with the 11th rib along the lateral rectus margin. A Veress needle was then utilized to achieve the pneumoperitoneum. An 8mm port was then placed in through this incision and through which the camera was inserted. There were no injuries from Veress needle placement or initial trocar placement. The remaining ports were then placed under vision. The left hand robotic port was placed along the costal margin in line with the camera port. Two right hand robotic ports were placed with one just inferior to the camera port, and the other between the anterior-superior iliac spine and the umbilicus. A 12mm automobile mechanic assistant port was placed in between the camera port and the more cephalad right hand robotic port. The robot was then docked. We started by dissecting the left colon and the spleen off of Gerota's fascia. At this point the left gonadal vein was identified. This was followed cephalad until the left renal vein was encountered. This was carefully dissected and just inferior and posterior to the renal vein, the right renal artery was seen. It was then carefully dissected. Next I had our manager solar administer 12.5g of mannitol. Gerota's fascia was then opened and I defatted the kidney. On the inferior and anterior aspect of the kidney the tumor was seen. It was mostly exophytic. Ultrasound was then utilized to simone the boundaries of the mass. Next 2 bulldog clamps were placed on the renal artery. We then began resecting the mass. The mass was resected completely and it appeared that we had a good margin. Once the mass was removed, the renorrhaphy was performed first by ligating all vessels in the base of resection with a 2-0 vicryl suture using figure of eight stitches. The capsule of the kidney was then reapproximated using # 0 Vicryl suture with Weck clips to cinch down the suture. Once this was done the clamps were removed and hemostasis was excellent. The warm ischemia time was 28 minutes. Next Marissa was applied to the resection bed and the tumor was placed in an endocatch bag. A Rahul Deshpande drain was positioned just medial to the kidney. The robot was undocked after confirming hemostasis within the abdomen. The automobile mechanic assistant port was then extended at the skin level and then at the fascia. The specimen was then removed in the endocatch bag. A Tyler-Rogelio fascial closure device was used to place #0 Vicryl free ties through the fascia of the extraction site. All ports were then removed under direct vision and there was no bleeding from any of the port sites. At this point, all the incisions were thoroughly irrigated. The previously placed #0 Vicryl free ties were tied down. We then closed the skin of each site using a running #4-0 subcuticular Monocryl stitch. The Rahul Deshpande drain was secured to the skin usint #3-0 Ethilon suture. Local anesthetic was then applied to each incision and Dermabond was then applied and this marked the conclusion of the procedure. The patient was then taken out of the left lateral decubitus position, awakened from anesthesia and transported to the recovery room in stable condition. ESTIMATED BLOOD LOSS: 300 mL INTRAOPERATIVE COMPLICATIONS: None SPECIMENS: Left renal neoplasm WARM ISCHEMIA TIME: 28 minutes NORMAL LEFT RENAL PARENCHYMA SPARED: approximately 90% PLAN: The patient will be admitted to the hospital postoperatively and she will be discharged home once her renal function is stable and she is tolerating a regular diet. MELLISSA GUTIERREZ MD Sep 05, 2019 12:09
[2019-09-05 12:20] LABS: HEMATOCRIT 37.8 % (36.0-47.0); HEMOGLOBIN 11.5 g/dl (12.0-15.5); MEAN CORPUSCULAR HEMOGLOBIN 27.8 pg (27.0-33.0); MEAN CORPUSCULAR HGB CONC 30.4 g/dl (32.0-36.5); MEAN CORPUSCULAR VOLUME 91.5 fl (80.0-96.0); PLATELET COUNT, AUTOMATED 292 10^3/uL (150-450); RED BLOOD COUNT 4.13 10^6/uL (4.00-5.40); WHITE BLOOD COUNT 11.2 10^3/uL (4.0-10.0)
[2019-09-05 12:44] LABS: CALCIUM LEVEL 9.1 MG/DL (8.8-10.2); CREATININE FOR GFR 1.11 MG/DL (0.55-1.30); GLOMERULAR FILTRATION RATE 50.7 (>39); POTASSIUM SERUM 4.2 MEQ/L (3.5-5.1)
[2019-09-05] MEDS: PERCOCET 5MG/325MG TAB PO PRN ×3 (14:16→23:27)
[2019-09-05] MEDS: ceFAZolin SOD 1 GM in D5W MINI-BAG PLUS 50 ML IV SCH ×2 (18:28→23:30)
[2019-09-05] MEDS: DOCUSATE SODIUM 100 MG CAP PO SCH ×2 (18:28→20:03)
[2019-09-05] MEDS: DULoxetine 30 MG CAP (CYMBALTA) PO SCH (20:03)
[2019-09-05] MEDS: PRAVASTATIN 20 MG TAB PO SCH (20:03)
[2019-09-06 02:00] VITALS: BP 151/67
[2019-09-06] MEDS: MORPHINE 2 MG/ML 1ML VIAL (J2270) IV PRN ×3 (02:33→18:04)
[2019-09-06 06:00] VITALS: BP 147/81
[2019-09-06 07:05] LABS: HEMATOCRIT 34.1 % (36.0-47.0); HEMOGLOBIN 10.6 g/dl (12.0-15.5); MEAN CORPUSCULAR HEMOGLOBIN 28.6 pg (27.0-33.0); MEAN CORPUSCULAR HGB CONC 31.1 g/dl (32.0-36.5); MEAN CORPUSCULAR VOLUME 91.9 fl (80.0-96.0); PLATELET COUNT, AUTOMATED 304 10^3/uL (150-450); RED BLOOD COUNT 3.71 10^6/uL (4.00-5.40); WHITE BLOOD COUNT 11.1 10^3/uL (4.0-10.0)
[2019-09-06 07:28] LABS: CALCIUM LEVEL 8.3 MG/DL (8.8-10.2); CREATININE FOR GFR 1.2 MG/DL (0.55-1.30); GLOMERULAR FILTRATION RATE 46.4 (>39); POTASSIUM SERUM 4.2 MEQ/L (3.5-5.1)
[2019-09-06] MEDS: DOCUSATE SODIUM 100 MG CAP PO SCH ×2 (08:10→20:42)
[2019-09-06] MEDS: PERCOCET 5MG/325MG TAB PO PRN ×3 (08:10→20:42)
[2019-09-06 10:00] VITALS: BP 104/58
--- NOTE | 2019-09-06 10:18 | IPNPDOC ---
Subjective Review oF Systems Chief Complaint The patient is a 79-year-old female admitted with a reason for visit of Renal Mass, Kidney Stones. Events since Last Encounter No acute events o/n. Good pain control. No n/v. No f/c/ns. Objective Physical Examination General Exam: Alert, Cooperative, No Acute Distress ABDOMEN EXAM: Soft, Tenderness (mild), Other (incisions clean/dry/intact; ALE draining serous fluid) Skin Exam: Nl turgor and temperature Neuro Exam: Normal Speech Psych Exam: Mental status NL, Mood NL Other physical findings catheter draining clear urine Vital Signs/I&O Vital Signs Date Time Temp Pulse Resp B/P (MAP) Pulse Ox O2 Delivery O2 Flow Rate FiO2 09/06/19 08:20 1.0 09/06/19 08:10 16 09/06/19 06:00 97.9 75 147/81 (103) 94 Nasal Cannula I&O- Last 24 Hours up to 6 AM 09/06/19 06:00 Intake Total 3145 ml Output Total 2285 ml Balance 860 ml Laboratory Data Labs 24H Laboratory Tests 2 09/05/19 12:10: Nucleated Red Blood Cells % (auto) 0.0, Anion Gap 6L, Glomerular Filtration Rate 50.7, Calcium Level 9.1 09/06/19 06:48: Nucleated Red Blood Cells % (auto) 0.0, Anion Gap 8, Glomerular Filtration Rate 46.4, Calcium Level 8.3L CBC/BMP Laboratory Tests 09/05/19 12:10 09/06/19 06:48 Assessment/Plan Date Seen The patient was seen on 09/06/19. Patient Summary This is a 79 y/o F POD1 s/p L robotic partial nephrectomy, cystoscopy, and right ureteral stent removal. She is doing well. Good UOP. Hb stable at 10.6. Cr stable at 1.2. Plan/VTE VTE Prophylaxis Ordered?: Yes VTE Exclusion Mechanical Proph: N/A:VTE Prophy Ordered Plan/Urinary Catheter Urinary Catheter: D/C Gomes Plan - d/c catheter - d/c IVF - strict I/Os - percocet prn pain - cont home meds - ambulate - SCDs when in bed - incentive spirometry - wean O2 as tolerated - advance diet as tolerated - anticipate discharge home in 1-2 days MELLISSA GUTIERREZ MD Sep 06, 2019 10:18
[2019-09-06 14:00] VITALS: BP 110/56
[2019-09-06 18:00] VITALS: BP 123/74
[2019-09-06] MEDS: IPRATROPIUM 0.5MG/ALBUTEROL 2.5MG INH SOL UD 3ML (DUONEB)(J7620) NEB PRN (18:16)
[2019-09-06] MEDS: PRAVASTATIN 20 MG TAB PO SCH (20:40)
[2019-09-06] MEDS: DULoxetine 30 MG CAP (CYMBALTA) PO SCH (20:42)
[2019-09-06 22:00] VITALS: BP 157/92; O2SAT 93
[2019-09-07] VITALS (8 sets, daily range): BP systolic 119–180; BP diastolic 47–90; O2SAT 92
[2019-09-07] MEDS: IPRATROPIUM 0.5MG/ALBUTEROL 2.5MG INH SOL UD 3ML (DUONEB)(J7620) NEB PRN ×2 (02:09→15:32)
[2019-09-07] MEDS: PERCOCET 5MG/325MG TAB PO PRN ×2 (02:14→18:03)
[2019-09-07 06:01] LABS: HEMATOCRIT 33.3 % (36.0-47.0); MEAN CORPUSCULAR HEMOGLOBIN 27.8 pg (27.0-33.0); MEAN CORPUSCULAR VOLUME 92.5 fl (80.0-96.0); PLATELET COUNT, AUTOMATED 294 10^3/uL (150-450); WHITE BLOOD COUNT 9.6 10^3/uL (4.0-10.0)
[2019-09-07 06:30] LABS: CALCIUM LEVEL 8.9 MG/DL (8.8-10.2); CREATININE FOR GFR 1.18 MG/DL (0.55-1.30); GLOMERULAR FILTRATION RATE 47.3 (>39); POTASSIUM SERUM 3.5 MEQ/L (3.5-5.1)
--- NOTE | 2019-09-07 07:35 | IPNPDOC ---
Subjective Review oF Systems Chief Complaint The patient is a 79-year-old female admitted with a reason for visit of Renal Mass, Kidney Stones. Events since Last Encounter No acute events o/n. Pain improving. No n/v. Patient ambulated ok yesterday but O2 sats dropped a few times w/ ambulation. No chest pain. No f/c/ns. Objective Physical Examination General Exam: Alert, Cooperative, No Acute Distress ABDOMEN EXAM: Soft, Tenderness (mild), Other (incisions clean/dry/intact; ALE draining serous fluid) Skin Exam: Nl turgor and temperature Neuro Exam: Normal Speech Psych Exam: Mental status NL, Mood NL Vital Signs/I&O Vital Signs Date Time Temp Pulse Resp B/P (MAP) Pulse Ox O2 Delivery O2 Flow Rate FiO2 09/07/19 06:00 99.0 88 20 119/47 (71) 92 NIPPV (BIPAP/CPAP) 09/06/19 22:00 2.0 I&O- Last 24 Hours up to 6 AM 09/07/19 06:00 Intake Total 1790 ml Output Total 80 ml Balance 1710 ml Laboratory Data Labs 24H Laboratory Tests 2 09/07/19 05:38: Nucleated Red Blood Cells % (auto) 0.0, Anion Gap 6L, Glomerular Filtration Rate 47.3, Calcium Level 8.9 CBC/BMP Laboratory Tests 09/07/19 05:38 Assessment/Plan Date Seen The patient was seen on 09/07/19. Patient Summary his is a 79 y/o F POD2 s/p L robotic partial nephrectomy, cystoscopy, and right ureteral stent removal. 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 UOP has been good. Cr stable. Hb stable. Plan/VTE VTE Prophylaxis Ordered?: Yes VTE Exclusion Mechanical Proph: N/A:VTE Prophy Ordered Plan - percocet prn pain - cont home meds - cont to wean O2 as tolerated - PT eval - strict I/Os - SCDs when in bed - ambulate as tolerated - plan for d/c home once weaned off O2 and cleared by PT MELLISSA GUTIERREZ MD Sep 07, 2019 07:35
[2019-09-07] MEDS: DOCUSATE SODIUM 100 MG CAP PO SCH ×2 (08:29→21:55)
[2019-09-07] MEDS: ONDANSETRON 4MG/2ML VIAL (J2405) IV PRN ×2 (11:04→17:07)
[2019-09-07] MEDS: MORPHINE 2 MG/ML 1ML VIAL (J2270) IV PRN (11:19)
[2019-09-07] MEDS ORDERED: METOCLOPRAMIDE INJ 10MG/2ML VIAL (J2765) IV PRN (18:00)
[2019-09-07] MEDS: PRAVASTATIN 20 MG TAB PO SCH (21:55)
[2019-09-07] MEDS: DULoxetine 30 MG CAP (CYMBALTA) PO SCH (21:55)
[2019-09-08] VITALS (7 sets, daily range): BP systolic 135–152; BP diastolic 57–72; O2SAT 92
[2019-09-08] MEDS: IPRATROPIUM 0.5MG/ALBUTEROL 2.5MG INH SOL UD 3ML (DUONEB)(J7620) NEB PRN ×2 (00:25→07:51)
[2019-09-08 06:26] LABS: HEMATOCRIT 31.4 % (36.0-47.0); HEMOGLOBIN 9.7 g/dl (12.0-15.5); MEAN CORPUSCULAR HEMOGLOBIN 28.4 pg (27.0-33.0); MEAN CORPUSCULAR HGB CONC 30.9 g/dl (32.0-36.5); MEAN CORPUSCULAR VOLUME 92.1 fl (80.0-96.0); PLATELET COUNT, AUTOMATED 276 10^3/uL (150-450); RED BLOOD COUNT 3.41 10^6/uL (4.00-5.40); WHITE BLOOD COUNT 8.5 10^3/uL (4.0-10.0)
[2019-09-08 06:47] LABS: BLOOD UREA NITROGEN 9 MG/DL (7-18); CALCIUM LEVEL 8.8 MG/DL (8.8-10.2); CARBON DIOXIDE LEVEL 30 MEQ/L (21-32); CHLORIDE LEVEL 103 MEQ/L (98-107); CREATININE FOR GFR 0.92 MG/DL (0.55-1.30); GLOMERULAR FILTRATION RATE > 60.0 (>39); GLUCOSE, FASTING 123 MG/DL (70-100); POTASSIUM SERUM 3.3 MEQ/L (3.5-5.1); SODIUM LEVEL 139 MEQ/L (136-145)
[2019-09-08] MEDS: DOCUSATE SODIUM 100 MG CAP PO SCH ×2 (08:35→20:20)
[2019-09-08] MEDS: ACETAMINOPHEN TAB 650MG DOSE (2X325MG) PO PRN ×2 (08:36→13:54)
--- NOTE | 2019-09-08 09:08 | IPNPDOC ---
Subjective Review oF Systems Chief Complaint The patient is a 79-year-old female admitted with a reason for visit of Renal Mass, Kidney Stones. Events since Last Encounter No acute events o/n. Patient had a moderate amount of nausea yesterday after trying to ambulate. She feels much better today. Her pain is well controlled. Tolerating diet. No f/c/ns. Objective Physical Examination General Exam: Alert, Cooperative, No Acute Distress ABDOMEN EXAM: Soft, Tenderness (mild), Other (incisions clean/dry/intact; ALE draining serous fluid) Skin Exam: Nl turgor and temperature Neuro Exam: Normal Speech Psych Exam: Mental status NL, Mood NL Vital Signs/I&O Vital Signs Date Time Temp Pulse Resp B/P (MAP) Pulse Ox O2 Delivery O2 Flow Rate FiO2 09/08/19 06:00 98.2 90 21 151/66 (94) 95 Nasal Cannula 1.0 I&O- Last 24 Hours up to 6 AM 09/08/19 06:00 Intake Total 900 ml Output Total 990 ml Balance -90 ml Laboratory Data Labs 24H Laboratory Tests 2 09/08/19 06:05: Nucleated Red Blood Cells % (auto) 0.0, Anion Gap 6L, Glomerular Filtration Rate > 60.0, Calcium Level 8.8 CBC/BMP Laboratory Tests 09/08/19 06:05 Assessment/Plan Date Seen The patient was seen on 09/08/19. Patient Summary This is a 79 y/o F POD3 s/p L robotic partial nephrectomy, cystoscopy, and right ureteral stent removal. She is doing much better this morning. Hb stable. Cr 0.9. Good UOP. Minimal ALE output. Plan/VTE VTE Prophylaxis Ordered?: Yes VTE Exclusion Mechanical Proph: N/A:VTE Prophy Ordered Plan - d/c ALE - percocet prn pain - strict I/Os - continue home meds - SCDs when in bed - ambulate - PT - incentive spirometry - wean O2 - likely discharge home today MELLISSA GUTIERREZ MD Sep 08, 2019 09:08
[2019-09-08] MEDS ORDERED: DOCU100C16 PO (17:38)
[2019-09-08] MEDS ORDERED: PERCOCET PO (17:38)
[2019-09-08] MEDS: PRAVASTATIN 20 MG TAB PO SCH (20:21)
[2019-09-08] MEDS: DULoxetine 30 MG CAP (CYMBALTA) PO SCH (20:21)
[2019-09-09] VITALS (8 sets, daily range): BP systolic 130–158; BP diastolic 60–75; O2SAT 90–91
[2019-09-09 06:20] LABS: HEMATOCRIT 34.8 % (36.0-47.0); HEMOGLOBIN 11.2 g/dl (12.0-15.5); MEAN CORPUSCULAR HEMOGLOBIN 28.9 pg (27.0-33.0); MEAN CORPUSCULAR HGB CONC 32.2 g/dl (32.0-36.5); MEAN CORPUSCULAR VOLUME 89.7 fl (80.0-96.0); RED BLOOD COUNT 3.88 10^6/uL (4.00-5.40); WHITE BLOOD COUNT 9.8 10^3/uL (4.0-10.0)
[2019-09-09 06:33] LABS: PLATELET COUNT, AUTOMATED 398 10^3/uL (150-450)
[2019-09-09 06:43] LABS: CALCIUM LEVEL 9.6 MG/DL (8.8-10.2); CREATININE FOR GFR 1.02 MG/DL (0.55-1.30); GLOMERULAR FILTRATION RATE 55.9 (>39); POTASSIUM SERUM 3.6 MEQ/L (3.5-5.1)
[2019-09-09] MEDS: DOCUSATE SODIUM 100 MG CAP PO SCH ×2 (10:37→20:21)
[2019-09-09] MEDS ORDERED: MYCOLOG CREAM 15 GM (NYSTATIN/TRIAMCINOLONE) TOP SCH (12:45)
--- NOTE | 2019-09-09 12:53 | IPNPDOC ---
Subjective Date Seen The patient was seen on 09/09/19. Subjective Chief Complaint/HPI POD#4 Robatic Partial Nephrectomy Events since last encounter No significant nausea today. Passing gas. No bowel movement. No shortness of breath or need for oxygen when walking halls today. General: Reports: Other Symptoms (Con) Skin: Reports: Rash (left side) Gastrointestinal: Reports: Constipation Objective Physical Examination Other physical findings WD/WN female appearing comfortable sitting in chair with company in the room. No CVAT. Abdomen soft. Wounds healing. Erythema on left flank. No calf tenderness. Assessment /Plan Plan/VTE VTE Prophylaxis Ordered?: Yes VTE Exclusion Mechanical Proph: N/A:VTE Prophy Ordered Plan -Discharge home today if able to walk with Physical Therapy and no shortness of breath -Nystatin/ Triamcinolone cream to left flank irritation -MOM for constipation and can continue as needed as an outpatient VS, I&O, 24H, Fishbone Vital Signs/I&O Vital Signs Date Time Temp Pulse Resp B/P (MAP) Pulse Ox O2 Delivery O2 Flow Rate FiO2 09/09/19 11:25 91 Room Air 09/09/19 10:00 98.1 88 26 142/61 (88) 09/08/19 10:00 1.0 I&O- Last 24 Hours up to 6 AM 09/09/19 06:00 Intake Total 600 ml Output Total 20 ml Balance 580 ml Laboratory Data 24H LABS Laboratory Tests 2 09/09/19 05:54: Nucleated Red Blood Cells % (auto) 0.0, Anion Gap 7L, Glomerular Filtration Rate 55.9, Calcium Level 9.6 CBC/BMP Laboratory Tests 09/09/19 05:54 ALEXIS DE SOUZA MD Sep 09, 2019 12:53
[2019-09-09] MEDS: MOM 30ML SUSPENSION UDC PO PRN ×2 (13:32→19:36)
[2019-09-09] MEDS: PRAVASTATIN 20 MG TAB PO SCH (20:22)
[2019-09-09] MEDS: DULoxetine 30 MG CAP (CYMBALTA) PO SCH (20:22)
[2019-09-10 02:00] VITALS: BP 157/66
[2019-09-10 02:31] VITALS: O2SAT 90
[2019-09-10 06:24] LABS: HEMATOCRIT 31.6 % (36.0-47.0); HEMOGLOBIN 9.7 g/dl (12.0-15.5); MEAN CORPUSCULAR HEMOGLOBIN 27.6 pg (27.0-33.0); MEAN CORPUSCULAR HGB CONC 30.7 g/dl (32.0-36.5); MEAN CORPUSCULAR VOLUME 89.8 fl (80.0-96.0); PLATELET COUNT, AUTOMATED 357 10^3/uL (150-450); RED BLOOD COUNT 3.52 10^6/uL (4.00-5.40); WHITE BLOOD COUNT 9.4 10^3/uL (4.0-10.0)
[2019-09-10 06:44] LABS: BLOOD UREA NITROGEN 10 MG/DL (7-18); CALCIUM LEVEL 8.8 MG/DL (8.8-10.2); CARBON DIOXIDE LEVEL 30 MEQ/L (21-32); CHLORIDE LEVEL 103 MEQ/L (98-107); CREATININE FOR GFR 0.92 MG/DL (0.55-1.30); GLOMERULAR FILTRATION RATE > 60.0 (>39); GLUCOSE, FASTING 119 MG/DL (70-100); POTASSIUM SERUM 3.4 MEQ/L (3.5-5.1); SODIUM LEVEL 140 MEQ/L (136-145)
[2019-09-10] MEDS: DOCUSATE SODIUM 100 MG CAP PO SCH (09:00)
[2019-09-10 10:00] VITALS: BP 146/72; O2SAT 92
--- NOTE | 2019-09-11 10:17 | DSES ---
DATE OF ADMISSION: 09/05/2019 DATE OF DISCHARGE: 09/10/2019 ADMITTING DIAGNOSIS: 1. Left renal neoplasm, kidney stones. DISCHARGE DIAGNOSES: 1. Left renal cell carcinoma, kidney stones, COPD. ADMITTING PHYSICIAN: Dr. Qamar Stovall DISCHARGE PHYSICIAN: Dr. Agustina Dumas. PROCEDURES PERFORMED: Left robotic assisted laparoscopic partial nephrectomy, cystoscopy, removal of right ureteral stent. HISTORY OF PRESENT ILLNESS. This is a 79-year-old female who underwent the above listed procedures on 09/05/2019. She was admitted to the hospital postoperatively. HOSPITALIZATION COURSE: The patient was admitted to the hospital on 09/05/2019 for the above listed procedure. Postoperatively all of her labs remained within acceptable limits. Specifically her hemoglobin level remained stable at 29.7, 10.6. Her serum creatinine remained stable around 0.9. She had good urine output. She had minimal output from the Rahul Deshpande drain. She had pretty good pain control throughout her stay. Postoperative day 1 her catheter was removed and she voided without any difficulty. Her Rahul-Deshpande drain was removed at her hospital stay. Her main issue during her hospital stay was hypoxia and oxygen desaturation with ambulation. Due to this she had became short of breath each time she ambulated for several days. Ultimately, this improved, and we were able to wean her off of supplemental oxygen. At that time she was able to ambulate with physical therapy without having any oxygen desaturation and she maintained her oxygen saturation above 90%. At that time she was deemed safe to be discharged home. She was discharged home with the plan for her to followup in the clinic in a week or two for a postoperative visit. NAMITA
== END 2019-09-10 11:31 | disposition home health service (06) | DRG 658 ==
LOC: M OR 05:55 → M MSPAV 13:07
PROVIDERS: ADMIT Urology; ATTEND Urology
PROC: 8E0W4CZ Robotic Assisted Procedure of Trunk Region, Percutaneous Endoscopic Approach (ICD-10-PCS; 2019-09-05)
PROC: 0TB14ZZ Excision of Left Kidney, Percutaneous Endoscopic Approach (ICD-10-PCS; principal; 2019-09-05 07:30)
PROC: 0TP98DZ Removal of Intraluminal Device from Ureter, Via Natural or Artificial Opening Endoscopic (ICD-10-PCS; 2019-09-05 07:30)
DX: C64.2 Malignant neoplasm of left kidney, except renal pelvis (principal); J44.9 Chronic obstructive pulmonary disease, unspecified; N20.0 Calculus of kidney; Z79.899 Other long term (current) drug therapy; Z79.82 Long term (current) use of aspirin; K21.9 Gastro-esophageal reflux disease without esophagitis; E78.5 Hyperlipidemia, unspecified; F32.9 Major depressive disorder, single episode, unspecified; E11.9 Type 2 diabetes mellitus without complications

== ENCOUNTER 2019-09-19 14:13 | Emergency (ER) | payer MEDICARE ==
[~2019-09-19] VITALS: Ht 167.6 cm; Wt 104.6 kg
[~2019-09-19 14:13] MED LIST changes: +DOCU100C16 PO; -IPRA0.00 INH; +IPRA0.00 NEB; +PERCOCET PO
--- NOTE | 2019-09-19 15:26 | REP ---
CHEST, TWO VIEWS: COMPARISON: 07/05/2019 There is no acute infiltrate. The heart is upper limits of normal in size. There is mild calcification and tortuosity of the thoracic aorta. Calcified granuloma is seen in the lung base laterally. There are mild degenerative changes of the spine. There appears to be osteopenia. IMPRESSION: No acute infiltrate. Electronically Signed by Clifton Cummings MD 09/20/2019 10:25 P
[2019-09-19] MEDS ORDERED: ADVA115A INH (16:17)
[2019-09-19] MEDS ORDERED: IPRATROPIUM 0.5MG/ALBUTEROL 2.5MG INH SOL UD 3ML (DUONEB)(J7620) NEB ONE (16:45)
[2019-09-19] MEDS ORDERED: methylPREDNISolone INJ 125 MG/2 ML VIAL (J2930) IV ONE (16:45)
[2019-09-19] MEDS ORDERED: ALBUTEROL SULFATE 2.5 MG/0.5 ML INH NEB SOLN INH ONE (16:45)
[2019-09-19] MEDS ORDERED: VENTAER INH (16:50)
[2019-09-19] MEDS ORDERED: DOCU100C16 PO (16:50)
[2019-09-19 17:13] LABS: BASO # 0.1 10^3/uL (0.0-0.2); BASO % 0.6 % (0.0-1.0); EOS # 0.5 10^3/uL (0.0-0.5); EOS % 3.6 % (0.0-3.0); HEMATOCRIT 32.7 % (36.0-47.0); HEMOGLOBIN 10.4 g/dl (12.0-15.5); LYMPH # 2.5 10^3/uL (1.5-5.0); LYMPH % 19.4 % (24.0-44.0); MEAN CORPUSCULAR HEMOGLOBIN 28.4 pg (27.0-33.0); MEAN CORPUSCULAR HGB CONC 31.8 g/dl (32.0-36.5); MEAN CORPUSCULAR VOLUME 89.3 fl (80.0-96.0); MONO # 0.9 10^3/uL (0.0-0.8); MONO % 7.1 % (0.0-5.0); NEUTROPHILS % 68.9 % (36.0-66.0); PLATELET COUNT, AUTOMATED 447 10^3/uL (150-450); RED BLOOD COUNT 3.66 10^6/uL (4.00-5.40); WHITE BLOOD COUNT 13.1 10^3/uL (4.0-10.0)
[2019-09-19 17:39] LABS: ALBUMIN 3.4 GM/DL (3.2-5.2); ALT/SGPT 11 U/L (12-78); BILIRUBIN,DIRECT < 0.1 MG/DL (0.0-0.2); BILIRUBIN,TOTAL 0.3 MG/DL (0.2-1.0); BLOOD UREA NITROGEN 10 MG/DL (7-18); CALCIUM LEVEL 9.2 MG/DL (8.8-10.2); CARBON DIOXIDE LEVEL 28 MEQ/L (21-32); CHLORIDE LEVEL 104 MEQ/L (98-107); CREATININE FOR GFR 0.87 MG/DL (0.55-1.30); GLOMERULAR FILTRATION RATE > 60.0 (>39); GLUCOSE, FASTING 99 MG/DL (70-100); POTASSIUM SERUM 3.2 MEQ/L (3.5-5.1); SODIUM LEVEL 137 MEQ/L (136-145); TOTAL PROTEIN 8.6 GM/DL (6.4-8.2)
[2019-09-19 17:46] LABS: INFLUENZA A AMPLIFICATION NEGATIVE (NEGATIVE); INFLUENZA B AMPLIFICATION NEGATIVE (NEGATIVE)
[2019-09-19] MEDS ORDERED: ACETAMINOPHEN 325 MG TAB PO ONE (18:00)
[2019-09-19] MEDS ORDERED: PRED20TA PO (18:42)
[2019-09-19] MEDS ORDERED: DOXY100C37 PO (18:42)
[2019-09-19] MEDS ORDERED: DOXYCYCLINE HYCLATE 100 MG TAB PO ONE (18:45)
[2019-09-19 18:53] VITALS: BP 156/69
== END 2019-09-19 19:34 | disposition home or self-care (01) ==
LOC: M ED 14:13
DX: R50.9 Fever, unspecified (principal); J20.9 Acute bronchitis, unspecified; J44.0 Chronic obstructive pulmonary disease with (acute) lower respiratory infection; E11.9 Type 2 diabetes mellitus without complications; I10 Essential (primary) hypertension; F17.210 Nicotine dependence, cigarettes, uncomplicated; Z79.51 Long term (current) use of inhaled steroids; Z79.899 Other long term (current) drug therapy
CPT/HCPCS: 36415; 71046; 80048; 80076; 81001; 83605; 85025; 87040; 87070; 87205; 87486; 87502; 87581; 87633; 87798; 93041; 94640; 94760; 96374; 99285; J2930

== ENCOUNTER → 2019-10-12 | Outpatient (REF) | payer MEDICARE ==
[~2019-10-12] MED LIST changes: +ADVA115A INH; +DOXY100C37 PO; +PRED20TA PO
[2019-10-12 16:31] LABS: HEMATOCRIT 38.8 % (36.0-47.0); HEMOGLOBIN 11.9 g/dl (12.0-15.5); MEAN CORPUSCULAR HGB CONC 30.7 g/dl (32.0-36.5); MEAN CORPUSCULAR VOLUME 91.3 fl (80.0-96.0); PLATELET COUNT, AUTOMATED 297 10^3/uL (150-450); RED BLOOD COUNT 4.25 10^6/uL (4.00-5.40); WHITE BLOOD COUNT 6.7 10^3/uL (4.0-10.0)
[2019-10-12 16:34] LABS: BLOOD UREA NITROGEN 16 MG/DL (7-18); CALCIUM LEVEL 9.5 MG/DL (8.8-10.2); CARBON DIOXIDE LEVEL 30 MEQ/L (21-32); CHLORIDE LEVEL 107 MEQ/L (98-107); CREATININE FOR GFR 0.87 MG/DL (0.55-1.30); GLOMERULAR FILTRATION RATE > 60.0 (>39); GLUCOSE, FASTING 115 MG/DL (70-100); POTASSIUM SERUM 4.5 MEQ/L (3.5-5.1); SODIUM LEVEL 140 MEQ/L (136-145)
== END ==
LOC: M LABSMT 10:58
PROVIDERS: ATTEND Urology
DX: C64.2 Malignant neoplasm of left kidney, except renal pelvis (principal)

== ENCOUNTER → 2019-10-31 | Outpatient (REF) | payer MEDICARE ==
[2019-10-31 16:39] LABS: CREATININE FOR GFR 0.99 MG/DL (0.55-1.30); GLOMERULAR FILTRATION RATE 57.9 (>39); POTASSIUM SERUM 4.8 MEQ/L (3.5-5.1)
== END ==
LOC: M SFHCLERA 12:01
PROVIDERS: ATTEND Family Medicine
DX: I10 Essential (primary) hypertension (principal)
CPT/HCPCS: 80048; G0463

== ENCOUNTER → 2019-12-21 | Outpatient (REF) | payer MEDICARE ==
[~2019-12-21] MED LIST changes: +CYCL-707 PO; -CYCL10TA PO
[2019-12-21 12:52] LABS: ALBUMIN 4.2 GM/DL (3.2-5.2); BILIRUBIN,TOTAL 0.4 MG/DL (0.2-1.0); CALCIUM LEVEL 9.9 MG/DL (8.8-10.2); CHOLESTEROL RISK RATIO 3.144 (<5); CREATININE FOR GFR 1.03 MG/DL (0.55-1.30); GLOMERULAR FILTRATION RATE 55.3 (>39); POTASSIUM SERUM 4.4 MEQ/L (3.5-5.1); TOTAL PROTEIN 8.2 GM/DL (6.4-8.2)
[2019-12-21 13:16] LABS: MALB URINE SIEMENS 98.8 MG/L
[2019-12-21 13:45] LABS: HEMOGLOBIN A1c 6.9 %
== END ==
LOC: M SFHCLERA 10:52
PROVIDERS: ATTEND Family Medicine
DX: I10 Essential (primary) hypertension (principal); E11.9 Type 2 diabetes mellitus without complications

== ENCOUNTER → 2020-06-07 | Outpatient (REF) | payer MEDICARE ==
[~2020-06-07] MED LIST changes: -ASPI81TA85 PO; +ASPI81TA86 PO
[2020-06-07 14:10] LABS: BLOOD UREA NITROGEN 16 MG/DL (7-18); CALCIUM LEVEL 9.6 MG/DL (8.8-10.2); CARBON DIOXIDE LEVEL 31 MEQ/L (21-32); CHLORIDE LEVEL 108 MEQ/L (98-107); CREATININE FOR GFR 0.91 MG/DL (0.55-1.30); GLOMERULAR FILTRATION RATE > 60.0 (>39); GLUCOSE, FASTING 114 MG/DL (70-100); POTASSIUM SERUM 4.8 MEQ/L (3.5-5.1); SODIUM LEVEL 140 MEQ/L (136-145)
== END ==
LOC: M LABSMT 10:30
PROVIDERS: ATTEND Urology
DX: C64.2 Malignant neoplasm of left kidney, except renal pelvis (principal)

== ENCOUNTER → 2020-06-11 | Outpatient (CLI) | payer MEDICARE ==
[~2020-06-11] MED LIST changes: +ISOVUE-370 76% 100ML VIAL As Ordered ONE
--- NOTE | 2020-06-11 11:15 | REP ---
INDICATION: RENAL CELL CARCINOMA LEFT KIDNEY. COMPARISON: 06/23/2019 TECHNIQUE: Axial contrast-enhanced images of the abdomen using 100 cc Isovue 370 intravenous contrast material with coronal and sagittal reformations. Delayed images of the abdomen obtained. This CT examination was performed using the following dose reduction techniques: Automated exposure control, adjustment of mA and/or kv according to the patient's size, and use of iterative reconstruction technique. FINDINGS: Right kidney includes small nonobstructing intrarenal calculi up to 3 mm. Left kidney includes 1.5 cm and two 5 mm cysts along with evidence for partial nephrectomy along the anterior margin with resection of the previously noted left renal mass. No obvious evidence for recurrence or metastatic disease noted. Liver, spleen, pancreas, gallbladder, and bilateral adrenal glands are normal. Visualized portions of the enteric system demonstrate small hiatal hernia and no evidence for bowel obstruction or obvious acute inflammatory process. No ascites. No free air. No obvious adenopathy. Vasculature is relatively normal. Musculoskeletal structures demonstrate age-related changes without acute osseous abnormality. Lung bases demonstrate chronic emphysematous changes and scarring IMPRESSION: 1. Status post partial left nephrectomy. No evidence for recurrence or obvious metastatic disease. No perinephric inflammatory stranding or adenopathy. Small simple left renal cysts and nonobstructing right renal calculus again noted. 2. Small stable hiatal hernia. <Electronically signed by Kristopher Marion > 06/11/20 1111
== END ==
LOC: M RAD 09:45
PROVIDERS: ATTEND Urology
DX: C64.2 Malignant neoplasm of left kidney, except renal pelvis (principal); Z90.5 Acquired absence of kidney; N28.1 Cyst of kidney, acquired
CPT/HCPCS: 74160; Q9967

== ENCOUNTER → 2020-10-23 | Outpatient (CLI) | payer MEDICARE ==
[~2020-10-23] MED LIST changes: -ISOVUE-370 76% 100ML VIAL As Ordered ONE
== END ==
LOC: M LABSMTC 11:51
PROVIDERS: ATTEND Anesthesiology
DX: Z01.812 Encounter for preprocedural laboratory examination (principal); Z20.822 Contact with and (suspected) exposure to COVID-19

== ENCOUNTER → 2020-10-30 | Outpatient (CLI) | payer MEDICARE ==
[~2020-10-30] MED LIST changes: +BUDE10.7 IH; +CLAR10CA3 PO; +LISI10TA22 PO; +MUCI600T31 PO
== END ==
LOC: M LABSMTC 11:44
PROVIDERS: ATTEND Anesthesiology
DX: Z20.828 Contact with and (suspected) exposure to other viral communicable diseases (principal); Z11.59 Encounter for screening for other viral diseases

== ENCOUNTER 2020-11-04 07:18 | Day surgery (SDC) | payer MEDICARE ==
[~2020-11-04] VITALS: Ht 170.2 cm; Wt 107.0 kg
[~2020-11-04 07:18] MED LIST changes: +CEFUROXIME 1MG/0.1ML INTRACAMERAL INJ As Ordered ONE; +DUOVISC (0.50ML VISCOAT/0.55ML PROVISC) OPHTH KIT As Ordered ONE; +LIDOCAINE 1% MDV 20ML VIAL SQ PRN; +MIDAZOLAM INJ 2MG/2ML VIAL (J2250 PER 1MG) As Ordered ONE; +OFLOXACIN 0.3 % (OCUFLOX) OPTH SOL 5ML OS ONE; +PHENYLEPHRINE 2.5% OPHTH SOL 2ML OS ONE; +POVIDONE-IODINE 5% OPHTH PREP SOL 30ML As Ordered ONE; +PROPARACAINE 0.5% OPHTH SOL 15ML OS ONE; +TROPICAMIDE 1% OPHTH SOLN 2ML OS ONE; +fentaNYL 100 MCG/2 ML INJECTION (J3010) As Ordered ONE
[2020-11-04] MEDS ORDERED: BSS IRR 500ML/OMIDRIA 4ML IRR BAG (OR ONLY) As Ordered ONE (09:14)
[2020-11-04] MEDS ORDERED: ONDANSETRON 4MG/2ML VIAL As Ordered ONE (09:44)
[2020-11-04 10:04] VITALS: BP 162/67
--- NOTE | 2020-11-05 10:16 | RO ---
OPERATIVE NOTE DATE OF OPERATION: 11/04/2020 PREOPERATIVE DIAGNOSIS: 1. Visually significant dense nuclear sclerotic cataract, left eye. POSTOPERATIVE DIAGNOSIS: 1. Visually significant dense nuclear sclerotic cataract, left eye. PROCEDURE: 1. Extracapsular cataract extraction with insertion of intraocular lens, [id number], 30.0 D, left eye. SURGEON: Freeman Potter DO ANESTHESIA: Local (Omidria with MAC) COMPLICATIONS: None POSTOPERATIVE CONDITION: Stable INDICATIONS FOR SURGERY: 1. Blurred vision affecting patient's activities of daily living. DESCRIPTION OF PROCEDURE: The patient was seen in the preoperative area and properly identified. The correct operative eye was identified and marked. The patient received topical anesthetic, antibiotics, and topical dilating drops. The patient was then transferred to the operating room. The correct side was re-identified and a time-out was performed. The eye was prepped and draped in a sterile fashion. The eyelids were isolated with Tegaderm tape and the lids were held open with an adjustable speculum. A 1.0mm paracentesis incision was made. Omidria was then injected into the anterior chamber. Viscoelastic was then injected into the anterior chamber through the paracentesis. Using a 2.4mm sharp-tipped keratome, the anterior chamber was entered via a temporal clear cornea incision. A continuous curvilinear capsulorrhexis was created with Utrata forceps. Hydrodissection was performed with BSS on a blunt cannula until the nucleus was able to rotate freely. The crystalline lens was phacoemulsified and aspirated. Irrigation/aspiration was used to remove the cortical material Cohesive viscoelastic was placed into the capsular bag to deepen it. The implant was placed into the capsular bag and allowed to unfold. Placement was confirmed by visualizing the anterior capsulorrhexis. Irrigation/aspiration was used to remove the viscoelastic. The clear corneal incision was hydrated with BSS on a blunt cannula. The lens was well positioned. Intracameral antibiotic was injected into the anterior chamber. The incisions were then tested for leaks and found to be negative. The eye was then palpated for appropriate pressure and adjusted accordingly with BSS. The eyelid speculum was then carefully removed. A shield was placed over the eye. The patient tolerated the procedure well and was discharge to the recovery unit in a stable condition.
== END 2020-11-04 10:40 | disposition home or self-care (01) ==
LOC: M SDC 07:18
PROVIDERS: ATTEND Ophthalmology
DX: H25.12 Age-related nuclear cataract, left eye (principal); I10 Essential (primary) hypertension; E78.5 Hyperlipidemia, unspecified; Z87.891 Personal history of nicotine dependence; F41.9 Anxiety disorder, unspecified; F32.9 Major depressive disorder, single episode, unspecified; J44.9 Chronic obstructive pulmonary disease, unspecified; G47.30 Sleep apnea, unspecified; Z79.899 Other long term (current) drug therapy
CPT/HCPCS: 66984; J1097; J2250; J2405; J3010; V2632

== ENCOUNTER → 2020-11-30 | Outpatient (CLI) | payer MEDICARE ==
[~2020-11-30] MED LIST changes: -BUDE10.7 IH; +BUDE10.7 INH; -CEFUROXIME 1MG/0.1ML INTRACAMERAL INJ As Ordered ONE; -DUOVISC (0.50ML VISCOAT/0.55ML PROVISC) OPHTH KIT As Ordered ONE; -LIDOCAINE 1% MDV 20ML VIAL SQ PRN; -MIDAZOLAM INJ 2MG/2ML VIAL (J2250 PER 1MG) As Ordered ONE; -OFLOXACIN 0.3 % (OCUFLOX) OPTH SOL 5ML OS ONE; -PHENYLEPHRINE 2.5% OPHTH SOL 2ML OS ONE; -POVIDONE-IODINE 5% OPHTH PREP SOL 30ML As Ordered ONE; -PROPARACAINE 0.5% OPHTH SOL 15ML OS ONE; -TROPICAMIDE 1% OPHTH SOLN 2ML OS ONE; +ZOFR4TAB16 PO; -fentaNYL 100 MCG/2 ML INJECTION (J3010) As Ordered ONE
== END ==
LOC: M LABSMTC 11:56
PROVIDERS: ATTEND Anesthesiology
DX: Z20.828 Contact with and (suspected) exposure to other viral communicable diseases (principal); Z11.59 Encounter for screening for other viral diseases

== ENCOUNTER 2020-12-05 08:00 | Day surgery (SDC) | payer MEDICARE ==
[~2020-12-05] VITALS: Ht 167.6 cm; Wt 107.4 kg
[~2020-12-05 08:00] MED LIST changes: +CEFUROXIME 1MG/0.1ML INTRACAMERAL INJ As Ordered ONE; +DUOVISC (0.50ML VISCOAT/0.55ML PROVISC) OPHTH KIT As Ordered ONE; +MIDAZOLAM INJ 2MG/2ML VIAL (J2250 PER 1MG) As Ordered ONE; +OFLOXACIN 0.3 % (OCUFLOX) OPTH SOL 5ML OD ONE; +PHENYLEPHRINE 2.5% OPHTH SOL 2ML OD ONE; +POVIDONE-IODINE 5% OPHTH PREP SOL 30ML As Ordered ONE; +PROPARACAINE 0.5% OPHTH SOL 15ML OD ONE; +TROPICAMIDE 1% OPHTH SOLN 2ML OD ONE; +fentaNYL 100 MCG/2 ML INJECTION (J3010) As Ordered ONE
[2020-12-05] MEDS ORDERED: BSS IRR 500ML/OMIDRIA 4ML IRR BAG (OR ONLY) As Ordered ONE (09:15)
[2020-12-05] MEDS ORDERED: CEFUROXIME 1MG/0.1ML INTRACAMERAL INJ As Ordered ONE (09:38)
[2020-12-05] MEDS ORDERED: ONDANSETRON 4MG/2ML VIAL As Ordered ONE (09:43)
[2020-12-05 10:15] VITALS: BP 132/60
--- NOTE | 2020-12-06 08:12 | RO ---
OPERATIVE NOTE DATE OF OPERATION: 12/05/2020 PREOPERATIVE DIAGNOSIS: 1. Visually significant nuclear sclerotic cataract, right eye. POSTOPERATIVE DIAGNOSIS: 1. Visually significant nuclear sclerotic cataract, right eye. PROCEDURE: 1. Cataract extraction with use of phacoemulsification, and placement of intraocular lens, AU00T0, 29.5 D, right eye. SURGEON: Freeman Potter DO ANESTHESIA: Local (Omidria with MAC) COMPLICATIONS: None POSTOPERATIVE CONDITION: Stable INDICATIONS FOR SURGERY: 1. Blurred vision affecting patient's activities of daily living. DESCRIPTION OF PROCEDURE: The patient was seen in the preoperative area and properly identified. The correct operative eye was identified and marked. The patient received topical anesthetic, antibiotics, and topical dilating drops. The patient was then transferred to the operating room. The correct side was re-identified and a time-out was performed. The eye was prepped and draped in a sterile fashion. The eyelids were isolated with Tegaderm tape and the lids were held open with an adjustable speculum. A 1.0mm paracentesis incision was made. Omidria was then injected into the anterior chamber. Viscoelastic was then injected into the anterior chamber through the paracentesis. Using a 2.4mm sharp-tipped keratome, the anterior chamber was entered via a temporal clear cornea incision. A continuous curvilinear capsulorrhexis was created with Utrata forceps. Hydrodissection was performed with BSS on a blunt cannula until the nucleus was able to rotate freely. The crystalline lens was phacoemulsified and aspirated. Irrigation/aspiration was used to remove the cortical material Cohesive viscoelastic was placed into the capsular bag to deepen it. The implant was placed into the capsular bag and allowed to unfold. Placement was confirmed by visualizing the anterior capsulorrhexis. Irrigation/aspiration was used to remove the viscoelastic. The clear corneal incision was hydrated with BSS on a blunt cannula. The lens was well positioned. Intracameral antibiotic was injected into the anterior chamber. The incisions were then tested for leaks and found to be negative. The eye was then palpated for appropriate pressure and adjusted accordingly with BSS. The eyelid speculum was then carefully removed. A shield was placed over the eye. The patient tolerated the procedure well and was discharge to the recovery unit in a stable condition.
== END 2020-12-05 10:55 | disposition home or self-care (01) ==
LOC: M SDC 08:00
PROVIDERS: ATTEND Ophthalmology
DX: H25.11 Age-related nuclear cataract, right eye (principal); I10 Essential (primary) hypertension; E78.5 Hyperlipidemia, unspecified; M10.9 Gout, unspecified; J44.9 Chronic obstructive pulmonary disease, unspecified; G47.33 Obstructive sleep apnea (adult) (pediatric); F41.9 Anxiety disorder, unspecified; F32.9 Major depressive disorder, single episode, unspecified; Z79.899 Other long term (current) drug therapy; Z85.528 Personal history of other malignant neoplasm of kidney
CPT/HCPCS: 66984; J1097; J2250; J2405; J3010; V2632

== ENCOUNTER → 2021-02-17 | Outpatient (CLI) | payer MEDICARE ==
[~2021-02-17] MED LIST changes: -CEFUROXIME 1MG/0.1ML INTRACAMERAL INJ As Ordered ONE; -DOXY100C37 PO; +DOXY1CAP62 PO; -DUOVISC (0.50ML VISCOAT/0.55ML PROVISC) OPHTH KIT As Ordered ONE; -MIDAZOLAM INJ 2MG/2ML VIAL (J2250 PER 1MG) As Ordered ONE; -OFLOXACIN 0.3 % (OCUFLOX) OPTH SOL 5ML OD ONE; -PHENYLEPHRINE 2.5% OPHTH SOL 2ML OD ONE; -POVIDONE-IODINE 5% OPHTH PREP SOL 30ML As Ordered ONE; -PROPARACAINE 0.5% OPHTH SOL 15ML OD ONE; -TROPICAMIDE 1% OPHTH SOLN 2ML OD ONE; -fentaNYL 100 MCG/2 ML INJECTION (J3010) As Ordered ONE
--- NOTE | 2021-02-17 15:32 | REP ---
INDICATION: PVD COMPARISON: None. TECHNIQUE: Real time hill scale and color Doppler evaluation of the bilateral lower extremity arterial vasculature using linear high frequency transducer. FINDINGS: Moderate amounts of partially calcified atheromatous plaquing noted bilaterally. No focal area of stenosis or occlusion is identified. Right lower extremity demonstrates primarily triphasic and biphasic arterial wave patterns with monophasic wave patterns noted in the proximal posterior tibial artery and distal anterior tibial artery. Right MISA: 1.3. Left lower extremity demonstrates triphasic and biphasic wave patterns. Left MISA: 1.0. Peak systolic velocities (cm/sec) Common femoral artery: Right 166; Left 160 Profunda femoris: Right 147; Left 78 SFA (proximal): Right 163; Left 126 SFA (mid): Right 110; Left 93 SFA (distal): Right 90; Left 104 Popliteal artery: Right 77; Left 81 POONAM (prox.): Right 100; Left 89 Tibioperoneal trunk: Right 52; Left not visualized HVAC SERVICE TECH (prox.): Right 20; Left 34 HVAC SERVICE TECH (distal): Right 69; Left 61 POONAM (distal): Right 19; Left 98 IMPRESSION: Atheromatous changes with areas of narrowing but no obvious focal occlusion or stenosis. <Electronically signed by Kristopher Marion > 02/17/21 [id number]
== END ==
LOC: M RAD 13:25
PROVIDERS: ATTEND Family Medicine
DX: I73.9 Peripheral vascular disease, unspecified (principal)

== ENCOUNTER → 2021-07-09 | Outpatient (CLI) | payer MEDICARE ==
[~2021-07-09] MED LIST changes: +DOXY-443 PO; -DOXY1CAP62 PO
== END ==
LOC: M RAD 13:23
PROVIDERS: ATTEND Urology
DX: Z53.20 Procedure and treatment not carried out because of patient's decision for unspecified reasons (principal)

== ENCOUNTER → 2021-07-14 | Outpatient (CLI) | payer MEDICARE ==
[2021-07-14 14:18] LABS: CALCIUM LEVEL 9.8 MG/DL (8.8-10.2); CREATININE FOR GFR 1.02 MG/DL (0.55-1.30); GLOMERULAR FILTRATION RATE 55.7 (>39); POTASSIUM SERUM 4.8 MEQ/L (3.5-5.1)
== END ==
LOC: M WUC 10:31
PROVIDERS: ATTEND Urology
DX: C64.2 Malignant neoplasm of left kidney, except renal pelvis (principal)

== ENCOUNTER → 2021-07-14 | Outpatient (CLI) | payer MEDICARE ==
[2021-07-14 14:21] LABS: CHOLESTEROL RISK RATIO 3.166 (<5)
[2021-07-14 14:31] LABS: CREATININE, URINE 72.2 MG/DL; CREATININE,RANDOM URINE 72.2 MG/DL; MALB URINE SIEMENS 87.9 MG/L; MAU/CREAT RATIO 121.7 MCG/MG (0.0-30.0)
[2021-07-14 15:14] LABS: HEMOGLOBIN A1c 6.8 %
== END ==
LOC: M WUC 10:29
PROVIDERS: ATTEND Student in an Organized Health Care Education/Training Program
DX: E11.9 Type 2 diabetes mellitus without complications (principal)

== ENCOUNTER → 2021-08-06 | Outpatient (CLI) | payer MEDICARE ==
[~2021-08-06] MED LIST changes: +GASTROGRAFIN SOLUTION 30ML (Q9963) ONE; +ISOVUE-370 76% 100ML VIAL ONE
--- NOTE | 2021-08-06 16:28 | REP ---
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 COMPARISON: Multiple the latest 06/11/2020 TECHNIQUE: Standard helical technique after the intravenous administration of 100 cc Isovue 370. Oral bowel preparatory contrast was administered prior to the exam. FINDINGS: There is no change in the lung bases. The liver, gallbladder, spleen, pancreas, adrenal glands, and kidneys are unchanged. 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 The abdominal aorta and para-aortic regions are unchanged. There is no adenopathy. There is no significant change in the appearance of the bowel loops or the mesenteries. There is colonic diverticulosis status quo. There is no evidence of a mass or adenopathy. Bone window technique throughout the examination shows the osseous structures to be stable. There are spinal degenerative changes and discogenic changes status quo. IMPRESSION: There is no evidence of acute disease. Findings as described above. <Electronically signed by Rommel Tucker > 08/06/21 [id number]
== END ==
LOC: M PLAIMG 13:08
PROVIDERS: ATTEND Urology
DX: C64.2 Malignant neoplasm of left kidney, except renal pelvis (principal)
CPT/HCPCS: 71046; 74177; Q9963; Q9967

== ENCOUNTER → 2021-08-06 | Outpatient (CLI) | payer MEDICARE ==
[~2021-08-06] MED LIST changes: -GASTROGRAFIN SOLUTION 30ML (Q9963) ONE; -ISOVUE-370 76% 100ML VIAL ONE
--- NOTE | 2021-08-06 15:52 | REP ---
INDICATION: MALIGNANT NEOPLASM OF LEFT KIDNEY, EXCEPT RENAL PELVIS COMPARISON: 09/19/2019 TECHNIQUE: PA and lateral. FINDINGS: The mediastinum and cardiac silhouette are normal. The lung nguyen are clear and without acute consolidation, effusion, or pneumothorax. The skeletal structures are intact and normal. IMPRESSION: No acute cardiopulmonary process. <Electronically signed by Kristopher Marion > 08/06/21 [id number]
== END ==
LOC: M PLAIMG 14:59
PROVIDERS: ATTEND Urology
DX: C64.2 Malignant neoplasm of left kidney, except renal pelvis (principal)

== ENCOUNTER → 2021-08-22 | Outpatient (CLI) | payer MEDICARE ==
--- NOTE | 2021-08-22 13:43 | REP ---
INDICATION: CALCULUS OF KIDNEY COMPARISON: None. TECHNIQUE: Supine views of the abdomen and pelvis. FINDINGS: There is a suspected staghorn calculus in the right kidney measuring greater than 2.6 cm. Further evaluation of the urinary tract system is limited due to overlying bowel gas. Bowel gas pattern is nonspecific and without obstruction or perforation. No organomegaly. Skeletal structures intact. IMPRESSION: 1. 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 <Electronically signed by Kristopher Marion > 08/22/21 [id number]
== END ==
LOC: M RAD 13:03
PROVIDERS: ATTEND Urology
DX: N20.0 Calculus of kidney (principal)

== ENCOUNTER → 2021-09-17 | Outpatient (CLI) | payer MEDICARE ==
[~2021-09-17] MED LIST changes: +BACTDSTA PO; +BIOT10TA2 PO; +CALC500C16 PO; +COLA100C5 PO; +CVS1CAP5 PO; +ONDA-83 PO; +POTA10CA32 PO; +SYMB16INH INH; +ZINC1TAB2 PO
[2021-09-17 11:10] LABS: HEMATOCRIT 41.5 % (36.0-47.0); HEMOGLOBIN 13.1 g/dl (12.0-15.5); MEAN CORPUSCULAR HEMOGLOBIN 29.1 pg (27.0-33.0); MEAN CORPUSCULAR HGB CONC 31.6 g/dl (32.0-36.5); MEAN CORPUSCULAR VOLUME 92.2 fl (80.0-96.0); PLATELET COUNT, AUTOMATED 340 10^3/uL (150-450)
[2021-09-17 11:50] LABS: BLOOD UREA NITROGEN 16 MG/DL (7-18); CALCIUM LEVEL 10.1 MG/DL (8.8-10.2); CARBON DIOXIDE LEVEL 26 MEQ/L (21-32); CHLORIDE LEVEL 108 MEQ/L (98-107); CREATININE FOR GFR 0.92 MG/DL (0.55-1.30); GLOMERULAR FILTRATION RATE > 60.0 (>39); GLUCOSE, FASTING 127 MG/DL (70-100); POTASSIUM SERUM 4.2 MEQ/L (3.5-5.1); SODIUM LEVEL 140 MEQ/L (136-145)
== END ==
LOC: M RAD 10:10
PROVIDERS: ATTEND Urology
DX: Z01.818 Encounter for other preprocedural examination (principal); N20.0 Calculus of kidney; N39.0 Urinary tract infection, site not specified
CPT/HCPCS: 36415; 71046; 80048; 85027; 93005; G0463

== ENCOUNTER → 2021-09-23 | Outpatient (REF) | payer MEDICARE ==
[~2021-09-23] MED LIST changes: -BACTDSTA PO; -BIOT10TA2 PO; -CALC500C16 PO; -COLA100C5 PO; -CVS1CAP5 PO; -POTA10CA32 PO; -SYMB16INH INH; -ZINC1TAB2 PO
== END ==
LOC: M SMT 13:22
PROVIDERS: ATTEND Urology
DX: Z01.818 Encounter for other preprocedural examination (principal)

== ENCOUNTER → 2021-09-26 | Outpatient (CLI) | payer MEDICARE ==
[~2021-09-26] MED LIST changes: +BIOT10TA2 PO; +CALC500C16 PO; +CVS1CAP5 PO; +SYMB16INH INH; +ZINC1TAB2 PO
== END ==
LOC: M LABSMTC 12:08
PROVIDERS: ATTEND Anesthesiology
DX: Z01.818 Encounter for other preprocedural examination (principal); Z11.52 Encounter for screening for COVID-19

== ENCOUNTER → 2021-09-29 | Outpatient (CLI) | payer MEDICARE ==
[~2021-09-29] MED LIST changes: +BACTDSTA PO; +COLA100C5 PO; +ISOVUE-300 61% 50ML VIAL As Ordered ONE; +LIDOCAINE 1% MDV 20ML VIAL As Ordered ONE; +MIDAZOLAM INJ 2MG/2ML VIAL (J2250 PER 1MG) As Ordered ONE; +NS 1,000 ML IV SCH; +POTA10CA32 PO; +ceFAZolin 2 GM/D5W 50 ML IV BAG (J0690 PER 500MG) As Ordered ONE; +ceFAZolin SOD 2 GM in D5W MINI-BAG PLUS 50 ML IV ONE; +ceFAZolin SOD 2 GM in IV 1 EA IV ONE; +diphenhydrAMINE 50MG/ML VIAL (J1200) As Ordered ONE; +fentaNYL 100 MCG/2 ML INJECTION As Ordered ONE
[2021-09-29 16:00] VITALS: BP 136/66
== END ==
LOC: M IRPRO 11:00
PROVIDERS: ATTEND Radiology Diagnostic Radiology
DX: N20.0 Calculus of kidney (principal); Z79.899 Other long term (current) drug therapy

== ENCOUNTER → 2021-10-21 | Outpatient (CLI) | payer MEDICARE ==
[~2021-10-21] MED LIST changes: -ISOVUE-300 61% 50ML VIAL As Ordered ONE; -LIDOCAINE 1% MDV 20ML VIAL As Ordered ONE; -MIDAZOLAM INJ 2MG/2ML VIAL (J2250 PER 1MG) As Ordered ONE; -NS 1,000 ML IV SCH; -ceFAZolin 2 GM/D5W 50 ML IV BAG (J0690 PER 500MG) As Ordered ONE; -ceFAZolin SOD 2 GM in D5W MINI-BAG PLUS 50 ML IV ONE; -ceFAZolin SOD 2 GM in IV 1 EA IV ONE; -diphenhydrAMINE 50MG/ML VIAL (J1200) As Ordered ONE; -fentaNYL 100 MCG/2 ML INJECTION As Ordered ONE
[2021-10-21 16:58] LABS: APPEARANCE, URINE CLOUDY (CLEAR); BACTERIA, URINE AUTO 3+ (NEGATIVE); BILIRUBIN, URINE AUTO NEGATIVE (NEGATIVE); BLOOD, URINE BLOOD 1+ (NEGATIVE); COLOR, URINE YELLOW (YELLOW); GLUCOSE, URINE (UA) AUTO NEGATIVE (NEGATIVE); KETONE, URINE AUTO NEGATIVE (NEGATIVE); LEUKOCYTE ESTERASE, URINE AUTO 3+ (NEGATIVE); NITRITE, URINE AUTO POSITIVE (NEGATIVE); PROTEIN, URINE AUTO 1+ mg/dL (NEGATIVE); RBC, URINE AUTO 37 /HPF (0-3); SPECIFIC GRAVITY URINE AUTO 1.014 (1.002-1.035); SQUAMOUS EPITHELIAL CELL UR AU 0 /HPF (0-6); UROBILINOGEN, URINE AUTO 0.2 mg/dL (0.0-2.0); WBC, URINE AUTO TNTC /HPF (0-3)
== END ==
LOC: M PLAIMG 13:25
PROVIDERS: ATTEND Urology
DX: N20.0 Calculus of kidney (principal); N39.0 Urinary tract infection, site not specified

== ENCOUNTER → 2022-01-12 | Outpatient (REF) | payer MEDICARE | LOC: M SFHCLERA 15:37 | PROVIDERS: ATTEND Nurse Practitioner Family | DX: R05.9 Cough, unspecified (principal) ==

== ENCOUNTER → 2022-04-13 | Outpatient (CLI) | payer MEDICARE ==
[~2022-04-13] MED LIST changes: +LEVO1TAB40 PO; -LEVO750T13 PO
== END ==
LOC: M PLAIMG 13:16
PROVIDERS: ATTEND Urology
DX: N20.0 Calculus of kidney (principal)

== ENCOUNTER → 2022-06-29 | Outpatient (REF) | payer MEDICARE ==
[2022-06-29 22:17] LABS: APPEARANCE, URINE MANUAL HAZY (CLEAR); COLOR, URINE MANUAL YELLOW (YELLOW)
[2022-06-29 22:18] LABS: BILIRUBIN, URINE MANUAL NEGATIVE (NEGATIVE); BLOOD URINE MANUAL TRACE (NEGATIVE); GLUCOSE, URINE (UA) MANUAL NEGATIVE (NEGATIVE); KETONE, URINE MANUAL NEGATIVE (NEGATIVE); LEUKOCYTE ESTERASE, URINE MAN POSITIVE (NEGATIVE); NITRITE, URINE MANUAL POSITIVE (NEGATIVE); PROTEIN, URINE MANUAL NEGATIVE (NEGATIVE); UROBILINOGEN, URINE MANUAL NORMAL (NORMAL)
[2022-06-29 22:31] LABS: WBC, URINE 40-50 /hpf (0-3)
[2022-06-29 22:32] LABS: BACTERIA, URINE LARGE AMOUNT; HYALINE CAST, URINE NONE SEEN /lpf (0-1); SQUAMOUS EPITHELIAL CELL URINE SMALL AMOUNT /hpf (SMALL AMT)
== END ==
LOC: M LAB REF 21:49
PROVIDERS: ATTEND Physician Assistant Medical
DX: N39.0 Urinary tract infection, site not specified (principal)

== ENCOUNTER → 2022-11-04 | Outpatient (CLI) | payer MEDICARE ==
[~2022-11-04] MED LIST changes: -POTA10CA32 PO; +POTA10CA33 PO
[2022-11-04 15:59] LABS: BLOOD UREA NITROGEN 14 MG/DL (9-23); CALCIUM LEVEL 9.7 MG/DL (8.3-10.6); CARBON DIOXIDE LEVEL 29 MMOL/L (20-31); CHLORIDE LEVEL 103 MMOL/L (98-107); CREATININE FOR GFR 0.82 MG/DL (0.55-1.30); GLOMERULAR FILTRATION RATE > 60.0 (>32); GLUCOSE, FASTING 162 MG/DL (74-106); POTASSIUM SERUM 4.4 MMOL/L (3.5-5.1); SODIUM LEVEL 140 MMOL/L (136-145)
== END ==
LOC: M PLALAB 14:20
PROVIDERS: ATTEND Urology
DX: C64.2 Malignant neoplasm of left kidney, except renal pelvis (principal)

== ENCOUNTER → 2022-11-30 | Outpatient (CLI) | payer MEDICARE ==
[~2022-11-30] MED LIST changes: +ISOVUE-370 76% 100ML VIAL As Ordered ONE
== END ==
LOC: M RAD 09:29
PROVIDERS: ATTEND Urology
DX: C64.2 Malignant neoplasm of left kidney, except renal pelvis (principal)
CPT/HCPCS: 74170; Q9967

== ENCOUNTER 2022-12-03 11:32 | Emergency (ER) | payer MEDICARE ==
[~2022-12-03] VITALS: Ht 170.2 cm; Wt 106.4 kg
[~2022-12-03 11:32] MED LIST changes: -ISOVUE-370 76% 100ML VIAL As Ordered ONE
[2022-12-03] MEDS ORDERED: ACETAMINOPHEN 500 MG TAB PO ONE (12:40)
[2022-12-03 13:06] LABS: BLOOD UREA NITROGEN 10 MG/DL (9-23); CALCIUM LEVEL 8.5 MG/DL (8.3-10.6); CARBON DIOXIDE LEVEL 27 MMOL/L (20-31); CHLORIDE LEVEL 106 MMOL/L (98-107); CREATININE FOR GFR 0.86 MG/DL (0.55-1.30); GLOMERULAR FILTRATION RATE > 60.0 (>32); GLUCOSE, FASTING 120 MG/DL (74-106); POTASSIUM SERUM 4.1 MMOL/L (3.5-5.1); SODIUM LEVEL 139 MMOL/L (136-145)
[2022-12-03] MEDS ORDERED: PRED20TA PO (14:48)
[2022-12-03 15:44] VITALS: BP 146/65
[2022-12-03] MEDS ORDERED: NIRMATRELVIR/RITONAVIR CO-PACK (EMERGENCY USE AUTH) PO SCH (21:00)
== END 2022-12-03 15:48 | disposition home or self-care (01) ==
LOC: M ED 11:32
DX: U07.1 COVID-19 (principal); I10 Essential (primary) hypertension; E78.5 Hyperlipidemia, unspecified; J44.9 Chronic obstructive pulmonary disease, unspecified; C64.9 Malignant neoplasm of unspecified kidney, except renal pelvis; Z87.891 Personal history of nicotine dependence; Z79.52 Long term (current) use of systemic steroids; Z79.811 Long term (current) use of aromatase inhibitors; Z79.83 Long term (current) use of bisphosphonates; Z79.899 Other long term (current) drug therapy

== ENCOUNTER → 2022-12-21 | Outpatient (REF) | payer MEDICARE | LOC: M LABSMT 15:02 | PROVIDERS: ATTEND Urology | DX: Z01.818 Encounter for other preprocedural examination (principal); C64.2 Malignant neoplasm of left kidney, except renal pelvis ==

== ENCOUNTER → 2023-01-04 | Outpatient (CLI) | payer MEDICARE ==
[~2023-01-04] MED LIST changes: +LORA1TAB23 PO; -LORA1TAB4 PO
[2023-01-04 12:26] LABS: HEMATOCRIT 38.9 % (36.0-47.0); HEMOGLOBIN 12.7 g/dl (12.0-15.5); MEAN CORPUSCULAR HEMOGLOBIN 29.9 pg (27.0-33.0); MEAN CORPUSCULAR HGB CONC 32.6 g/dl (32.0-36.5); MEAN CORPUSCULAR VOLUME 91.5 fl (80.0-96.0); PLATELET COUNT, AUTOMATED 248 10^3/uL (150-450); RED BLOOD COUNT 4.25 10^6/uL (4.00-5.40); WHITE BLOOD COUNT 7.1 10^3/uL (4.0-10.0)
[2023-01-04 12:54] LABS: BLOOD UREA NITROGEN 19 MG/DL (9-23); CARBON DIOXIDE LEVEL 25 MMOL/L (20-31); CHLORIDE LEVEL 107 MMOL/L (98-107); CREATININE FOR GFR 0.79 MG/DL (0.55-1.30); GLOMERULAR FILTRATION RATE > 60.0 (>32); GLUCOSE, FASTING 101 MG/DL (74-106); POTASSIUM SERUM 4.3 MMOL/L (3.5-5.1); SODIUM LEVEL 141 MMOL/L (136-145)
== END ==
LOC: M CARPUL 11:26
PROVIDERS: ATTEND Urology
DX: Z01.818 Encounter for other preprocedural examination (principal); C64.2 Malignant neoplasm of left kidney, except renal pelvis

== ENCOUNTER 2023-01-21 06:18 | Day surgery (SDC) | payer MEDICARE ==
[~2023-01-21] VITALS: Ht 170.2 cm; Wt 104.9 kg
[2023-01-21] MEDS ORDERED: ceFAZolin SOD 2 GM in IV 1 EA IV ONE (06:30)
[2023-01-21] MEDS ORDERED: propofoL 200 MG/20 ML VIAL As Ordered ONE (07:07)
[2023-01-21] MEDS ORDERED: LIDOCAINE 2% 100MG/5ML SDV (FOR ANES.) As Ordered ONE (07:07)
[2023-01-21] MEDS ORDERED: fentaNYL 100 MCG/2 ML INJECTION As Ordered ONE (07:07)
[2023-01-21] MEDS ORDERED: ONDANSETRON 4MG 2ML VIAL As Ordered ONE (07:07)
[2023-01-21] MEDS ORDERED: MIDAZOLAM INJ 2MG/2ML VIAL As Ordered ONE (07:07)
[2023-01-21] MEDS ORDERED: ACETAMINOPHEN 1000MG 100ML IV BAG As Ordered ONE (07:14)
[2023-01-21] MEDS ORDERED: FLOM0.4C39 PO (07:56)
[2023-01-21] MEDS ORDERED: OXYC1TAB23 PO (07:56)
[2023-01-21 08:14] VITALS: BP 127/60
== END 2023-01-21 08:40 | disposition home or self-care (01) ==
LOC: M SDC 06:18
PROVIDERS: ATTEND Urology
DX: N20.0 Calculus of kidney (principal); I10 Essential (primary) hypertension; E78.5 Hyperlipidemia, unspecified; M10.9 Gout, unspecified; K21.9 Gastro-esophageal reflux disease without esophagitis; G47.33 Obstructive sleep apnea (adult) (pediatric); Z79.899 Other long term (current) drug therapy; Z86.16 Personal history of COVID-19; F41.9 Anxiety disorder, unspecified; F32.A Depression, unspecified; Z79.51 Long term (current) use of inhaled steroids
CPT/HCPCS: 50590; 74018; J0131; J0690; J1100; J2250; J2405; J3010

== ENCOUNTER → 2023-02-02 | Outpatient (CLI) | payer MEDICARE ==
[~2023-02-02] MED LIST changes: +FLOM0.4C39 PO; +OXYC1TAB23 PO
== END ==
LOC: M RAD 07:53
PROVIDERS: ATTEND Urology
DX: N20.0 Calculus of kidney (principal)

== ENCOUNTER → 2023-02-02 | Outpatient (CLI) | payer MEDICARE ==
[2023-02-02 09:17] LABS: BASO # 0.1 10^3/uL (0.0-0.2); BASO % 1.1 % (0.0-1.0); EOS # 0.5 10^3/uL (0.0-0.5); EOS % 6.9 % (0.0-3.0); HEMATOCRIT 37.9 % (36.0-47.0); HEMOGLOBIN 12.3 g/dl (12.0-15.5); LYMPH % 25.4 % (24.0-44.0); MEAN CORPUSCULAR HGB CONC 32.5 g/dl (32.0-36.5); MEAN CORPUSCULAR VOLUME 92.4 fl (80.0-96.0); MONO # 0.7 10^3/uL (0.0-0.8); MONO % 8.5 % (2.0-8.0); NEUTROPHILS # 4.5 10^3/uL (1.5-8.5); NEUTROPHILS % 57.6 % (36.0-66.0); PLATELET COUNT, AUTOMATED 311 10^3/uL (150-450); WHITE BLOOD COUNT 7.9 10^3/uL (4.0-10.0)
[2023-02-02 09:33] LABS: HEMOGLOBIN A1c 6.7 % (4.0-6.0)
[2023-02-02 09:36] LABS: CREATININE, URINE 135.2 MG/DL
[2023-02-02 09:38] LABS: ALBUMIN 3.7 G/DL (3.2-5.2); ALKALINE PHOSPHATASE 56 U/L (46-116); ALT/SGPT 16 U/L (7.0-40); AST/SGOT 14 U/L (<34); BILIRUBIN,TOTAL 0.2 MG/DL (0.3-1.2); BLOOD UREA NITROGEN 17 MG/DL (9-23); CALCIUM LEVEL 9.5 MG/DL (8.3-10.6); CARBON DIOXIDE LEVEL 25 MMOL/L (20-31); CHLORIDE LEVEL 109 MMOL/L (98-107); CHOLESTEROL LEVEL 166 MG/DL (<200); CHOLESTEROL RISK RATIO 2.55 (<5); CREATININE FOR GFR 0.92 MG/DL (0.55-1.30); GLOMERULAR FILTRATION RATE > 60.0 (>32); GLUCOSE, FASTING 136 MG/DL (74-106); LDL CHOLESTEROL 72.4 MG/DL (<100); POTASSIUM SERUM 4.1 MMOL/L (3.5-5.1); SODIUM LEVEL 141 MMOL/L (136-145); TOTAL PROTEIN 6.9 G/DL (5.7-8.2); TRIGLYCERIDES LEVEL 143 MG/DL (<150)
[2023-02-02 09:40] LABS: THYROID STIMULATING HORMONE 3.286 uIU/ML (0.55-4.78); TOTAL 25(OH) VITAMIN D 29.6 NG/ML (20.0-100.0)
== END ==
LOC: M LAB 07:51
PROVIDERS: ATTEND Physician Assistant
DX: N20.0 Calculus of kidney (principal); E11.9 Type 2 diabetes mellitus without complications; Z79.899 Other long term (current) drug therapy

== ENCOUNTER → 2023-02-12 | Outpatient (REF) | payer MEDICARE ==
[~2023-02-12] MED LIST changes: -POTA10CA33 PO; +POTA10CA60 PO
== END ==
LOC: M SMT 14:54
PROVIDERS: ATTEND Physician Assistant
DX: Z48.816 Encounter for surgical aftercare following surgery on the genitourinary system (principal)

== ENCOUNTER 2023-05-06 09:31 | Emergency (ER) | payer MEDICARE ==
[~2023-05-06] VITALS: Ht 170.2 cm; Wt 230.0 kg
[2023-05-06] MEDS ORDERED: OXYB10TA23 (09:55)
[2023-05-06] MEDS ORDERED: ONDANSETRON 4MG 2ML VIAL IV ONE (10:20)
[2023-05-06] MEDS ORDERED: PANTOPRAZOLE 40MG VIAL IV ONE (10:20)
[2023-05-06] MEDS ORDERED: NS 1,000 ML IV SCH (10:20)
[2023-05-06 10:51] LABS: BASO # 0.1 10^3/uL (0.0-0.2); BASO % 0.6 % (0.0-1.0); EOS # 0.2 10^3/uL (0.0-0.5); EOS % 2.2 % (0.0-3.0); HEMATOCRIT 42.1 % (36.0-47.0); HEMOGLOBIN 13.6 g/dl (12.0-15.5); LYMPH # 1.8 10^3/uL (1.5-5.0); LYMPH % 17.5 % (24.0-44.0); MEAN CORPUSCULAR HEMOGLOBIN 29.9 pg (27.0-33.0); MEAN CORPUSCULAR HGB CONC 32.3 g/dl (32.0-36.5); MEAN CORPUSCULAR VOLUME 92.5 fl (80.0-96.0); MONO # 0.6 10^3/uL (0.0-0.8); NEUTROPHILS # 7.4 10^3/uL (1.5-8.5); NEUTROPHILS % 73.3 % (36.0-66.0); PLATELET COUNT, AUTOMATED 331 10^3/uL (150-450); RED BLOOD COUNT 4.55 10^6/uL (4.00-5.40); WHITE BLOOD COUNT 10.1 10^3/uL (4.0-10.0)
[2023-05-06] MEDS: GASTROGRAFIN SOLUTION 30ML PO SCH ×2 (11:17→11:47)
[2023-05-06 11:23] LABS: LIPASE 39 U/L (12-53)
[2023-05-06 11:26] LABS: ALBUMIN 3.6 G/DL (3.2-5.2); ALKALINE PHOSPHATASE 66 U/L (46-116); ALT/SGPT 18 U/L (7.0-40); AST/SGOT 15 U/L (<34); BILIRUBIN,DIRECT < 0.1 MG/DL (<0.4); BILIRUBIN,TOTAL 0.3 MG/DL (0.3-1.2); BLOOD UREA NITROGEN 14 MG/DL (9-23); CALCIUM LEVEL 9.4 MG/DL (8.3-10.6); CARBON DIOXIDE LEVEL 28 MMOL/L (20-31); CHLORIDE LEVEL 104 MMOL/L (98-107); GLOMERULAR FILTRATION RATE > 60.0 (>32); GLUCOSE, FASTING 154 MG/DL (74-106); SODIUM LEVEL 141 MMOL/L (136-145); TOTAL PROTEIN 7.3 G/DL (5.7-8.2)
[2023-05-06] MEDS ORDERED: ISOVUE-370 76% 100ML VIAL As Ordered ONE (12:01)
[2023-05-06] MEDS ORDERED: ONDA4TAB6 PO (14:37)
[2023-05-06 15:01] VITALS: BP 150/65; TEMP 96.5; O2SAT 96
== END 2023-05-06 15:10 | disposition home or self-care (01) ==
LOC: M ED 09:31
DX: R11.2 Nausea with vomiting, unspecified (principal); I44.4 Left anterior fascicular block; E11.9 Type 2 diabetes mellitus without complications; K21.9 Gastro-esophageal reflux disease without esophagitis; J44.9 Chronic obstructive pulmonary disease, unspecified; E78.5 Hyperlipidemia, unspecified; Z87.891 Personal history of nicotine dependence; Z79.52 Long term (current) use of systemic steroids; Z79.811 Long term (current) use of aromatase inhibitors; Z79.899 Other long term (current) drug therapy
CPT/HCPCS: 74177; 80048; 80076; 83605; 83690; 85025; 93005; 93041; 96361; 96374; 99285; C9113; J2405; Q9963; Q9967

== ENCOUNTER → 2023-06-09 | Outpatient (REF) | payer MEDICARE ==
[~2023-06-09] MED LIST changes: +ONDA4TAB6 PO; +OXYB10TA23
== END ==
LOC: M SFHCLERA 11:31
PROVIDERS: ATTEND Physician Assistant
DX: J22 Unspecified acute lower respiratory infection (principal)

== ENCOUNTER → 2023-10-12 | Outpatient (CLI) | payer MEDICARE ==
[2023-10-12 13:09] LABS: HEMATOCRIT 40.7 % (36.0-47.0); HEMOGLOBIN 13.2 g/dl (12.0-15.5); MEAN CORPUSCULAR HEMOGLOBIN 30.1 pg (27.0-33.0); MEAN CORPUSCULAR HGB CONC 32.4 g/dl (32.0-36.5); MEAN CORPUSCULAR VOLUME 92.9 fl (80.0-96.0); PLATELET COUNT, AUTOMATED 318 10^3/uL (150-450); RED BLOOD COUNT 4.38 10^6/uL (4.00-5.40); WHITE BLOOD COUNT 17.2 10^3/uL (4.0-10.0)
[2023-10-12 13:16] LABS: ERYTHROCYTE SEDIMENTATION RATE 69 mm/hr (0-30)
[2023-10-12 13:21] LABS: INR 0.99; PROTHROMBIN TIME 12.8 SECONDS (12.5-14.5)
[2023-10-12 13:37] LABS: ALBUMIN 3.7 G/DL (3.2-5.2); BILIRUBIN,TOTAL 0.3 MG/DL (0.3-1.2); CALCIUM LEVEL 9.4 MG/DL (8.3-10.6); CREATININE FOR GFR 0.98 MG/DL (0.55-1.30); POTASSIUM SERUM 4.5 MMOL/L (3.5-5.1)
== END ==
LOC: M RAD 12:15
PROVIDERS: ATTEND Orthopaedic Surgery
DX: Z01.818 Encounter for other preprocedural examination (principal); M17.11 Unilateral primary osteoarthritis, right knee; Z79.899 Other long term (current) drug therapy; M19.09 Primary osteoarthritis, other specified site

== ENCOUNTER → 2023-10-25 | Outpatient (CLI) | payer MEDICARE | LOC: M RAD 13:46 | PROVIDERS: ATTEND Nurse Practitioner Adult Health | DX: J44.9 Chronic obstructive pulmonary disease, unspecified (principal) ==

== ENCOUNTER → 2023-11-23 | Outpatient (CLI) | payer MEDICARE ==
[2023-11-23 16:35] LABS: HEMATOCRIT 40.6 % (36.0-47.0); HEMOGLOBIN 12.9 g/dl (12.0-15.5); MEAN CORPUSCULAR HEMOGLOBIN 30.2 pg (27.0-33.0); MEAN CORPUSCULAR HGB CONC 31.8 g/dl (32.0-36.5); MEAN CORPUSCULAR VOLUME 95.1 fl (80.0-96.0); PLATELET COUNT, AUTOMATED 299 10^3/uL (150-450); RED BLOOD COUNT 4.27 10^6/uL (4.00-5.40); WHITE BLOOD COUNT 10.2 10^3/uL (4.0-10.0)
[2023-11-23 16:48] LABS: INR 1.02; PROTHROMBIN TIME 13.1 SECONDS (12.5-14.5)
[2023-11-23 16:50] LABS: ERYTHROCYTE SEDIMENTATION RATE 59 mm/hr (0-30)
[2023-11-23 17:00] LABS: ALBUMIN 3.6 G/DL (3.2-5.2); ALKALINE PHOSPHATASE 60 U/L (46-116); ALT/SGPT 10 U/L (7.0-40); AST/SGOT 17 U/L (<34); BILIRUBIN,TOTAL 0.3 MG/DL (0.3-1.2); BLOOD UREA NITROGEN 16 MG/DL (9-23); CARBON DIOXIDE LEVEL 29 MMOL/L (20-31); CHLORIDE LEVEL 105 MMOL/L (98-107); CREATININE FOR GFR 0.85 MG/DL (0.55-1.30); GLOMERULAR FILTRATION RATE > 60.0 (>32); GLUCOSE, FASTING 113 MG/DL (74-106); POTASSIUM SERUM 4.5 MMOL/L (3.5-5.1); SODIUM LEVEL 139 MMOL/L (136-145); TOTAL PROTEIN 6.9 G/DL (5.7-8.2)
== END ==
LOC: M WUC 11:44
PROVIDERS: ATTEND Orthopaedic Surgery
DX: Z01.818 Encounter for other preprocedural examination (principal); Z01.811 Encounter for preprocedural respiratory examination; M17.11 Unilateral primary osteoarthritis, right knee; J44.9 Chronic obstructive pulmonary disease, unspecified; G47.33 Obstructive sleep apnea (adult) (pediatric); Z87.891 Personal history of nicotine dependence; Z79.899 Other long term (current) drug therapy; Z79.51 Long term (current) use of inhaled steroids

== ENCOUNTER → 2023-11-27 | Outpatient (CLI) | payer MEDICARE ==
[2023-11-27 15:48] LABS: HEMATOCRIT 38.9 % (36.0-47.0); HEMOGLOBIN 12.3 g/dl (12.0-15.5); MEAN CORPUSCULAR HEMOGLOBIN 29.6 pg (27.0-33.0); MEAN CORPUSCULAR HGB CONC 31.6 g/dl (32.0-36.5); MEAN CORPUSCULAR VOLUME 93.5 fl (80.0-96.0); PLATELET COUNT, AUTOMATED 291 10^3/uL (150-450); RED BLOOD COUNT 4.16 10^6/uL (4.00-5.40); WHITE BLOOD COUNT 9.8 10^3/uL (4.0-10.0)
[2023-11-27 15:55] LABS: ERYTHROCYTE SEDIMENTATION RATE 48 mm/hr (0-30)
[2023-11-27 16:01] LABS: PROTHROMBIN TIME 12.9 SECONDS (12.5-14.5)
[2023-11-27 16:16] LABS: ALBUMIN 3.8 G/DL (3.2-5.2); ALKALINE PHOSPHATASE 61 U/L (46-116); ALT/SGPT 14 U/L (7.0-40); AST/SGOT 15 U/L (<34); BILIRUBIN,TOTAL 0.3 MG/DL (0.3-1.2); BLOOD UREA NITROGEN 15 MG/DL (9-23); CALCIUM LEVEL 9.7 MG/DL (8.3-10.6); CARBON DIOXIDE LEVEL 34 MMOL/L (20-31); CHLORIDE LEVEL 105 MMOL/L (98-107); CREATININE FOR GFR 0.92 MG/DL (0.55-1.30); GLOMERULAR FILTRATION RATE > 60.0 (>32); GLUCOSE, FASTING 103 MG/DL (74-106); POTASSIUM SERUM 4.2 MMOL/L (3.5-5.1); SODIUM LEVEL 143 MMOL/L (136-145)
== END ==
LOC: M LAB 15:23
PROVIDERS: ATTEND Orthopaedic Surgery
DX: Z01.812 Encounter for preprocedural laboratory examination (principal); M17.11 Unilateral primary osteoarthritis, right knee

== ENCOUNTER → 2023-12-28 | Outpatient (CLI) | payer MEDICARE ==
[~2023-12-28] MED LIST changes: +DOXY-323 PO; -DOXY-443 PO; +ISOVUE-370 76% 100ML VIAL ONE; -POTA10CA60 PO; +POTA10CA70 PO
== END ==
LOC: M PLAIMG 13:28
PROVIDERS: ATTEND Physician Assistant
DX: Z85.528 Personal history of other malignant neoplasm of kidney (principal); K80.20 Calculus of gallbladder without cholecystitis without obstruction
CPT/HCPCS: 74170; Q9967

== ENCOUNTER → 2025-01-01 | Outpatient (CLI) | payer MEDICARE ==
[~2025-01-01] MED LIST changes: -CYCL5TAB PO; +CYCL5TAB4 PO; -DOXY-323 PO; +DOXY-441 PO; -FLOM0.4C39 PO; -ISOVUE-370 76% 100ML VIAL ONE; +ONDA-282 PO; -ONDA4TAB6 PO; +TAMS-18 PO
[2025-01-01 17:21] LABS: CALCIUM LEVEL 9.6 MG/DL (8.3-10.6); CREATININE FOR GFR 0.91 MG/DL (0.55-1.30); POTASSIUM SERUM 4.2 MMOL/L (3.5-5.1)
== END ==
LOC: M LAB 16:19
PROVIDERS: ATTEND Urology
DX: C64.2 Malignant neoplasm of left kidney, except renal pelvis (principal)

== ENCOUNTER → 2025-01-04 | Outpatient (CLI) | payer MEDICARE ==
[~2025-01-04] MED LIST changes: +ISOVUE-370 76% 100ML VIAL As Ordered ONE
== END ==
LOC: M RAD 12:07
PROVIDERS: ATTEND Urology
DX: C64.2 Malignant neoplasm of left kidney, except renal pelvis (principal)
CPT/HCPCS: 71046; 74170; Q9967

== ENCOUNTER → 2025-03-21 | Outpatient (CLI) | payer MEDICARE ==
[~2025-03-21] MED LIST changes: -ISOVUE-370 76% 100ML VIAL As Ordered ONE; -PRAV80TA2 PO; +PRAV80TA75 PO
== END ==
LOC: M WHC 13:25
PROVIDERS: ATTEND Internal Medicine
DX: Z13.820 Encounter for screening for osteoporosis (principal); M85.851 Other specified disorders of bone density and structure, right thigh